=== PATIENT | female | born 1945 | race Caucasian/White ===

== ENCOUNTER 2023-08-31 09:45 | Outpatient (RCR) | payer MEDICARE, SELFPAY ==
--- NOTE | 2023-05-11 10:34 | PT.OIE ---
Current Diagnoses Pain in right hip (05/11/23) Pain in right knee (05/11/23) Muscle weakness (generalized) (05/11/23) Difficulty in walking, not elsewhere classified (05/11/23) Abnormal posture (05/11/23) Past Medical History (Last Updated 03/31/23 @ 06:33 by ABRAM Canela) History of anxiety History of panic attacks History of syncope Visit Care Team Role Provider Type ABRAM Canela Attending Provider Advanced Railcar Switchman Family Provider Primary Care Provider Referring Provider Specialty: [facility] Address: [address] [place] [address] Email: [email or web address] Physical Therapy Initial Evaluation PT-OP-A Visit Information Start: 04/27/23 10:59 Freq: Status: Active Protocol: Document 05/11/23 08:20 [facility] (Rec: 05/11/23 09:07 [facility] [id number]) Out-Patient Physical Therapy Visit Information Visit Information Visit Type Initial Evaluation Visit Note 05/12 Visit Start Time 08:22 Visit Stop Time 09:06 Total Visit Minutes 44 Visit Number 1 Number of HOME HEALTH LPN Visits 0 PT-OP-B Current Condition Start: 04/27/23 10:59 Freq: Status: Active Protocol: Document 05/11/23 08:20 [facility] (Rec: 05/11/23 09:07 [facility] [id number]) Current Condition History of Current Condition Onset Date 6 months ago Current Complaints R knee pain History of Current Condition Pt had R knee pain that her doctor gave her exercsies for about 10 to 12 years ago and it was better. She lost exercises. Its so painful that it wakes her at night. IT feels ok whens he goes to bed. It gets sore when she sits or stands a lot. She has been trying to go to [employer] but soem of the exercises bother her. She likes to garden on her knees. Pt tries to go for a walk everday [place] seh thinks that helps. Uphill is harder than downhill. She is in a hiking group and it feels ok while hiking but she pays for it the next day. Denies swelling. Pt notes she feels like she has to lose weight. She is limiting most things. She takes ibuprofen when she hikes or after or when she needs and it helps. Does have problems in past w/ plantar fascitis and has store bought insoles and is particular w/ shoes. Pt notes buttocks pain that happens when the knee gets pretty back. Once in a while she gets back painb ut notes she tends to lift things that she should not like a wheel [place]. Treatment Goals Patient/Caregiver Goals be able to garden when it is time, be able to do walks w/o pain, be able to do exercises at home and gym w/o pain PT-OP-C Subjective Start: 04/27/23 10:59 Freq: Status: Active Protocol: Document 05/11/23 08:20 [facility] (Rec: 05/11/23 09:07 [facility] [id number]) Patient Questionnaires Lower Extremity Functional Scale LEFS Score 48/80 OP-PT Pain Assessment Location R knee Pain Location Details lat ant and more inf knee Description Sharp Frequency Intermittent Variations/Patterns (upper buttocks pain) Pain Aggravating Factors Standing,Sitting,Walking,Stair Climbing,Bending Other Pain Aggravating Factors middle of night, uphill, leg press, hip abd machine Pain Alleviating Factors Heat,Medication PT-OP-D Balance Start: 04/27/23 10:59 Freq: Status: Active Protocol: Document 05/11/23 08:20 [facility] (Rec: 05/11/23 09:07 [facility] [id number]) Balance Tests Single Limb Standing Single Limb- Right 5 sec Single Limb- Left 8 sec PT-OP-F Manual Assessment Start: 04/27/23 10:59 Freq: Status: Active Protocol: Document 05/11/23 08:20 [facility] (Rec: 05/11/23 09:07 [facility] [id number]) Manual Assessments Joint Mobility Assessment Joint Mobility Assessment IR B femur and IR w/ squat; LLE turned out PT-OP-G Mobility & Gait Start: 04/27/23 10:59 Freq: Status: Active Protocol: Document 05/11/23 08:20 [facility] (Rec: 05/11/23 09:07 [facility] [id number]) OP Gait Assessment Comments Gait Comments comes down hard on RLE and has dec RLE stance time and dec push off PT-OP-K Range of Motion Start: 04/27/23 10:59 Freq: Status: Active Protocol: Document 05/11/23 08:20 [facility] (Rec: 05/11/23 09:07 [facility] [id number]) Knee Goniometric Range of Motion Knee Right Flexion Active (degrees) 114 Extension Active (degrees) 4 Comments ant strain w/ext & pull in HS w/flex Left Flexion Active (degrees) 124 Extension Active (degrees) 2 PT-OP-L Special Tests Start: 04/27/23 10:59 Freq: Status: Active Protocol: Document 05/11/23 08:20 [facility] (Rec: 05/11/23 09:07 [facility] [id number]) Special Tests Knee Special Tests Calvin Test Test Results neg but pt guards Thessaly Test 5 Degrees Test Results positive Apley's Compression Test Results neg PT-OP-M Strength Start: 04/27/23 10:59 Freq: Status: Active Protocol: Document 05/11/23 08:20 [facility] (Rec: 05/11/23 09:07 [facility] [id number]) Hip Strength Hip Manual Muscle Testing Right Flexion (L2) 4 Good Extension (S1) 3+ Fair+ Abduction 3 Fair Adduction 3+ Fair+ External Rotation 4- Good- Internal Rotation 3 Fair Left Flexion (L2) 5 Normal Extension (S1) 3+ Fair+ Abduction 3+ Fair+ Adduction 4 Good External Rotation 4 Good Internal Rotation 4+ Good+ Knee Strength Knee Manual Muscle Testing Right Flexion (S2) 5 Normal Extension (L3) 5 Normal Left Flexion (S2) 5 Normal Extension (L3) 5 Normal Ankle/Foot Strength Ankle and Foot Manual Muscle Testing Right Dorsiflexion (L4) 5 Normal Plantarflexion (S1) 5 Normal Left Dorsiflexion (L4) 5 Normal Plantarflexion (S1) 5 Normal Comments 20 heel raises B PT-OP-T Assessment and Plan Start: 04/27/23 10:59 Freq: Status: Active Protocol: Document 05/11/23 08:20 [facility] (Rec: 05/11/23 09:07 [facility] [id number]) Physical Therapy Assessment Rehab Potential Rehabilitation Potential Good Evaluation Complexity Number of Personal Factors/Comorbidities 1-2 Number of Body Systems Impaired 4 or More Clinical Presentation at Evaluation Evolving Impairments Impairments Activity Tolerance,Balance, Functional Activities, Functional Mobility,Gait,Pain, Posture,ROM,Soft Tissue Mobility,Strength Goals activity Short Term Goal (STG) Pt will be able to sleep w/o inc pain in R knee or hip STG Duration 07/02/23 Penitentiary Goal (LTG) Pt will be able go for walks and hikes w/o pain that day or the next day greater than 2/ 10. LTG Duration 08/03/23 LEFS Impairment 48/80 Short Term Goal (STG) Pt will show improved functional ability by improved score of LEFS to at least 53/ 80 STG Duration 07/02/23 Gamb Cutter Goal (LTG) Pt will show improved functional ability by improved score of LEFS to at least 60/ 80 LTG Duration 08/03/23 strength Short Term Goal (STG) Pt will be indep w/HEP STG Duration 07/02/23 Gamb Cutter Goal (LTG) Pt will score at least 4+/5 on BLE MMT w/o inc pain and at least 3/5 on LPM into all planes to shwo improved stability to allow pt to cont active lifestyle w/o inc pain. LTG Duration 08/03/23 balance Impairment SLS 5 sec R; 8 sec L Short Term Goal (STG) Pt will improve SLS to at least 10 sec B STG Duration 07/02/23 Gamb Cutter Goal (LTG) Pt will improve SLS to at least 15 sec B LTG Duration 08/03/23 Assessment Summary Assessment Pt presents w/R knee pain that started about 6 months ago taht has made her limit some of her activity. She still tries to walks, hike and go to exercise class, but does get pain after these. She has hx of R knee pain years ago that improved w/exercises from her doctor. She also has R hip pain in sup glute which is likely related as she has R>L IR of femur in standing which is likely contributing to dec knee tracking. She has dec ROM of R Knee, dec RLE strength and dec balacne R>LLE. She was encouraged to start w/SL heel raises and SLS at home. She would benefit from skilled PT To address her deficits and improve her ability to remain active w/o inc pain. Physical Therapy Plan Frequency and Duration Frequency of Treatment 1-2x/wk Duration of treatment (weeks) 12 Plan of Care Start Date 05/11/23 Plan of Care End Date 08/03/23 Therapeutic Interventions Therapeutic Interventions Balance Training,Gait Training ,Home Exercise Program,Joint Mobilizations,Manual Therapy, Neuromuscular Re-education, Orthotic/Prosthetic Management ,Patient/Caregiver Education, Self-Care/Home Management,Soft Tissue Mobilization,Taping, Therapeutic Activities, Therapeutic Exercises Modalities Cold Pack/Ice Massage,Electric Stimulation,Hot Packs, Infrared Therapy,Ultrasound Next Visit Focus/Plan Next Note Type Treatment Note Next Visit Plan HEP: sit to stands; SL heel raises, SLS, sidesteps, standing hip ext, clamshells manual to R glutes and joint mobs to hip to improve RLE tracking
--- NOTE | 2023-05-11 10:34 | PT.OPPOC ---
Physical, Occupational & Speech Therapy At [facility] Current Diagnoses Pain in right hip (05/11/23) Pain in right knee (05/11/23) Muscle weakness (generalized) (05/11/23) Difficulty in walking, not elsewhere classified (05/11/23) Abnormal posture (05/11/23) Visit Care Team Role Provider Type ABRAM Canela Attending Provider Advanced Patient Services Technician Family Provider Primary Care Provider Referring Provider Specialty: Family Practice Address: [address] [place] [address], [facility] Email: [email or web address] Plan Of Care PT-OP-T Assessment and Plan Start: 04/27/23 10:59 Freq: Status: Active Protocol: Document 05/11/23 08:20 [facility] (Rec: 05/11/23 09:07 [facility] [id number]) Physical Therapy Assessment Rehab Potential Rehabilitation Potential Good Evaluation Complexity Number of Personal Factors/Comorbidities 1-2 Number of Body Systems Impaired 4 or More Clinical Presentation at Evaluation Evolving Impairments Impairments Activity Tolerance,Balance, Functional Activities, Functional Mobility,Gait,Pain, Posture,ROM,Soft Tissue Mobility,Strength Goals activity Short Term Goal (STG) Pt will be able to sleep w/o inc pain in R knee or hip STG Duration 07/02/23 Prison Goal (LTG) Pt will be able go for walks and hikes w/o pain that day or the next day greater than 2/ 10. LTG Duration 08/03/23 LEFS Impairment 48/80 Short Term Goal (STG) Pt will show improved functional ability by improved score of LEFS to at least 53/ 80 STG Duration 07/02/23 Patient Care Manager Goal (LTG) Pt will show improved functional ability by improved score of LEFS to at least 60/ 80 LTG Duration 08/03/23 strength Short Term Goal (STG) Pt will be indep w/HEP STG Duration 07/02/23 Patient Care Manager Goal (LTG) Pt will score at least 4+/5 on BLE MMT w/o inc pain and at least 3/5 on LPM into all planes to shwo improved stability to allow pt to cont active lifestyle w/o inc pain. LTG Duration 08/03/23 balance Impairment SLS 5 sec R; 8 sec L Short Term Goal (STG) Pt will improve SLS to at least 10 sec B STG Duration 07/02/23 Prison Goal (LTG) Pt will improve SLS to at least 15 sec B LTG Duration 08/03/23 Assessment Summary Assessment Pt presents w/R knee pain that started about 6 months ago taht has made her limit some of her activity. She still tries to walks, hike and go to exercise class, but does get pain after these. She has hx of R knee pain years ago that improved w/exercises from her doctor. She also has R hip pain in sup glute which is likely related as she has R>L IR of femur in standing which is likely contributing to dec knee tracking. She has dec ROM of R Knee, dec RLE strength and dec balacne R>LLE. She was encouraged to start w/SL heel raises and SLS at home. She would benefit from skilled PT To address her deficits and improve her ability to remain active w/o inc pain. Physical Therapy Plan Frequency and Duration Frequency of Treatment 1-2x/wk Duration of treatment (weeks) 12 Plan of Care Start Date 05/11/23 Plan of Care End Date 08/03/23 Therapeutic Interventions Therapeutic Interventions Balance Training,Gait Training ,Home Exercise Program,Joint Mobilizations,Manual Therapy, Neuromuscular Re-education, Orthotic/Prosthetic Management ,Patient/Caregiver Education, Self-Care/Home Management,Soft Tissue Mobilization,Taping, Therapeutic Activities, Therapeutic Exercises Modalities Cold Pack/Ice Massage,Electric Stimulation,Hot Packs, Infrared Therapy,Ultrasound Next Visit Focus/Plan Next Note Type Treatment Note Next Visit Plan HEP: sit to stands; SL heel raises, SLS, sidesteps, standing hip ext, clamshells manual to R glutes and joint mobs to hip to improve RLE tracking Plan of Care Dates Plan of Care Start Date 05/11/23 Plan of Care End Date 08/03/23 Electronically Signed by: Haylee Elmore, PT 05/11/23 5840 If you are in agreement with this Plan of Care, please return a signed and dated copy. I have reviewed this Plan of Care and certify that the skilled therapy services above are required to meet the patient?s needs. Physician Signature Date Printed Name and Credentials Clinical Instructor Signature Printed Name and Credentials
--- NOTE | 2023-05-13 08:19 | PT.OTN ---
Current Diagnoses Pain in right hip (05/13/23) Pain in right knee (05/13/23) Muscle weakness (generalized) (05/13/23) Difficulty in walking, not elsewhere classified (05/13/23) Abnormal posture (05/13/23) Physical Therapy Treatment Note PT-OP-A Visit Information Start: 04/27/23 10:59 Freq: Status: Active Protocol: Document 05/13/23 07:32 [facility] (Rec: 05/13/23 08:19 [facility] [id number]) Out-Patient Physical Therapy Visit Information Visit Information Visit Type Treatment Note Visit Note 06/12 Visit Start Time 07:33 Visit Stop Time 08:15 Total Visit Minutes 42 Visit Number 2 Number of SKIP MINER Visits 0 PT-OP-B Current Condition Start: 04/27/23 10:59 Freq: Status: Active Protocol: Document 05/11/23 08:20 [facility] (Rec: 05/11/23 09:07 [facility] [id number]) Current Condition History of Current Condition Onset Date 6 months ago Current Complaints R knee pain History of Current Condition Pt had R knee pain that her doctor gave her exercsies for about 10 to 12 years ago and it was better. She lost exercises. Its so painful that it wakes her at night. IT feels ok whens he goes to bed. It gets sore when she sits or stands a lot. She has been trying to go to [employer] but soem of the exercises bother her. She likes to garden on her knees. Pt tries to go for a walk everday [place] thinks that helps. [place] is harder than downhill. She is in a hiking group and it feels ok while hiking but she pays for it the next day. Denies swelling. Pt notes she feels like she has to lose weight. She is limiting most things. She takes ibuprofen when she hikes or after or when she needs and it helps. Does have problems in past w/ plantar fascitis and has store bought insoles and is particular w/ shoes. Pt notes buttocks pain that happens when the knee gets pretty back. Once in a while she gets back painb ut notes she tends to lift things that she should not like a wheel [place]. Treatment Goals Patient/Caregiver Goals be able to garden when it is time, be able to do walks w/o pain, be able to do exercises at home and gym w/o pain PT-OP-C Subjective Start: 04/27/23 10:59 Freq: Status: Active Protocol: Document 05/13/23 07:32 [facility] (Rec: 05/13/23 08:19 [facility] [id number]) OP-PT Subjective Patient Comments Patient Comments Pt reports calf was sore w/ heel raises PT-OP-D Balance Start: 04/27/23 10:59 Freq: Status: Active Protocol: Document 05/11/23 08:20 [facility] (Rec: 05/11/23 09:07 [facility] [id number]) Balance Tests Single Limb Standing Single Limb- Right 5 sec Single Limb- Left 8 sec PT-OP-F Manual Assessment Start: 04/27/23 10:59 Freq: Status: Active Protocol: Document 05/11/23 08:20 [facility] (Rec: 05/11/23 09:07 [facility] [id number]) Manual Assessments Joint Mobility Assessment Joint Mobility Assessment IR B femur and IR w/ squat; LLE turned out PT-OP-G Mobility & Gait Start: 04/27/23 10:59 Freq: Status: Active Protocol: Document 05/11/23 08:20 [facility] (Rec: 05/11/23 09:07 [facility] [id number]) OP Gait Assessment Comments Gait Comments comes down hard on RLE and has dec RLE stance time and dec push off PT-OP-K Range of Motion Start: 04/27/23 10:59 Freq: Status: Active Protocol: Document 05/11/23 08:20 [facility] (Rec: 05/11/23 09:07 [facility] [id number]) Knee Goniometric Range of Motion Knee Right Flexion Active (degrees) 114 Extension Active (degrees) 4 Comments ant strain w/ext & pull in HS w/flex Left Flexion Active (degrees) 124 Extension Active (degrees) 2 PT-OP-L Special Tests Start: 04/27/23 10:59 Freq: Status: Active Protocol: Document 05/11/23 08:20 [facility] (Rec: 05/11/23 09:07 [facility] [id number]) Special Tests Knee Special Tests Calvin Test Test Results neg but pt guards Thessaly Test 5 Degrees Test Results positive Apley's Compression Test Results neg PT-OP-M Strength Start: 04/27/23 10:59 Freq: Status: Active Protocol: Document 05/11/23 08:20 [facility] (Rec: 05/11/23 09:07 [facility] [id number]) Hip Strength Hip Manual Muscle Testing Right Flexion (L2) 4 Good Extension (S1) 3+ Fair+ Abduction 3 Fair Adduction 3+ Fair+ External Rotation 4- Good- Internal Rotation 3 Fair Left Flexion (L2) 5 Normal Extension (S1) 3+ Fair+ Abduction 3+ Fair+ Adduction 4 Good External Rotation 4 Good Internal Rotation 4+ Good+ Knee Strength Knee Manual Muscle Testing Right Flexion (S2) 5 Normal Extension (L3) 5 Normal Left Flexion (S2) 5 Normal Extension (L3) 5 Normal Ankle/Foot Strength Ankle and Foot Manual Muscle Testing Right Dorsiflexion (L4) 5 Normal Plantarflexion (S1) 5 Normal Left Dorsiflexion (L4) 5 Normal Plantarflexion (S1) 5 Normal Comments 20 heel raises B PT-OP-Q Treatments Start: 04/27/23 10:59 Freq: Status: Active Protocol: Document 05/13/23 07:32 [facility] (Rec: 05/13/23 08:19 [facility] [id number]) Therapeutic Exercises Sidelying Exercises clamshells Side bilateral Reps/Minutes 10 w/o resistance and 10 w/ resistance Standing Exercises heel raises Standing Exercise Name SL Side bilateral Reps/Minutes 10 hip ext Standing Exercise Name bent over on bar Side bilateral Reps/Minutes 2x10 sit to stand Side bilateral Equipment Used L2 around knees Reps/Minutes 10 sidesteps Side bilateral Equipment Used L1, L2 Reps/Minutes 20ft Manual Therapy Treatment Soft Tissue Mobilization piriformis Body Location R Mobilization Type Sustained Pressure Intensity/Depth Moderate Body Position Sidelying Add Body Location R Mobilization Type Sustained Pressure Intensity/Depth Moderate Body Position Supine Comments w/hip ER quad Body Location R Mobilization Type Rolling Intensity/Depth Moderate Body Position Supine Joint Mobilizations hip Joint R ER M free the ball Body Position Hooklying PT-OP-T Assessment and Plan Start: 04/27/23 10:59 Freq: Status: Active Protocol: Document 05/13/23 07:32 [facility] (Rec: 05/13/23 08:19 [facility] [id number]) Physical Therapy Assessment Goals activity Short Term Goal (STG) Pt will be able to sleep w/o inc pain in R knee or hip STG Duration 3/1/24 Framing Mill Supervisor Goal (LTG) Pt will be able go for walks and hikes w/o pain that day or the next day greater than 2/ 10. LTG Duration 08/03/23 LEFS Impairment 48/80 Short Term Goal (STG) Pt will show improved functional ability by improved score of LEFS to at least 53/ 80 STG Duration 07/02/23 Custodial Goal (LTG) Pt will show improved functional ability by improved score of LEFS to at least 60/ 80 LTG Duration 08/03/23 strength Short Term Goal (STG) Pt will be indep w/HEP STG Duration 07/02/23 Custodial Goal (LTG) Pt will score at least 4+/5 on BLE MMT w/o inc pain and at least 3/5 on LPM into all planes to shwo improved stability to allow pt to cont active lifestyle w/o inc pain. LTG Duration 08/03/23 balance Impairment SLS 5 sec R; 8 sec L Short Term Goal (STG) Pt will improve SLS to at least 10 sec B STG Duration 07/02/23 Framing Mill Supervisor Goal (LTG) Pt will improve SLS to at least 15 sec B LTG Duration 08/03/23 Assessment Summary Assessment Pt did well with exercises w/o inc pain. She requires cues for form and positioning, but does well. She had improved hip ER after manual. Physical Therapy Plan Frequency and Duration Frequency of Treatment 1-2x/wk Duration of treatment (weeks) 12 Plan of Care Start Date 05/11/23 Plan of Care End Date 08/03/23 Next Visit Focus/Plan Next Note Type Treatment Note Next Visit Plan review HEP: sit to stands; SL heel raises, SLS, sidesteps, standing hip ext, clamshells manual to R glutes and joint mobs to hip to improve RLE tracking
--- NOTE | 2023-05-18 08:15 | PT.OTN ---
Current Diagnoses Pain in right hip (05/18/23) Pain in right knee (05/18/23) Muscle weakness (generalized) (05/18/23) Difficulty in walking, not elsewhere classified (05/18/23) Abnormal posture (05/18/23) Physical Therapy Treatment Note PT-OP-A Visit Information Start: 04/27/23 10:59 Freq: Status: Active Protocol: Document 05/18/23 07:30 SP (Rec: 05/18/23 08:19 SP [id number]) Out-Patient Physical Therapy Visit Information Visit Information Visit Type Treatment Note Visit Note 07/10 Visit Start Time 07:30 Visit Stop Time 08:15 Total Visit Minutes 45 Visit Number 3 Number of OPERATIONS MANAGER STATION Visits 1 PT-OP-B Current Condition Start: 04/27/23 10:59 Freq: Status: Active Protocol: Document 05/11/23 08:20 [facility] (Rec: 05/11/23 09:07 [facility] [id number]) Current Condition History of Current Condition Onset Date 6 months ago Current Complaints R knee pain History of Current Condition Pt had R knee pain that her doctor gave her exercsies for about 10 to 12 years ago and it was better. She lost exercises. Its so painful that it wakes her at night. IT feels ok whens he goes to bed. It gets sore when she sits or stands a lot. She has been trying to go to [employer] but soem of the exercises bother her. She likes to garden on her knees. Pt tries to go for a walk everday [place] thinks that helps. [place] is harder than downhill. She is in a hiking group and it feels ok while hiking but she pays for it the next day. Denies swelling. Pt notes she feels like she has to lose weight. She is limiting most things. She takes ibuprofen when she hikes or after or when she needs and it helps. Does have problems in past w/ plantar fascitis and has store bought insoles and is particular w/ shoes. Pt notes buttocks pain that happens when the knee gets pretty back. 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 Treatment Goals Patient/Caregiver Goals be able to garden when it is time, be able to do walks w/o pain, be able to do exercises at home and gym w/o pain PT-OP-C Subjective Start: 04/27/23 10:59 Freq: Status: Active Protocol: Document 05/18/23 07:30 SP (Rec: 05/18/23 08:19 SP [id number]) OP-PT Subjective Patient Comments Patient Comments Pt reports R knee sore after last tx, doing exercise every other day. PT-OP-D Balance Start: 04/27/23 10:59 Freq: Status: Active Protocol: Document 05/11/23 08:20 [facility] (Rec: 05/11/23 09:07 [facility] [id number]) Balance Tests Single Limb Standing Single Limb- Right 5 sec Single Limb- Left 8 sec PT-OP-F Manual Assessment Start: 04/27/23 10:59 Freq: Status: Active Protocol: Document 05/11/23 08:20 [facility] (Rec: 05/11/23 09:07 [facility] [id number]) Manual Assessments Joint Mobility Assessment Joint Mobility Assessment IR B femur and IR w/ squat; LLE turned out PT-OP-G Mobility & Gait Start: 04/27/23 10:59 Freq: Status: Active Protocol: Document 05/11/23 08:20 [facility] (Rec: 05/11/23 09:07 [facility] [id number]) OP Gait Assessment Comments Gait Comments comes down hard on RLE and has dec RLE stance time and dec push off PT-OP-K Range of Motion Start: 04/27/23 10:59 Freq: Status: Active Protocol: Document 05/11/23 08:20 [facility] (Rec: 05/11/23 09:07 [facility] [id number]) Knee Goniometric Range of Motion Knee Right Flexion Active (degrees) 114 Extension Active (degrees) 4 Comments ant strain w/ext & pull in HS w/flex Left Flexion Active (degrees) 124 Extension Active (degrees) 2 PT-OP-L Special Tests Start: 04/27/23 10:59 Freq: Status: Active Protocol: Document 05/11/23 08:20 [facility] (Rec: 05/11/23 09:07 [facility] [id number]) Special Tests Knee Special Tests Calvin Test Test Results neg but pt guards Thessaly Test 5 Degrees Test Results positive Apley's Compression Test Results neg PT-OP-M Strength Start: 04/27/23 10:59 Freq: Status: Active Protocol: Document 05/11/23 08:20 [facility] (Rec: 05/11/23 09:07 [facility] [id number]) Hip Strength Hip Manual Muscle Testing Right Flexion (L2) 4 Good Extension (S1) 3+ Fair+ Abduction 3 Fair Adduction 3+ Fair+ External Rotation 4- Good- Internal Rotation 3 Fair Left Flexion (L2) 5 Normal Extension (S1) 3+ Fair+ Abduction 3+ Fair+ Adduction 4 Good External Rotation 4 Good Internal Rotation 4+ Good+ Knee Strength Knee Manual Muscle Testing Right Flexion (S2) 5 Normal Extension (L3) 5 Normal Left Flexion (S2) 5 Normal Extension (L3) 5 Normal Ankle/Foot Strength Ankle and Foot Manual Muscle Testing Right Dorsiflexion (L4) 5 Normal Plantarflexion (S1) 5 Normal Left Dorsiflexion (L4) 5 Normal Plantarflexion (S1) 5 Normal Comments 20 heel raises B PT-OP-Q Treatments Start: 04/27/23 10:59 Freq: Status: Active Protocol: Document 05/18/23 07:30 SP (Rec: 05/18/23 08:19 SP [id number]) Cardio Equipment Recumbent Elliptical ([employer]!) Duration (Minutes) 6 Resistance 2 Seat Position 5 Other LEs Therapeutic Exercises Sidelying Exercises clamshells Side bilateral Resistance TB #2 below knee Reps/Minutes 2x10 Comments tactile cue below knee, less strain lateral R knee Standing Exercises SLS Side bilateral Equipment Used hands hover table Reps/Minutes 4-7 sec each LE Comments cued elongated posture, TA heel raises Standing Exercise Name SL Side bilateral Equipment Used light contact table Reps/Minutes 10 x2 Comments cued elongated posture, TA hip ext Standing Exercise Name bent over on bar Side bilateral Resistance AROM Reps/Minutes 2x10 Comments contact table sit to stand Standing Exercise Name 1. STS 2. eccentric taps Side bilateral Resistance L2 around knees Equipment Used arms across chest Reps/Minutes 10 reps each Comments cued knees apart sidesteps Standing Exercise Name F/B/Lateral Side bilateral Resistance L2 at mid prieto Reps/Minutes 10 ft 3 laps PT-OP-T Assessment and Plan Start: 04/27/23 10:59 Freq: Status: Active Protocol: Document 05/18/23 07:30 SP (Rec: 05/18/23 08:19 SP [id number]) Physical Therapy Assessment Goals activity Short Term Goal (STG) Pt will be able to sleep w/o inc pain in R knee or hip STG Duration 07/02/23 Fdc Goal (LTG) Pt will be able go for walks and hikes w/o pain that day or the next day greater than 2/ 10. LTG Duration 08/03/23 LEFS Impairment 48/80 Short Term Goal (STG) Pt will show improved functional ability by improved score of LEFS to at least 53/ 80 STG Duration 07/02/23 Wire Worker Goal (LTG) Pt will show improved functional ability by improved score of LEFS to at least 60/ 80 LTG Duration 08/03/23 strength Short Term Goal (STG) Pt will be indep w/HEP STG Duration 07/02/23 Fdc Goal (LTG) Pt will score at least 4+/5 on BLE MMT w/o inc pain and at least 3/5 on LPM into all planes to shwo improved stability to allow pt to cont active lifestyle w/o inc pain. LTG Duration 08/03/23 balance Impairment SLS 5 sec R; 8 sec L Short Term Goal (STG) Pt will improve SLS to at least 10 sec B STG Duration 07/02/23 Fdc Goal (LTG) Pt will improve SLS to at least 15 sec B LTG Duration 08/03/23 Assessment Summary Assessment Pt good tolerance to exercises without pain. Pt tolerated increase DL>SL heel raises with little support stability, increased SLS time and eccentric control during resisted side stepping without UE support. Pt reports no pain and felt good muscle tiring end tx. Good understanding of update progression for with same HOs HEP. Physical Therapy Plan Frequency and Duration Frequency of Treatment 1-2x/wk Duration of treatment (weeks) 12 Plan of Care Start Date 05/11/23 Plan of Care End Date 08/03/23 Therapeutic Interventions Therapeutic Interventions Balance Training,Gait Training ,Home Exercise Program,Joint Mobilizations,Manual Therapy, Neuromuscular Re-education, Orthotic/Prosthetic Management ,Patient/Caregiver Education, Self-Care/Home Management,Soft Tissue Mobilization,Taping, Therapeutic Activities, Therapeutic Exercises Modalities Cold Pack/Ice Massage,Electric Stimulation,Hot Packs, Infrared Therapy,Ultrasound Next Visit Focus/Plan Next Note Type Treatment Note Next Visit Plan review HEP: sit to stands; SL heel raises, SLS, sidesteps, standing hip ext, clamshells manual to R glutes and joint mobs to hip to improve RLE tracking
--- NOTE | 2023-05-19 08:15 | PT.OTN ---
Current Diagnoses Pain in right hip (05/18/23) Pain in right knee (05/18/23) Muscle weakness (generalized) (05/18/23) Difficulty in walking, not elsewhere classified (05/18/23) Abnormal posture (05/18/23) Physical Therapy Treatment Note PT-OP-A Visit Information Start: 04/27/23 10:59 Freq: Status: Active Protocol: Document 05/18/23 07:30 SP (Rec: 05/18/23 08:19 SP [id number]) Out-Patient Physical Therapy Visit Information Visit Information Visit Type Treatment Note Visit Note 07/10 Visit Start Time 07:30 Visit Stop Time 08:15 Total Visit Minutes 45 Visit Number 3 Number of DOPE AND FABRIC WORKER Visits 1 PT-OP-B Current Condition Start: 04/27/23 10:59 Freq: Status: Active Protocol: Document 05/11/23 08:20 [facility] (Rec: 05/11/23 09:07 [facility] [id number]) Current Condition History of Current Condition Onset Date 6 months ago Current Complaints R knee pain History of Current Condition Pt had R knee pain that her doctor gave her exercsies for about 10 to 12 years ago and it was better. She lost exercises. Its so painful that it wakes her at night. IT feels ok whens he goes to bed. It gets sore when she sits or stands a lot. She has been trying to go to [employer] but soem of the exercises bother her. She likes to garden on her knees. Pt tries to go for a walk everday [place] thinks that helps. [place] is harder than downhill. She is in a hiking group and it feels ok while hiking but she pays for it the next day. Denies swelling. Pt notes she feels like she has to lose weight. She is limiting most things. She takes ibuprofen when she hikes or after or when she needs and it helps. Does have problems in past w/ plantar fascitis and has store bought insoles and is particular w/ shoes. Pt notes buttocks pain that happens when the knee gets pretty back. Once in a while she gets back painb ut notes she tends to lift things that she should not like a wheel [place] [employer] [place]. Treatment Goals Patient/Caregiver Goals be able to garden when it is time, be able to do walks w/o pain, be able to do exercises at home and gym w/o pain PT-OP-C Subjective Start: 04/27/23 10:59 Freq: Status: Active Protocol: Document 05/18/23 07:30 SP (Rec: 05/18/23 08:19 SP [id number]) OP-PT Subjective Patient Comments Patient Comments Pt reports R knee sore after last tx, doing exercise every other day. PT-OP-D Balance Start: 04/27/23 10:59 Freq: Status: Active Protocol: Document 05/11/23 08:20 [facility] (Rec: 05/11/23 09:07 [facility] [id number]) Balance Tests Single Limb Standing Single Limb- Right 5 sec Single Limb- Left 8 sec PT-OP-F Manual Assessment Start: 04/27/23 10:59 Freq: Status: Active Protocol: Document 05/11/23 08:20 [facility] (Rec: 05/11/23 09:07 [facility] [id number]) Manual Assessments Joint Mobility Assessment Joint Mobility Assessment IR B femur and IR w/ squat; LLE turned out PT-OP-G Mobility & Gait Start: 04/27/23 10:59 Freq: Status: Active Protocol: Document 05/11/23 08:20 [facility] (Rec: 05/11/23 09:07 [facility] [id number]) OP Gait Assessment Comments Gait Comments comes down hard on RLE and has dec RLE stance time and dec push off PT-OP-K Range of Motion Start: 04/27/23 10:59 Freq: Status: Active Protocol: Document 05/11/23 08:20 [facility] (Rec: 05/11/23 09:07 [facility] [id number]) Knee Goniometric Range of Motion Knee Right Flexion Active (degrees) 114 Extension Active (degrees) 4 Comments ant strain w/ext & pull in HS w/flex Left Flexion Active (degrees) 124 Extension Active (degrees) 2 PT-OP-L Special Tests Start: 04/27/23 10:59 Freq: Status: Active Protocol: Document 05/11/23 08:20 [facility] (Rec: 05/11/23 09:07 [facility] [id number]) Special Tests Knee Special Tests Calvin Test Test Results neg but pt guards Thessaly Test 5 Degrees Test Results positive Apley's Compression Test Results neg PT-OP-M Strength Start: 04/27/23 10:59 Freq: Status: Active Protocol: Document 05/11/23 08:20 [facility] (Rec: 05/11/23 09:07 [facility] [id number]) Hip Strength Hip Manual Muscle Testing Right Flexion (L2) 4 Good Extension (S1) 3+ Fair+ Abduction 3 Fair Adduction 3+ Fair+ External Rotation 4- Good- Internal Rotation 3 Fair Left Flexion (L2) 5 Normal Extension (S1) 3+ Fair+ Abduction 3+ Fair+ Adduction 4 Good External Rotation 4 Good Internal Rotation 4+ Good+ Knee Strength Knee Manual Muscle Testing Right Flexion (S2) 5 Normal Extension (L3) 5 Normal Left Flexion (S2) 5 Normal Extension (L3) 5 Normal Ankle/Foot Strength Ankle and Foot Manual Muscle Testing Right Dorsiflexion (L4) 5 Normal Plantarflexion (S1) 5 Normal Left Dorsiflexion (L4) 5 Normal Plantarflexion (S1) 5 Normal Comments 20 heel raises B PT-OP-Q Treatments Start: 04/27/23 10:59 Freq: Status: Active Protocol: Document 05/18/23 07:30 SP (Rec: 05/18/23 08:19 SP [id number]) Cardio Equipment Recumbent Elliptical ([employer]) Duration (Minutes) 6 Resistance 2 Seat Position 5 Other LEs Therapeutic Exercises Sidelying Exercises clamshells Side bilateral Resistance TB #2 below knee Reps/Minutes 2x10 Comments tactile cue below knee, less strain lateral R knee Standing Exercises SLS Side bilateral Equipment Used hands hover table Reps/Minutes 4-7 sec each LE Comments cued elongated posture, TA heel raises Standing Exercise Name SL Side bilateral Equipment Used light contact table Reps/Minutes 10 x2 Comments cued elongated posture, TA hip ext Standing Exercise Name bent over on bar Side bilateral Resistance AROM Reps/Minutes 2x10 Comments contact table sit to stand Standing Exercise Name 1. STS 2. eccentric taps Side bilateral Resistance L2 around knees Equipment Used arms across chest Reps/Minutes 10 reps each Comments cued knees apart sidesteps Standing Exercise Name F/B/Lateral Side bilateral Resistance L2 at mid prieto Reps/Minutes 10 ft 3 laps PT-OP-T Assessment and Plan Start: 04/27/23 10:59 Freq: Status: Active Protocol: Document 05/18/23 07:30 SP (Rec: 05/18/23 08:19 SP [id number]) Physical Therapy Assessment Goals activity Short Term Goal (STG) Pt will be able to sleep w/o inc pain in R knee or hip STG Duration 07/02/23 Fpc Goal (LTG) Pt will be able go for walks and hikes w/o pain that day or the next day greater than 2/ 10. LTG Duration 08/03/23 LEFS Impairment 48/80 Short Term Goal (STG) Pt will show improved functional ability by improved score of LEFS to at least 53/ 80 STG Duration 07/02/23 Exchange Consultant Goal (LTG) Pt will show improved functional ability by improved score of LEFS to at least 60/ 80 LTG Duration 08/03/23 strength Short Term Goal (STG) Pt will be indep w/HEP STG Duration 07/02/23 Fpc Goal (LTG) Pt will score at least 4+/5 on BLE MMT w/o inc pain and at least 3/5 on LPM into all planes to shwo improved stability to allow pt to cont active lifestyle w/o inc pain. LTG Duration 08/03/23 balance Impairment SLS 5 sec R; 8 sec L Short Term Goal (STG) Pt will improve SLS to at least 10 sec B STG Duration 07/02/23 Fpc Goal (LTG) Pt will improve SLS to at least 15 sec B LTG Duration 08/03/23 Assessment Summary Assessment Pt good tolerance to exercises without pain. Pt tolerated increase DL>SL heel raises with little support stability, increased SLS time and eccentric control during resisted side stepping without UE support. Pt reports no pain and felt good muscle tiring end tx. Good understanding of update progression for with same HOs HEP. Physical Therapy Plan Frequency and Duration Frequency of Treatment 1-2x/wk Duration of treatment (weeks) 12 Plan of Care Start Date 05/11/23 Plan of Care End Date 08/03/23 Therapeutic Interventions Therapeutic Interventions Balance Training,Gait Training ,Home Exercise Program,Joint Mobilizations,Manual Therapy, Neuromuscular Re-education, Orthotic/Prosthetic Management ,Patient/Caregiver Education, Self-Care/Home Management,Soft Tissue Mobilization,Taping, Therapeutic Activities, Therapeutic Exercises Modalities Cold Pack/Ice Massage,Electric Stimulation,Hot Packs, Infrared Therapy,Ultrasound Next Visit Focus/Plan Next Note Type Treatment Note Next Visit Plan review HEP: sit to stands; SL heel raises, SLS, sidesteps, standing hip ext, clamshells manual to R glutes and joint mobs to hip to improve RLE tracking
--- NOTE | 2023-05-20 08:15 | PT.OTN ---
Current Diagnoses Pain in right hip (05/20/23) Pain in right knee (05/20/23) Muscle weakness (generalized) (05/20/23) Difficulty in walking, not elsewhere classified (05/20/23) Abnormal posture (05/20/23) Physical Therapy Treatment Note PT-OP-A Visit Information Start: 04/27/23 10:59 Freq: Status: Active Protocol: Document 05/20/23 07:29 SP (Rec: 05/20/23 08:23 SP [id number]) Out-Patient Physical Therapy Visit Information Visit Information Visit Type Treatment Note Visit Note 08/10 Visit Start Time 07:30 Visit Stop Time 08:15 Total Visit Minutes 45 Visit Number 4 Number of ROUGE MILLER Visits 2 PT-OP-B Current Condition Start: 04/27/23 10:59 Freq: Status: Active Protocol: Document 05/11/23 08:20 [facility] (Rec: 05/11/23 09:07 [facility] [id number]) Current Condition History of Current Condition Onset Date 6 months ago Current Complaints R knee pain History of Current Condition Pt had R knee pain that her doctor gave her exercsies for about 10 to 12 years ago and it was better. She lost exercises. Its so painful that it wakes her at night. IT feels ok whens he goes to bed. It gets sore when she sits or stands a lot. She has been trying to go to [employer] but soem of the exercises bother her. She likes to garden on her knees. Pt tries to go for a walk everday [place] seh thinks that helps. [place]ph[place] is harder than downhill. She is in a hiking group and it feels ok while hiking but she pays for it the next day. Denies swelling. Pt notes she feels like she has to lose weight. She is limiting most things. She takes ibuprofen when she hikes or after or when she needs and it helps. Does have problems in past w/ plantar fascitis and has store bought insoles and is particular w/ shoes. Pt notes buttocks pain that happens when the knee gets pretty back. Once in a while she gets back painb ut notes she tends to lift things that she should not like a wheel [place]. Treatment Goals Patient/Caregiver Goals be able to garden when it is time, be able to do walks w/o pain, be able to do exercises at home and gym w/o pain PT-OP-C Subjective Start: 04/27/23 10:59 Freq: Status: Active Protocol: Document 05/20/23 07:29 SP (Rec: 05/20/23 08:23 SP [id number]) OP-PT Subjective Patient Comments Patient Comments Pt reports little effort soreness. She stated was standing in kitchen and knee was achiness. PT-OP-D Balance Start: 04/27/23 10:59 Freq: Status: Active Protocol: Document 05/11/23 08:20 [facility] (Rec: 05/11/23 09:07 [facility] [id number]) Balance Tests Single Limb Standing Single Limb- Right 5 sec Single Limb- Left 8 sec PT-OP-F Manual Assessment Start: 04/27/23 10:59 Freq: Status: Active Protocol: Document 05/11/23 08:20 [facility] (Rec: 05/11/23 09:07 [facility] [id number]) Manual Assessments Joint Mobility Assessment Joint Mobility Assessment IR B femur and IR w/ squat; LLE turned out PT-OP-G Mobility & Gait Start: 04/27/23 10:59 Freq: Status: Active Protocol: Document 05/11/23 08:20 [facility] (Rec: 05/11/23 09:07 [facility] [id number]) OP Gait Assessment Comments Gait Comments comes down hard on RLE and has dec RLE stance time and dec push off PT-OP-K Range of Motion Start: 04/27/23 10:59 Freq: Status: Active Protocol: Document 05/11/23 08:20 [facility] (Rec: 05/11/23 09:07 [facility] [id number]) Knee Goniometric Range of Motion Knee Right Flexion Active (degrees) 114 Extension Active (degrees) 4 Comments ant strain w/ext & pull in HS w/flex Left Flexion Active (degrees) 124 Extension Active (degrees) 2 PT-OP-L Special Tests Start: 04/27/23 10:59 Freq: Status: Active Protocol: Document 05/11/23 08:20 [facility] (Rec: 05/11/23 09:07 [facility] [id number]) Special Tests Knee Special Tests Calvin Test Test Results neg but pt guards Thessaly Test 5 Degrees Test Results positive Apley's Compression Test Results neg PT-OP-M Strength Start: 04/27/23 10:59 Freq: Status: Active Protocol: Document 05/11/23 08:20 [facility] (Rec: 05/11/23 09:07 [facility] [id number]) Hip Strength Hip Manual Muscle Testing Right Flexion (L2) 4 Good Extension (S1) 3+ Fair+ Abduction 3 Fair Adduction 3+ Fair+ External Rotation 4- Good- Internal Rotation 3 Fair Left Flexion (L2) 5 Normal Extension (S1) 3+ Fair+ Abduction 3+ Fair+ Adduction 4 Good External Rotation 4 Good Internal Rotation 4+ Good+ Knee Strength Knee Manual Muscle Testing Right Flexion (S2) 5 Normal Extension (L3) 5 Normal Left Flexion (S2) 5 Normal Extension (L3) 5 Normal Ankle/Foot Strength Ankle and Foot Manual Muscle Testing Right Dorsiflexion (L4) 5 Normal Plantarflexion (S1) 5 Normal Left Dorsiflexion (L4) 5 Normal Plantarflexion (S1) 5 Normal Comments 20 heel raises B PT-OP-Q Treatments Start: 04/27/23 10:59 Freq: Status: Active Protocol: Document 05/20/23 07:29 SP (Rec: 05/20/23 08:23 SP [id number]) Cardio Equipment Recumbent Elliptical (Biodex) Duration (Minutes) 6 Resistance 3 Seat Position 5 Other LEs- recumbent bike next tx Gym Equipment Shuttle Recovery unilateral squat Details knee alignment Resistance 25# dark navy Reps/Time 2x10 bilateral squat Details knee alignment- lateral midline see inside ankles Resistance 50# 2 dark navy Reps/Time 2x10 Therapeutic Exercises Sitting Exercises stretching Sitting Exercise Name 1.HS 2. piriformis- added to HEP provided HOs Side bilateral Resistance R>L Reps/Minutes 30 Comments good feedback response Standing Exercises calf stretch Standing Exercise Name added to HEP Side bilateral Reps/Minutes 30 x2 Comments good feedback response stretch set ups Standing Exercise Name step ups: trialed in PT Side bilateral Equipment Used Rail PRN during RLE Reps/Minutes 8 reps each, 2nd set 3 rep- little glut discomfort- not add HEP yet Comments cued slower pacing, less momentum, L knee track, core fac- little bal chall sit to stand Standing Exercise Name 1. STS 2. eccentric taps Side bilateral Resistance L2 around knees Equipment Used arms across chest Reps/Minutes 10 reps each Comments cued knees apart- little sore R lateral knee post stepups Other Exercises self STMs Other Exercise Name ball wall glut Side right Reps/Minutes 30 sec Comments good feedback response, cues split stance for jazmine pressure beneficial Manual Therapy Treatment Soft Tissue Mobilization piriformis Body Location R Mobilization Type Sustained Pressure Intensity/Depth Moderate Body Position Sidelying Comments post step ups, improved decrease muscle tightness quad Body Location R quad and ITB Mobilization Type Rolling Intensity/Depth Moderate Body Position Sidelying Comments post step ups, improved decrease muscle tightness- discussed use of rolling pin at home, next tx assess response and if tried for self benefits. Joint Mobilizations R knee jt Joint R Direction A<>P Grade II Body Position Hooklying Comments reports painfree through various range into flexion PT-OP-T Assessment and Plan Start: 04/27/23 10:59 Freq: Status: Active Protocol: Document 05/20/23 07:29 SP (Rec: 05/20/23 08:23 SP [id number]) Physical Therapy Assessment Goals activity Short Term Goal (STG) Pt will be able to sleep w/o inc pain in R knee or hip STG Duration 07/02/23 Fdc Goal (LTG) Pt will be able go for walks and hikes w/o pain that day or the next day greater than 2/ 10. LTG Duration 08/03/23 LEFS Impairment 48/80 Short Term Goal (STG) Pt will show improved functional ability by improved score of LEFS to at least 53/ 80 STG Duration 07/02/23 Fdc Goal (LTG) Pt will show improved functional ability by improved score of LEFS to at least 60/ 80 LTG Duration 08/03/23 strength Short Term Goal (STG) Pt will be indep w/HEP STG Duration 07/02/23 Television Station Manager Goal (LTG) Pt will score at least 4+/5 on BLE MMT w/o inc pain and at least 3/5 on LPM into all planes to shwo improved stability to allow pt to cont active lifestyle w/o inc pain. LTG Duration 08/03/23 balance Impairment SLS 5 sec R; 8 sec L Short Term Goal (STG) Pt will improve SLS to at least 10 sec B STG Duration 07/02/23 Fdc Goal (LTG) Pt will improve SLS to at least 15 sec B LTG Duration 08/03/23 Assessment Summary Assessment Pt responded well to manual, decreased tightness (after step up performance) R hip and lateral R knee. Cues for R knee tracking with mid foot and heel press glut drive asc/ descend repeated step ups for stability strengthening, trial only at this time. Pt reports doing well with all other HEP . Good response to added stretching end tx for increased flexibility/ROM to R hip. Painfree end tx. Physical Therapy Plan Frequency and Duration Frequency of Treatment 1-2x/wk Duration of treatment (weeks) 12 Plan of Care Start Date 05/11/23 Plan of Care End Date 08/03/23 Therapeutic Interventions Therapeutic Interventions Balance Training,Gait Training ,Home Exercise Program,Joint Mobilizations,Manual Therapy, Neuromuscular Re-education, Orthotic/Prosthetic Management ,Patient/Caregiver Education, Self-Care/Home Management,Soft Tissue Mobilization,Taping, Therapeutic Activities, Therapeutic Exercises Modalities Cold Pack/Ice Massage,Electric Stimulation,Hot Packs, Infrared Therapy,Ultrasound Next Visit Focus/Plan Next Note Type Treatment Note Next Visit Plan review HEP: sit to stands; SL heel raises, SLS, sidesteps, standing hip ext, clamshells manual to R glutes and joint mobs to hip to improve RLE tracking
--- NOTE | 2023-05-24 13:43 | PT.OTN ---
Current Diagnoses Pain in right hip (05/24/23) Pain in right knee (05/24/23) Muscle weakness (generalized) (05/24/23) Difficulty in walking, not elsewhere classified (05/24/23) Abnormal posture (05/24/23) Physical Therapy Treatment Note PT-OP-A Visit Information Start: 04/27/23 10:59 Freq: Status: Active Protocol: Document 05/24/23 09:54 NB (Rec: 05/24/23 10:35 [facility] [id number]) Out-Patient Physical Therapy Visit Information Visit Information Visit Type Treatment Note Visit Note 09/09 Visit Start Time 09:50 Visit Stop Time 10:30 Total Visit Minutes 40 Visit Number 5 Number of LOCAL SALES ASSOCIATE Visits 3 PT-OP-B Current Condition Start: 04/27/23 10:59 Freq: Status: Active Protocol: Document 05/11/23 08:20 [facility] (Rec: 05/11/23 09:07 [facility] [id number]) Current Condition History of Current Condition Onset Date 6 months ago Current Complaints R knee pain History of Current Condition Pt had R knee pain that her doctor gave her exercsies for about 10 to 12 years ago and it was better. She lost exercises. Its so painful that it wakes her at night. IT feels ok whens he goes to bed. It gets sore when she sits or stands a lot. She has been trying to go to [employer] but soem of the exercises bother her. She likes to garden on her knees. Pt tries to go for a walk everday [place] thinks that helps. [place] is harder than downhill. She is in a hiking group and it feels ok while hiking but she pays for it the next day. Denies swelling. Pt notes she feels like she has to lose weight. She is limiting most things. She takes ibuprofen when she hikes or after or when she needs and it helps. Does have problems in past w/ plantar fascitis and has store bought insoles and is particular w/ shoes. Pt notes buttocks pain that happens when the knee gets pretty back. Once in a while she gets back painb ut notes she tends to lift things that she should not like a wheel [place]. Treatment Goals Patient/Caregiver Goals be able to garden when it is time, be able to do walks w/o pain, be able to do exercises at home and gym w/o pain PT-OP-C Subjective Start: 04/27/23 10:59 Freq: Status: Active Protocol: Document 05/24/23 09:54 [facility] (Rec: 05/24/23 10:35 [facility] [id number]) OP-PT Subjective Patient Comments Patient Comments Pt went for a walk this morning with a little uphill and had some R knee soreness. She presents with rolling pin and theraband and is not sure how to do self-massage. Balance ex's are challenging. PT-OP-D Balance Start: 04/27/23 10:59 Freq: Status: Active Protocol: Document 05/11/23 08:20 [facility] (Rec: 05/11/23 09:07 [facility] [id number]) Balance Tests Single Limb Standing Single Limb- Right 5 sec Single Limb- Left 8 sec PT-OP-F Manual Assessment Start: 04/27/23 10:59 Freq: Status: Active Protocol: Document 05/11/23 08:20 [facility] (Rec: 05/11/23 09:07 [facility] [id number]) Manual Assessments Joint Mobility Assessment Joint Mobility Assessment IR B femur and IR w/ squat; LLE turned out PT-OP-G Mobility & Gait Start: 04/27/23 10:59 Freq: Status: Active Protocol: Document 05/11/23 08:20 [facility] (Rec: 05/11/23 09:07 [facility] [id number]) OP Gait Assessment Comments Gait Comments comes down hard on RLE and has dec RLE stance time and dec push off PT-OP-K Range of Motion Start: 04/27/23 10:59 Freq: Status: Active Protocol: Document 05/11/23 08:20 [facility] (Rec: 05/11/23 09:07 [facility] [id number]) Knee Goniometric Range of Motion Knee Right Flexion Active (degrees) 114 Extension Active (degrees) 4 Comments ant strain w/ext & pull in HS w/flex Left Flexion Active (degrees) 124 Extension Active (degrees) 2 PT-OP-L Special Tests Start: 04/27/23 10:59 Freq: Status: Active Protocol: Document 05/11/23 08:20 [facility] (Rec: 05/11/23 09:07 [facility] [id number]) Special Tests Knee Special Tests Calvin Test Test Results neg but pt guards Thessaly Test 5 Degrees Test Results positive Apley's Compression Test Results neg PT-OP-M Strength Start: 04/27/23 10:59 Freq: Status: Active Protocol: Document 05/11/23 08:20 [facility] (Rec: 05/11/23 09:07 [facility] [id number]) Hip Strength Hip Manual Muscle Testing Right Flexion (L2) 4 Good Extension (S1) 3+ Fair+ Abduction 3 Fair Adduction 3+ Fair+ External Rotation 4- Good- Internal Rotation 3 Fair Left Flexion (L2) 5 Normal Extension (S1) 3+ Fair+ Abduction 3+ Fair+ Adduction 4 Good External Rotation 4 Good Internal Rotation 4+ Good+ Knee Strength Knee Manual Muscle Testing Right Flexion (S2) 5 Normal Extension (L3) 5 Normal Left Flexion (S2) 5 Normal Extension (L3) 5 Normal Ankle/Foot Strength Ankle and Foot Manual Muscle Testing Right Dorsiflexion (L4) 5 Normal Plantarflexion (S1) 5 Normal Left Dorsiflexion (L4) 5 Normal Plantarflexion (S1) 5 Normal Comments 20 heel raises B PT-OP-Q Treatments Start: 04/27/23 10:59 Freq: Status: Active Protocol: Document 05/24/23 09:54 [facility] (Rec: 05/24/23 10:35 [facility] [id number]) Gym Equipment Shuttle Balance Red clips Details WBOS, NBOS, Stride stance Comments a/p weight shifting in each. Pt is able to hold board steady in NBOS without DIGITAL SALES ASSISTANT after 2'. Cues for glute engagement, upright posture. Therapeutic Exercises Standing Exercises heel raises Standing Exercise Name SL Side bilateral Equipment Used handrail Reps/Minutes 10 x2 Comments eccentric control, less a/p shifting, glute activation sit to stand Standing Exercise Name 1. STS 2. eccentric taps Side bilateral Resistance L2 around knees Equipment Used arms across chest Reps/Minutes 10 reps each Comments cued knees apart- little sore R lateral knee post stepups Other Exercises self STMs Other Exercise Name ball wall glut Side right Reps/Minutes 30 sec Comments good feedback response, cues split stance for jazmine pressure beneficial PT-OP-T Assessment and Plan Start: 04/27/23 10:59 Freq: Status: Active Protocol: Document 05/24/23 09:54 [facility] (Rec: 05/24/23 10:35 [facility] [id number]) Physical Therapy Assessment Goals activity Short Term Goal (STG) Pt will be able to sleep w/o inc pain in R knee or hip STG Duration 07/02/23 Supervisor [employer] Goal (LTG) Pt will be able go for walks and hikes w/o pain that day or the next day greater than 2/ 10. LTG Duration 08/03/23 LEFS Impairment 48/80 Short Term Goal (STG) Pt will show improved functional ability by improved score of LEFS to at least 53/ 80 STG Duration 07/02/23 Super[employer] Goal (LTG) Pt will show improved functional ability by improved score of LEFS to at least 60/ 80 LTG Duration 08/03/23 strength Short Term Goal (STG) Pt will be indep w/HEP STG Duration 07/02/23 Fpc Goal (LTG) Pt will score at least 4+/5 on BLE MMT w/o inc pain and at least 3/5 on LPM into all planes to shwo improved stability to allow pt to cont active lifestyle w/o inc pain. LTG Duration 08/03/23 balance Impairment SLS 5 sec R; 8 sec L Short Term Goal (STG) Pt will improve SLS to at least 10 sec B STG Duration 07/02/23 Fpc Goal (LTG) Pt will improve SLS to at least 15 sec B LTG Duration 08/03/23 Assessment Summary Assessment Treatment focus on self-STM, STS review and balance, and review of pain management interventions (ice, stretching , self-STM). Pt requires cues for eccentric control with SL raises. Pt is able to maintain level pelvis with visual feedback for SL stance. Education to pt for factors for balance (proprioception, vision, vestibular). On Shuttle Balance pt is able to hold board steady in WBOS and NBOS without DIGITAL SALES ASSISTANT after 2'. Cues for glute engagement, upright posture. Physical Therapy Plan Frequency and Duration Frequency of Treatment 1-2x/wk Duration of treatment (weeks) 12 Plan of Care Start Date 05/11/23 Plan of Care End Date 08/03/23 Therapeutic Interventions Therapeutic Interventions Balance Training,Gait Training ,Home Exercise Program,Joint Mobilizations,Manual Therapy, Neuromuscular Re-education, Orthotic/Prosthetic Management ,Patient/Caregiver Education, Self-Care/Home Management,Soft Tissue Mobilization,Taping, Therapeutic Activities, Therapeutic Exercises Modalities Cold Pack/Ice Massage,Electric Stimulation,Hot Packs, Infrared Therapy,Ultrasound Next Visit Focus/Plan Next Note Type Treatment Note Next Visit Plan review HEP: sit to stands; SL Assess response to last treatment (shuttle balance). heel raises, SLS, sidesteps, standing hip ext, clamshells manual to R glutes and joint mobs to hip to improve RLE tracking
--- NOTE | 2023-05-28 09:45 | PT.OTN ---
Current Diagnoses Pain in right hip (05/28/23) Pain in right knee (05/28/23) Muscle weakness (generalized) (05/28/23) Difficulty in walking, not elsewhere classified (05/28/23) Abnormal posture (05/28/23) Physical Therapy Treatment Note PT-OP-A Visit Information Start: 04/27/23 10:59 Freq: Status: Active Protocol: Document 05/28/23 09:01 SP (Rec: 05/28/23 09:53 SP [id number]) Out-Patient Physical Therapy Visit Information Visit Information Visit Type Treatment Note Visit Note 10/10 Visit Start Time 09:01 Visit Stop Time 09:45 Visit Number 6 Number of SERVICES ADVISOR Visits 4 PT-OP-B Current Condition Start: 04/27/23 10:59 Freq: Status: Active Protocol: Document 05/11/23 08:20 [facility] (Rec: 05/11/23 09:07 [facility] [id number]) Current Condition History of Current Condition Onset Date 6 months ago Current Complaints R knee pain History of Current Condition Pt had R knee pain that her doctor gave her exercsies for about 10 to 12 years ago and it was better. She lost exercises. Its so painful that it wakes her at night. IT feels ok whens he goes to bed. It gets sore when she sits or stands a lot. She has been trying to go to [email or web address] but soem of the exercises bother her. She likes to garden on her knees. Pt tries to go for a walk everday [place] thinks that helps. Uphill is harder than downhill. She is in a hiking group and it feels ok while hiking but she pays for it the next day. Denies swelling. Pt notes she feels like she has to lose weight. She is limiting most things. She takes ibuprofen when she hikes or after or when she needs and it helps. Does have problems in past w/ plantar fascitis and has store bought insoles and is particular w/ shoes. Pt notes buttocks pain that happens when the knee gets pretty back. Once in a while she gets back painb ut notes she tends to lift things that she should not like a wheel [email or web address]. Treatment Goals Patient/Caregiver Goals be able to garden when it is time, be able to do walks w/o pain, be able to do exercises at home and gym w/o pain PT-OP-C Subjective Start: 04/27/23 10:59 Freq: Status: Active Protocol: Document 05/28/23 09:01 SP (Rec: 05/28/23 09:53 SP [id number]) OP-PT Subjective Patient Comments Patient Comments Pt reports little discomfort lateral inferior corner R patella. PT-OP-D Balance Start: 04/27/23 10:59 Freq: Status: Active Protocol: Document 05/11/23 08:20 [facility] (Rec: 05/11/23 09:07 [facility] [id number]) Balance Tests Single Limb Standing Single Limb- Right 5 sec Single Limb- Left 8 sec PT-OP-F Manual Assessment Start: 04/27/23 10:59 Freq: Status: Active Protocol: Document 05/11/23 08:20 [facility] (Rec: 05/11/23 09:07 [facility] [id number]) Manual Assessments Joint Mobility Assessment Joint Mobility Assessment IR B femur and IR w/ squat; LLE turned out PT-OP-G Mobility & Gait Start: 04/27/23 10:59 Freq: Status: Active Protocol: Document 05/11/23 08:20 [facility] (Rec: 05/11/23 09:07 [facility] [id number]) OP Gait Assessment Comments Gait Comments comes down hard on RLE and has dec RLE stance time and dec push off PT-OP-K Range of Motion Start: 04/27/23 10:59 Freq: Status: Active Protocol: Document 05/11/23 08:20 [facility] (Rec: 05/11/23 09:07 [facility] [id number]) Knee Goniometric Range of Motion Knee Right Flexion Active (degrees) 114 Extension Active (degrees) 4 Comments ant strain w/ext & pull in HS w/flex Left Flexion Active (degrees) 124 Extension Active (degrees) 2 PT-OP-L Special Tests Start: 04/27/23 10:59 Freq: Status: Active Protocol: Document 05/11/23 08:20 [facility] (Rec: 05/11/23 09:07 [facility] [id number]) Special Tests Knee Special Tests Calvin Test Test Results neg but pt guards Thessaly Test 5 Degrees Test Results positive Apley's Compression Test Results neg PT-OP-M Strength Start: 04/27/23 10:59 Freq: Status: Active Protocol: Document 05/11/23 08:20 [facility] (Rec: 05/11/23 09:07 [facility] [id number]) Hip Strength Hip Manual Muscle Testing Right Flexion (L2) 4 Good Extension (S1) 3+ Fair+ Abduction 3 Fair Adduction 3+ Fair+ External Rotation 4- Good- Internal Rotation 3 Fair Left Flexion (L2) 5 Normal Extension (S1) 3+ Fair+ Abduction 3+ Fair+ Adduction 4 Good External Rotation 4 Good Internal Rotation 4+ Good+ Knee Strength Knee Manual Muscle Testing Right Flexion (S2) 5 Normal Extension (L3) 5 Normal Left Flexion (S2) 5 Normal Extension (L3) 5 Normal Ankle/Foot Strength Ankle and Foot Manual Muscle Testing Right Dorsiflexion (L4) 5 Normal Plantarflexion (S1) 5 Normal Left Dorsiflexion (L4) 5 Normal Plantarflexion (S1) 5 Normal Comments 20 heel raises B PT-OP-Q Treatments Start: 04/27/23 10:59 Freq: Status: Active Protocol: Document 05/28/23 09:01 SP (Rec: 05/28/23 09:53 SP [id number]) Gym Equipment Shuttle Recovery unilateral squat Details knee alignment see inside ankle Resistance 25# dark navy Reps/Time 2x15 bilateral squat Details knee alignment- lateral midline see inside ankles Resistance 50#> 62#- 2 dark navy Reps/Time x20 Therapeutic Exercises Supine Exercises stretching Supine Exercise Name 1. HS 2. quad (prone) 3. ADD Side right Equipment Used strap support Reps/Minutes 30 Comments cued 2 reps and painfree range gentle tension stretch Other Exercises self STMs Other Exercise Name rolling pin quad, HS, ITB, calf; ball wall glut Side right Equipment Used rolling pin, racquetball Reps/Minutes 30 sec Comments good feedback response, cues split stance for jazmine pressure beneficial Gait Training Gait Activity trek poles Description trialed for use trail walking with women's walking group support uneven grd Device Used B trek poles Level of Assistance I Surface level Distance/Duration around clinic gym, 2 laps in hallway Treatment Focus proper height, patterning 2 pt gait Comments at times gets out of sync, ed for reasoning opp UE support with LE, awareness of NOÉ and advancing trek poles in time, improved by end of tx. WIll revisit future appt over uneven incline/decline and stepping over items as roots on trails. Manual Therapy Treatment Taping K taping Body Location R lat patella Treatment Focus medial glide patella, stabilization support Type of Tape Kinesio Tape Skin Inspection normal/intact Comments C tib plateau> mid/distal quad. No adverse affects, seemed to support painfree knee. Understood adverse affects: itching/redness/ tingling to remove, otherwise start couple hrs/days then remove/can be worn in shower, careful remove. PT-OP-T Assessment and Plan Start: 04/27/23 10:59 Freq: Status: Active Protocol: Document 05/28/23 09:01 SP (Rec: 05/28/23 09:53 SP [id number]) Physical Therapy Assessment Goals activity Short Term Goal (STG) Pt will be able to sleep w/o inc pain in R knee or hip STG Duration 07/02/23 Care Home Goal (LTG) Pt will be able go for walks and hikes w/o pain that day or the next day greater than 2/ 10. LTG Duration 08/03/23 LEFS Impairment 48/80 Short Term Goal (STG) Pt will show improved functional ability by improved score of LEFS to at least 53/ 80 STG Duration 07/02/23 Senior Nuclear Medicine Technologist Goal (LTG) Pt will show improved functional ability by improved score of LEFS to at least 60/ 80 LTG Duration 08/03/23 strength Short Term Goal (STG) Pt will be indep w/HEP STG Duration 07/02/23 Senior Nuclear Medicine Technologist Goal (LTG) Pt will score at least 4+/5 on BLE MMT w/o inc pain and at least 3/5 on LPM into all planes to shwo improved stability to allow pt to cont active lifestyle w/o inc pain. LTG Duration 08/03/23 balance Impairment SLS 5 sec R; 8 sec L Short Term Goal (STG) Pt will improve SLS to at least 10 sec B STG Duration 07/02/23 Care Home Goal (LTG) Pt will improve SLS to at least 15 sec B LTG Duration 08/03/23 Assessment Summary Assessment Pt good tolerance LE strengthening shuttle recovery , cues for knee alignment and heel drive for quad/glut/hip abd strengthening balanced support. Good feedback review for self flexibililty support : STMs ball wall glut and rolling pin for self care besides stretching, painfree and felt lessen tight areas. Will continue to progress strength and balance to support knee stability and reduction pain for return to trail hiking with friends. Physical Therapy Plan Frequency and Duration Frequency of Treatment 1-2x/wk Duration of treatment (weeks) 12 Plan of Care Start Date 05/11/23 Plan of Care End Date 08/03/23 Therapeutic Interventions Therapeutic Interventions Balance Training,Gait Training ,Home Exercise Program,Joint Mobilizations,Manual Therapy, Neuromuscular Re-education, Orthotic/Prosthetic Management ,Patient/Caregiver Education, Self-Care/Home Management,Soft Tissue Mobilization,Taping, Therapeutic Activities, Therapeutic Exercises Modalities Cold Pack/Ice Massage,Electric Stimulation,Hot Packs, Infrared Therapy,Ultrasound Next Visit Focus/Plan Next Note Type Treatment Note Next Visit Plan review HEP: sit to stands; SL Assess response to last treatment (shuttle balance). heel raises, SLS, sidesteps, standing hip ext, clamshells manual to R glutes and joint mobs to hip to improve RLE tracking
--- NOTE | 2023-06-08 09:49 | PT.OTN ---
Current Diagnoses Pain in right hip (06/08/23) Pain in right knee (06/08/23) Muscle weakness (generalized) (06/08/23) Difficulty in walking, not elsewhere classified (06/08/23) Abnormal posture (06/08/23) Physical Therapy Treatment Note PT-OP-A Visit Information Start: 04/27/23 10:59 Freq: Status: Active Protocol: Document 06/08/23 07:31 [facility] (Rec: 06/08/23 09:49 [facility] [id number]) Out-Patient Physical Therapy Visit Information Visit Information Visit Type Treatment Note Visit Note 11/09 Visit Start Time 09:02 Visit Stop Time 09:45 Visit Number 7 Number of EFFICIENCY ANALYST Visits 0 PT-OP-B Current Condition Start: 04/27/23 10:59 Freq: Status: Active Protocol: Document 05/11/23 08:20 [facility] (Rec: 05/11/23 09:07 [facility] [id number]) Current Condition History of Current Condition Onset Date 6 months ago Current Complaints R knee pain History of Current Condition Pt had R knee pain that her doctor gave her exercsies for about 10 to 12 years ago and it was better. She lost exercises. Its so painful that it wakes her at night. IT feels ok whens he goes to bed. It gets sore when she sits or stands a lot. She has been trying to go to [email or web address] but soem of the exercises bother her. She likes to garden on her knees. Pt tries to go for a walk everday [place] thinks that helps. [place] is harder than downhill. She is in a hiking group and it feels ok while hiking but she pays for it the next day. Denies swelling. Pt notes she feels like she has to lose weight. She is limiting most things. She takes ibuprofen when she hikes or after or when she needs and it helps. Does have problems in past w/ plantar fascitis and has store bought insoles and is particular w/ shoes. Pt notes buttocks pain that happens when the knee gets pretty back. Once in a while she gets back painb ut notes she tends to lift things that she should not like a wheel [place]. Treatment Goals Patient/Caregiver Goals be able to garden when it is time, be able to do walks w/o pain, be able to do exercises at home and gym w/o pain PT-OP-C Subjective Start: 04/27/23 10:59 Freq: Status: Active Protocol: Document 06/08/23 07:31 [facility] (Rec: 06/08/23 09:49 [facility] [id number]) OP-PT Subjective Patient Comments Patient Comments Pt reports she was gardening this weekend. She was kneeling on pad whcih felt okay but up and down inc pain. Notes use of shovel inc pain. Does not feel like tape helped and it came off pretty early. Notes is sleeping a little better. pt notes she fell sat when reaching up and hit her head slihtly but has felt fine since Patient Reported Progress Improving PT-OP-D Balance Start: 04/27/23 10:59 Freq: Status: Active Protocol: Document 05/11/23 08:20 [facility] (Rec: 05/11/23 09:07 [facility] [id number]) Balance Tests Single Limb Standing Single Limb- Right 5 sec Single Limb- Left 8 sec PT-OP-F Manual Assessment Start: 04/27/23 10:59 Freq: Status: Active Protocol: Document 05/11/23 08:20 [facility] (Rec: 05/11/23 09:07 [facility] [id number]) Manual Assessments Joint Mobility Assessment Joint Mobility Assessment IR B femur and IR w/ squat; LLE turned out PT-OP-G Mobility & Gait Start: 04/27/23 10:59 Freq: Status: Active Protocol: Document 05/11/23 08:20 [facility] (Rec: 05/11/23 09:07 [facility] [id number]) OP Gait Assessment Comments Gait Comments comes down hard on RLE and has dec RLE stance time and dec push off PT-OP-K Range of Motion Start: 04/27/23 10:59 Freq: Status: Active Protocol: Document 05/11/23 08:20 [facility] (Rec: 05/11/23 09:07 [facility] [id number]) Knee Goniometric Range of Motion Knee Right Flexion Active (degrees) 114 Extension Active (degrees) 4 Comments ant strain w/ext & pull in HS w/flex Left Flexion Active (degrees) 124 Extension Active (degrees) 2 PT-OP-L Special Tests Start: 04/27/23 10:59 Freq: Status: Active Protocol: Document 05/11/23 08:20 [facility] (Rec: 05/11/23 09:07 [facility] [id number]) Special Tests Knee Special Tests Calvin Test Test Results neg but pt guards Thessaly Test 5 Degrees Test Results positive Apley's Compression Test Results neg PT-OP-M Strength Start: 04/27/23 10:59 Freq: Status: Active Protocol: Document 05/11/23 08:20 [facility] (Rec: 05/11/23 09:07 [facility] [id number]) Hip Strength Hip Manual Muscle Testing Right Flexion (L2) 4 Good Extension (S1) 3+ Fair+ Abduction 3 Fair Adduction 3+ Fair+ External Rotation 4- Good- Internal Rotation 3 Fair Left Flexion (L2) 5 Normal Extension (S1) 3+ Fair+ Abduction 3+ Fair+ Adduction 4 Good External Rotation 4 Good Internal Rotation 4+ Good+ Knee Strength Knee Manual Muscle Testing Right Flexion (S2) 5 Normal Extension (L3) 5 Normal Left Flexion (S2) 5 Normal Extension (L3) 5 Normal Ankle/Foot Strength Ankle and Foot Manual Muscle Testing Right Dorsiflexion (L4) 5 Normal Plantarflexion (S1) 5 Normal Left Dorsiflexion (L4) 5 Normal Plantarflexion (S1) 5 Normal Comments 20 heel raises B PT-OP-Q Treatments Start: 04/27/23 10:59 Freq: Status: Active Protocol: Document 06/08/23 07:31 [facility] (Rec: 06/08/23 09:49 [facility] [id number]) Gym Equipment Shuttle Recovery unilateral squat Details knee alignment see inside ankle Resistance 37# dark navy Reps/Time x15 B bilateral squat Details knee alignment- lateral midline Resistance 87# Reps/Time 10 Shuttle Balance Red clips Details balancing and wt shifts ea Comments fwd: WBOS, NBOS, Stride stance side: WBOS Gait Training Gait Activity trek poles Device Used single trekking pole Comments 250ft working on trek pole in L hand and coordinating w/RLE Neuro Re-Education Treatment Balance Activities foam Surface blue foam Comments WBOS and NBOS w/vertical and horizontal head turns PT-OP-T Assessment and Plan Start: 04/27/23 10:59 Freq: Status: Active Protocol: Document 06/08/23 07:31 [facility] (Rec: 06/08/23 09:49 [facility] [id number]) Physical Therapy Assessment Goals activity Short Term Goal (STG) Pt will be able to sleep w/o inc pain in R knee or hip STG Duration 07/02/23 [employer] Goal (LTG) Pt will be able go for walks and hikes w/o pain that day or the next day greater than 2/ 10. LTG Duration 08/03/23 LEFS Impairment 48/80 Short Term Goal (STG) Pt will show improved functional ability by improved score of LEFS to at least 53/ 80 STG Duration 07/02/23 Skilled Nursing Goal (LTG) Pt will show improved functional ability by improved score of LEFS to at least 60/ 80 LTG Duration 08/03/23 strength Short Term Goal (STG) Pt will be indep w/HEP STG Duration 07/02/23 Skilled Nursing Goal (LTG) Pt will score at least 4+/5 on BLE MMT w/o inc pain and at least 3/5 on LPM into all planes to shwo improved stability to allow pt to cont active lifestyle w/o inc pain. LTG Duration 08/03/23 balance Impairment SLS 5 sec R; 8 sec L Short Term Goal (STG) Pt will improve SLS to at least 10 sec B STG Duration 07/02/23 Skilled Nursing Goal (LTG) Pt will improve SLS to at least 15 sec B LTG Duration 08/03/23 Assessment Summary Assessment Pt had imrpoved ER w/manual treatment today. She struggled w/coordinating the trekking pole and was encouraged to try thi in her [place] before outside Physical Therapy Plan Frequency and Duration Frequency of Treatment 1-2x/wk Duration of treatment (weeks) 12 Plan of Care Start Date 05/11/23 Plan of Care End Date 08/03/23 Next Visit Focus/Plan Next Note Type Treatment Note Next Visit Plan try hip add/abd machine (go over form for gym); work on hip mobility and thigh soft tissue for mobility, work on balance activtieis and hip strength
--- NOTE | 2023-06-10 11:21 | PT.OTN ---
Current Diagnoses Pain in right hip (06/10/23) Pain in right knee (06/10/23) Muscle weakness (generalized) (06/10/23) Difficulty in walking, not elsewhere classified (06/10/23) Abnormal posture (06/10/23) Physical Therapy Treatment Note PT-OP-A Visit Information Start: 04/27/23 10:59 Freq: Status: Active Protocol: Document 06/10/23 10:31 [facility] (Rec: 06/10/23 10:51 [facility] [id number]) Out-Patient Physical Therapy Visit Information Visit Information Visit Type Progress Note Visit Note 05/12 Visit Start Time 10:32 Visit Stop Time 11:15 Visit Number 8 Number of PHARMACY INTAKE COORDINATOR Visits 0 PT-OP-B Current Condition Start: 04/27/23 10:59 Freq: Status: Active Protocol: Document 05/11/23 08:20 [facility] (Rec: 05/11/23 09:07 [facility] [id number]) Current Condition History of Current Condition Onset Date 6 months ago Current Complaints R knee pain History of Current Condition Pt had R knee pain that her doctor gave her exercsies for about 10 to 12 years ago and it was better. She lost exercises. Its so painful that it wakes her at night. IT feels ok whens he goes to bed. It gets sore when she sits or stands a lot. She has been trying to go to [employer] but soem of the exercises bother her. She likes to garden on her knees. Pt tries to go for a walk everday [place] thinks that helps. [place] is harder than downhill. She is in a hiking group and it feels ok while hiking but she pays for it the next day. Denies swelling. Pt notes she feels like she has to lose weight. She is limiting most things. She takes ibuprofen when she hikes or after or when she needs and it helps. Does have problems in past w/ plantar fascitis and has store bought insoles and is particular w/ shoes. Pt notes buttocks pain that happens when the knee gets pretty back. Once in a while she gets back painb ut notes she tends to lift things that she should not like a wheel knik. Treatment Goals Patient/Caregiver Goals be able to garden when it is time, be able to do walks w/o pain, be able to do exercises at home and gym w/o pain PT-OP-C Subjective Start: 04/27/23 10:59 Freq: Status: Active Protocol: Document 06/10/23 10:31 [facility] (Rec: 06/10/23 10:51 [facility] [id number]) OP-PT Subjective Patient Comments Patient Comments Pt reports she felt really good the day of and the day after last session. She woke up sore today. walked but that didn't inc pain. PT-OP-D Balance Start: 04/27/23 10:59 Freq: Status: Active Protocol: Document 05/11/23 08:20 [facility] (Rec: 05/11/23 09:07 [facility] [id number]) Balance Tests Single Limb Standing Single Limb- Right 5 sec Single Limb- Left 8 sec PT-OP-F Manual Assessment Start: 04/27/23 10:59 Freq: Status: Active Protocol: Document 05/11/23 08:20 [facility] (Rec: 05/11/23 09:07 [facility] [id number]) Manual Assessments Joint Mobility Assessment Joint Mobility Assessment IR B femur and IR w/ squat; LLE turned out PT-OP-G Mobility & Gait Start: 04/27/23 10:59 Freq: Status: Active Protocol: Document 05/11/23 08:20 [facility] (Rec: 05/11/23 09:07 [facility] [id number]) OP Gait Assessment Comments Gait Comments comes down hard on RLE and has dec RLE stance time and dec push off PT-OP-J Posture/Palpation/Skin Start: 04/27/23 10:59 Freq: Status: Active Protocol: Document 06/10/23 10:31 [facility] (Rec: 06/10/23 10:57 [facility] [id number]) Posture Evaluation Janna Postural Classification System Lumbar Protective Mechanism Left AP 1 Lumbar Protective Mechanism Right AP 0 Lumbar Protective Mechanism Left PA 2 Lumbar Protective Mechanism Right PA 2 PT-OP-K Range of Motion Start: 04/27/23 10:59 Freq: Status: Active Protocol: Document 05/11/23 08:20 [facility] (Rec: 05/11/23 09:07 [facility] [id number]) Knee Goniometric Range of Motion Knee Right Flexion Active (degrees) 114 Extension Active (degrees) 4 Comments ant strain w/ext & pull in HS w/flex Left Flexion Active (degrees) 124 Extension Active (degrees) 2 PT-OP-L Special Tests Start: 04/27/23 10:59 Freq: Status: Active Protocol: Document 05/11/23 08:20 [facility] (Rec: 05/11/23 09:07 [facility] [id number]) Special Tests Knee Special Tests Calvin Test Test Results neg but pt guards Thessaly Test 5 Degrees Test Results positive Apley's Compression Test Results neg PT-OP-M Strength Start: 04/27/23 10:59 Freq: Status: Active Protocol: Document 06/10/23 10:31 [facility] (Rec: 06/10/23 10:57 [facility] [id number]) Hip Strength Hip Manual Muscle Testing Right Flexion (L2) 4 Good Extension (S1) 3+ Fair+ Abduction 3+ Fair+ Adduction 3+ Fair+ External Rotation 4+ Good+ Internal Rotation 4 Good Comments pain in knee w/hip flex & abd & ext Left Flexion (L2) 5 Normal Extension (S1) 3+ Fair+ Abduction 4- Good- Adduction 4+ Good+ External Rotation 5 Normal Internal Rotation 5 Normal Knee Strength Knee Manual Muscle Testing Right Flexion (S2) 5 Normal Extension (L3) 5 Normal Left Flexion (S2) 5 Normal Extension (L3) 5 Normal Ankle/Foot Strength Ankle and Foot Manual Muscle Testing Right Dorsiflexion (L4) 5 Normal Plantarflexion (S1) 5 Normal Inversion 5 Normal Eversion (S1) 5 Normal Left Dorsiflexion (L4) 5 Normal Plantarflexion (S1) 5 Normal Inversion 5 Normal Eversion (S1) 5 Normal Comments 20 heel raises B PT-OP-Q Treatments Start: 04/27/23 10:59 Freq: Status: Active Protocol: Document 06/10/23 10:31 [facility] (Rec: 06/10/23 10:51 [facility] [id number]) Gym Equipment Cable Column (Body Solid) Hip Abduction Details stopped d/t lat lowre leg pain Resistance 3 Reps/Time 8 Hip Adduction Resistance 3 Reps/Time 15 Shuttle Recovery unilateral squat Details knee alignment see inside ankle Resistance 37# dark navy Reps/Time 20 B bilateral squat Details knee alignment- lateral midline Resistance 87# Reps/Time 20 Manual Therapy Treatment Soft Tissue Mobilization lat hip Body Location R ITB, TLF, lat glutes Mobilization Type Rolling Body Position Hooklying Comments w/ER piriformis Body Location R Mobilization Type Sustained Pressure Intensity/Depth Moderate Body Position Sidelying Comments w/hip IR Add Body Location R Mobilization Type Sustained Pressure Intensity/Depth Moderate Body Position Supine Comments w/hip ER Joint Mobilizations hip Comments R hip free the ball IR and ER, inf glide FM and med glide FM PT-OP-T Assessment and Plan Start: 04/27/23 10:59 Freq: Status: Active Protocol: Document 06/10/23 10:31 [facility] (Rec: 06/10/23 10:51 [facility] [id number]) Physical Therapy Assessment Goals activity Short Term Goal (STG) Pt will be able to sleep w/o inc pain in R knee or hip 06/10-reports sleeping better through the night but wakes up to go to the bathroom (normal amt of times)-pain when she wakes but less STG Duration 07/02/23 Agency Appointments Supervisor Goal (LTG) Pt will be able go for walks and hikes w/o pain that day or the next day greater than 2/ 10. 28-has been getting in 2-3 walks a day still having pain some after. LTG Duration 08/03/23 LEFS Impairment 48/80 Short Term Goal (STG) Pt will show improved functional ability by improved score of LEFS to at least 53/ 80 06/10-n/t STG Duration 07/02/23 Senior Care Goal (LTG) Pt will show improved functional ability by improved score of LEFS to at least 60/ 80 LTG Duration 08/03/23 strength Short Term Goal (STG) Pt will be indep w/HEP STG Duration achieved advancing as able Senior Care Goal (LTG) Pt will score at least 4+/5 on BLE MMT w/o inc pain and at least 3/5 on LPM into all planes to shwo improved stability to allow pt to cont active lifestyle w/o inc pain. 2.8-improving LTG Duration 08/03/23 balance Impairment SLS 5 sec R; 8 sec L Short Term Goal (STG) Pt will improve SLS to at least 10 sec B 06/10-8 sec R ; 12 sec L - achieved L improving R STG Duration 07/02/23 Senior Care Goal (LTG) Pt will improve SLS to at least 15 sec B LTG Duration 08/03/23 Assessment Summary Assessment Pt had [facility] improved hip mobility after manual care. She tolerated leg press better w/improved ability to do resistance with inc reps. She is improving w/strength and balance and showing dec pain w /inc return to walking. She would benefit fro cont PT to work on deficits including hip mobility and strength as it appears like pain may be radicular in nature as all activities that inc knee pain are w/resistance or motions w/ hip. Physical Therapy Plan Frequency and Duration Frequency of Treatment 1-2x/wk Duration of treatment (weeks) 12 Plan of Care Start Date 05/11/23 Plan of Care End Date 08/03/23 Therapeutic Interventions Therapeutic Interventions Balance Training,Gait Training ,Home Exercise Program,Joint Mobilizations,Manual Therapy, Neuromuscular Re-education, Orthotic/Prosthetic Management ,Patient/Caregiver Education, Self-Care/Home Management,Soft Tissue Mobilization,Taping, Therapeutic Activities, Therapeutic Exercises Modalities Cold Pack/Ice Massage,Electric Stimulation,Hot Packs, Infrared Therapy,Ultrasound Next Visit Focus/Plan Next Note Type Treatment Note Next Visit Plan work on hip mobility and thigh soft tissue for mobility, work on balance activtieis and hip strength & hip flexibility
--- NOTE | 2023-06-29 10:38 | PT.OTN ---
Current Diagnoses Pain in right hip (06/29/23) Pain in right knee (06/29/23) Muscle weakness (generalized) (06/29/23) Difficulty in walking, not elsewhere classified (06/29/23) Abnormal posture (06/29/23) Physical Therapy Treatment Note PT-OP-A Visit Information Start: 04/27/23 10:59 Freq: Status: Active Protocol: Document 06/29/23 09:53 [facility] (Rec: 06/29/23 10:38 [facility] [id number]) Out-Patient Physical Therapy Visit Information Visit Information Visit Type Treatment Note Visit Note 08/10 Visit Start Time 09:53 Visit Stop Time 10:31 Visit Number 11 Number of MAILMASTER Visits 0 PT-OP-B Current Condition Start: 04/27/23 10:59 Freq: Status: Active Protocol: Document 05/11/23 08:20 [facility] (Rec: 05/11/23 09:07 [facility] [id number]) Current Condition History of Current Condition Onset Date 6 months ago Current Complaints R knee pain History of Current Condition Pt had R knee pain that her doctor gave her exercsies for about 10 to 12 years ago and it was better. She lost exercises. Its so painful that it wakes her at night. IT feels ok whens he goes to bed. It gets sore when she sits or stands a lot. She has been trying to go to [place] but soem of the exercises bother her. She likes to garden on her knees. Pt tries to go for a walk everday [place] thinks that helps. [place] is harder than downhill. She is in a hiking group and it feels ok while hiking but she pays for it the next day. Denies swelling. Pt notes she feels like she has to lose weight. She is limiting most things. She takes ibuprofen when she hikes or after or when she needs and it helps. Does have problems in past w/ plantar fascitis and has store bought insoles and is particular w/ shoes. Pt notes buttocks pain that happens when the knee gets pretty back. Once in a while she gets back painb ut notes she tends to lift things that she should not like a wheel [place]. Treatment Goals Patient/Caregiver Goals be able to garden when it is time, be able to do walks w/o pain, be able to do exercises at home and gym w/o pain PT-OP-C Subjective Start: 04/27/23 10:59 Freq: Status: Active Protocol: Document 06/29/23 09:53 [facility] (Rec: 06/29/23 10:38 [facility] [id number]) OP-PT Subjective Patient Comments Patient Comments Pt reports she is noticing it is more her hip that is causing problems and her knee is better oerall. She notices every now and then. Her R SI area feels okay. Patient Reported Progress Improving PT-OP-D Balance Start: 04/27/23 10:59 Freq: Status: Active Protocol: Document 05/11/23 08:20 [facility] (Rec: 05/11/23 09:07 [facility] [id number]) Balance Tests Single Limb Standing Single Limb- Right 5 sec Single Limb- Left 8 sec PT-OP-F Manual Assessment Start: 04/27/23 10:59 Freq: Status: Active Protocol: Document 05/11/23 08:20 [facility] (Rec: 05/11/23 09:07 [facility] [id number]) Manual Assessments Joint Mobility Assessment Joint Mobility Assessment IR B femur and IR w/ squat; LLE turned out PT-OP-G Mobility & Gait Start: 04/27/23 10:59 Freq: Status: Active Protocol: Document 05/11/23 08:20 [facility] (Rec: 05/11/23 09:07 [facility] [id number]) OP Gait Assessment Comments Gait Comments comes down hard on RLE and has dec RLE stance time and dec push off PT-OP-J Posture/Palpation/Skin Start: 04/27/23 10:59 Freq: Status: Active Protocol: Document 06/10/23 10:31 [facility] (Rec: 06/10/23 10:57 [facility] [id number]) Posture Evaluation Janna Postural Classification System Lumbar Protective Mechanism Left AP 1 Lumbar Protective Mechanism Right AP 0 Lumbar Protective Mechanism Left PA 2 Lumbar Protective Mechanism Right PA 2 PT-OP-K Range of Motion Start: 04/27/23 10:59 Freq: Status: Active Protocol: Document 05/11/23 08:20 [facility] (Rec: 05/11/23 09:07 [facility] [id number]) Knee Goniometric Range of Motion Knee Right Flexion Active (degrees) 114 Extension Active (degrees) 4 Comments ant strain w/ext & pull in HS w/flex Left Flexion Active (degrees) 124 Extension Active (degrees) 2 PT-OP-L Special Tests Start: 04/27/23 10:59 Freq: Status: Active Protocol: Document 05/11/23 08:20 [facility] (Rec: 05/11/23 09:07 [facility] [id number]) Special Tests Knee Special Tests Calvin Test Test Results neg but pt guards Thessaly Test 5 Degrees Test Results positive Apley's Compression Test Results neg PT-OP-M Strength Start: 04/27/23 10:59 Freq: Status: Active Protocol: Document 06/10/23 10:31 [facility] (Rec: 06/10/23 10:57 [facility] [id number]) Hip Strength Hip Manual Muscle Testing Right Flexion (L2) 4 Good Extension (S1) 3+ Fair+ Abduction 3+ Fair+ Adduction 3+ Fair+ External Rotation 4+ Good+ Internal Rotation 4 Good Comments pain in knee w/hip flex & abd & ext Left Flexion (L2) 5 Normal Extension (S1) 3+ Fair+ Abduction 4- Good- Adduction 4+ Good+ External Rotation 5 Normal Internal Rotation 5 Normal Knee Strength Knee Manual Muscle Testing Right Flexion (S2) 5 Normal Extension (L3) 5 Normal Left Flexion (S2) 5 Normal Extension (L3) 5 Normal Ankle/Foot Strength Ankle and Foot Manual Muscle Testing Right Dorsiflexion (L4) 5 Normal Plantarflexion (S1) 5 Normal Inversion 5 Normal Eversion (S1) 5 Normal Left Dorsiflexion (L4) 5 Normal Plantarflexion (S1) 5 Normal Inversion 5 Normal Eversion (S1) 5 Normal Comments 20 heel raises B PT-OP-Q Treatments Start: 04/27/23 10:59 Freq: Status: Active Protocol: Document 06/29/23 09:53 [facility] (Rec: 06/29/23 10:38 [facility] [id number]) Gym Equipment Shuttle Recovery unilateral squat Details knee alignment see inside ankle Resistance 50# dark navy Reps/Time 2x10 reps B bilateral squat Details knee alignment- lateral midline Resistance 100# (dark navy) Reps/Time 20 Therapeutic Exercises Standing Exercises hip hikes Standing Exercise Name 1. on step w/rail 2. on ground w/rail Side bilateral Reps/Minutes 10 ea SLS Standing Exercise Name in mirror w/focus on hip under her Side bilateral heel raises Standing Exercise Name SL Side bilateral Equipment Used handrail Reps/Minutes 10 Comments cues for hip position Other Exercises self STMs Other Exercise Name tennis ball roll out glute Side right Reps/Minutes 2 min Manual Therapy Treatment Soft Tissue Mobilization piriformis Body Location R & glute Mobilization Type Sustained Pressure Intensity/Depth Moderate Body Position Prone Comments w/hip IR Joint Mobilizations innominate Joint R caudal, ER FM sacrum Joint caudal R FM hip Joint R hip on axis ER and iR and inf FM Comments manual faciliationa tend range ROtations PT-OP-T Assessment and Plan Start: 04/27/23 10:59 Freq: Status: Active Protocol: Document 06/29/23 09:53 [facility] (Rec: 06/29/23 10:38 [facility] [id number]) Physical Therapy Assessment Goals activity Short Term Goal (STG) Pt will be able to sleep w/o inc pain in R knee or hip 06/10-reports sleeping better through the night but wakes up to go to the bathroom (normal amt of times)-pain when she wakes but less 06/22/23 - depends on how much activity at home STG Duration 07/02/23 Dental Instrument Maker Goal (LTG) Pt will be able go for walks and hikes w/o pain that day or the next day greater than 2/ 10. 06/10-has been getting in 2-3 walks a day still having pain some after. 06/22/23 - went for 5mi hike with 0/10 pain that day or the next. LTG Duration 08/03/23 - Goal met 06/22/23 LEFS Impairment 48/80 Short Term Goal (STG) Pt will show improved functional ability by improved score of LEFS to at least 53/ 80 06/10-n/t STG Duration 07/02/23 Jail Goal (LTG) Pt will show improved functional ability by improved score of LEFS to at least 60/ 80 LTG Duration 08/03/23 strength Short Term Goal (STG) Pt will be indep w/HEP STG Duration achieved advancing as able Dental Instrument Maker Goal (LTG) Pt will score at least 4+/5 on BLE MMT w/o inc pain and at least 3/5 on LPM into all planes to shwo improved stability to allow pt to cont active lifestyle w/o inc pain. 2.8-improving LTG Duration 08/03/23 balance Impairment SLS 5 sec R; 8 sec L Short Term Goal (STG) Pt will improve SLS to at least 10 sec B 06/10-8 sec R ; 12 sec L - achieved L improving R 06/15/23: 18s R, 10s L STG Duration 07/02/23 Jail Goal (LTG) Pt will improve SLS to at least 15 sec B LTG Duration 08/03/23 Assessment Summary Assessment dec hip pain when doing SL heel raises and SL balance when working on these activities. Needs cues and use of mirror for this. Improved hip ER, IR and flex after manual treament Physical Therapy Plan Frequency and Duration Frequency of Treatment 1-2x/wk Duration of treatment (weeks) 12 Plan of Care Start Date 05/11/23 Plan of Care End Date 08/03/23 Next Visit Focus/Plan Next Note Type Treatment Note Next Visit Plan focus on hip abd engagement R & core work. focus on getting post dep R & work on pelvis and hip mobility to achieve this
--- NOTE | 2023-07-06 11:20 | PT.OTN ---
Current Diagnoses Pain in right hip (07/06/23) Pain in right knee (07/06/23) Muscle weakness (generalized) (07/06/23) Difficulty in walking, not elsewhere classified (07/06/23) Abnormal posture (07/06/23) Physical Therapy Treatment Note PT-OP-A Visit Information Start: 04/27/23 10:59 Freq: Status: Active Protocol: Document 07/06/23 10:22 [facility] (Rec: 07/06/23 11:20 [facility] [id number]) Out-Patient Physical Therapy Visit Information Visit Information Visit Type Treatment Note Visit Note 09/09 Visit Start Time 10:30 Visit Stop Time 11:12 Visit Number 12 Number of BLUEPRINT MAKER Visits 0 PT-OP-B Current Condition Start: 04/27/23 10:59 Freq: Status: Active Protocol: Document 05/11/23 08:20 [facility] (Rec: 05/11/23 09:07 [facility] [id number]) Current Condition History of Current Condition Onset Date 6 months ago Current Complaints R knee pain History of Current Condition Pt had R knee pain that her doctor gave her exercsies for about 10 to 12 years ago and it was better. She lost exercises. Its so painful that it wakes her at night. IT feels ok whens he goes to bed. It gets sore when she sits or stands a lot. She has been trying to go to [employer] but soem of the exercises bother her. She likes to garden on her knees. Pt tries to go for a walk everday [place] thinks that helps. [place] is harder than downhill. She is in a hiking group and it feels ok while hiking but she pays for it the next day. Denies swelling. Pt notes she feels like she has to lose weight. She is limiting most things. She takes ibuprofen when she hikes or after or when she needs and it helps. Does have problems in past w/ plantar fascitis and has store bought insoles and is particular w/ shoes. Pt notes buttocks pain that happens when the knee gets pretty back. Once in a while she gets back painb ut notes she tends to lift things that she should not like a wheel [place]. Treatment Goals Patient/Caregiver Goals be able to garden when it is time, be able to do walks w/o pain, be able to do exercises at home and gym w/o pain PT-OP-C Subjective Start: 04/27/23 10:59 Freq: Status: Active Protocol: Document 07/06/23 10:22 [facility] (Rec: 07/06/23 11:20 [facility] [id number]) OP-PT Subjective Patient Comments Patient Comments pt reports she notices in sitting inc hip pain PT-OP-D Balance Start: 04/27/23 10:59 Freq: Status: Active Protocol: Document 05/11/23 08:20 [facility] (Rec: 05/11/23 09:07 [facility] [id number]) Balance Tests Single Limb Standing Single Limb- Right 5 sec Single Limb- Left 8 sec PT-OP-F Manual Assessment Start: 04/27/23 10:59 Freq: Status: Active Protocol: Document 05/11/23 08:20 [facility] (Rec: 05/11/23 09:07 [facility] [id number]) Manual Assessments Joint Mobility Assessment Joint Mobility Assessment IR B femur and IR w/ squat; LLE turned out PT-OP-G Mobility & Gait Start: 04/27/23 10:59 Freq: Status: Active Protocol: Document 05/11/23 08:20 [facility] (Rec: 05/11/23 09:07 [facility] [id number]) OP Gait Assessment Comments Gait Comments comes down hard on RLE and has dec RLE stance time and dec push off PT-OP-J Posture/Palpation/Skin Start: 04/27/23 10:59 Freq: Status: Active Protocol: Document 06/10/23 10:31 [facility] (Rec: 06/10/23 10:57 [facility] [id number]) Posture Evaluation [facility] Postural Classification System Lumbar Protective Mechanism Left AP 1 Lumbar Protective Mechanism Right AP 0 Lumbar Protective Mechanism Left PA 2 Lumbar Protective Mechanism Right PA 2 PT-OP-K Range of Motion Start: 04/27/23 10:59 Freq: Status: Active Protocol: Document 05/11/23 08:20 [facility] (Rec: 05/11/23 09:07 [facility] [id number]) Knee Goniometric Range of Motion Knee Right Flexion Active (degrees) 114 Extension Active (degrees) 4 Comments ant strain w/ext & pull in HS w/flex Left Flexion Active (degrees) 124 Extension Active (degrees) 2 PT-OP-L Special Tests Start: 04/27/23 10:59 Freq: Status: Active Protocol: Document 05/11/23 08:20 [facility] (Rec: 05/11/23 09:07 [facility] [id number]) Special Tests Knee Special Tests Calvin Test Test Results neg but pt guards Thessaly Test 5 Degrees Test Results positive Apley's Compression Test Results neg PT-OP-M Strength Start: 04/27/23 10:59 Freq: Status: Active Protocol: Document 06/10/23 10:31 [facility] (Rec: 06/10/23 10:57 [facility] [id number]) Hip Strength Hip Manual Muscle Testing Right Flexion (L2) 4 Good Extension (S1) 3+ Fair+ Abduction 3+ Fair+ Adduction 3+ Fair+ External Rotation 4+ Good+ Internal Rotation 4 Good Comments pain in knee w/hip flex & abd & ext Left Flexion (L2) 5 Normal Extension (S1) 3+ Fair+ Abduction 4- Good- Adduction 4+ Good+ External Rotation 5 Normal Internal Rotation 5 Normal Knee Strength Knee Manual Muscle Testing Right Flexion (S2) 5 Normal Extension (L3) 5 Normal Left Flexion (S2) 5 Normal Extension (L3) 5 Normal Ankle/Foot Strength Ankle and Foot Manual Muscle Testing Right Dorsiflexion (L4) 5 Normal Plantarflexion (S1) 5 Normal Inversion 5 Normal Eversion (S1) 5 Normal Left Dorsiflexion (L4) 5 Normal Plantarflexion (S1) 5 Normal Inversion 5 Normal Eversion (S1) 5 Normal Comments 20 heel raises B PT-OP-Q Treatments Start: 04/27/23 10:59 Freq: Status: Active Protocol: Document 07/06/23 10:22 [facility] (Rec: 07/06/23 11:20 [facility] [id number]) Therapeutic Exercises Sidelying Exercises basking seal Sidelying Exercise Name drop of LEs off edge Side right Reps/Minutes 10 Standing Exercises hip hikes Standing Exercise Name 1. on step w/rail 2. on ground w/rail Side bilateral Reps/Minutes 10 ea SLS Standing Exercise Name in mirror w/focus on hip under her Side bilateral heel raises Standing Exercise Name SL Side bilateral Equipment Used handrail Reps/Minutes 10 Comments cues for hip position sit to stand Side bilateral Equipment Used L2 band at knees Reps/Minutes 2x10 Comments cues for hip hinge Therapeutic Activity Therapeutic Activity sitting Comments 10 min: working on unsupported sitting and supported sitting height and edu and pt feeling different heights w/ progression to correct height and working on use of external supports as needed Neuro Re-Education Treatment Other Activities faciliation Details R Reps/Duration 2 min Comments traction in seated to RLE for improved wt acceptance RLE PNF Reps/Duration 6 min Comments post dep w/rhythmic initiation progressed to sustained hold to COI of pelvis PT-OP-T Assessment and Plan Start: 04/27/23 10:59 Freq: Status: Active Protocol: Document 07/06/23 10:22 [facility] (Rec: 07/06/23 11:20 [facility] [id number]) Physical Therapy Assessment Goals activity Short Term Goal (STG) Pt will be able to sleep w/o inc pain in R knee or hip 06/10-reports sleeping better through the night but wakes up to go to the bathroom (normal amt of times)-pain when she wakes but less 06/22/23 - depends on how much activity at home STG Duration 07/02/23 [facility] Goal (LTG) Pt will be able go for walks and hikes w/o pain that day or the next day greater than 2/ 10. 06/10-has been getting in 2-3 walks a day still having pain some after. 06/22/23 - went for 5mi hike with 0/10 pain that day or the next. LTG Duration 08/03/23 - Goal met 06/22/23 LEFS Impairment 48/80 Short Term Goal (STG) Pt will show improved functional ability by improved score of LEFS to at least 53/ 80 06/10-n/t STG Duration 07/02/23 [facility] Goal (LTG) Pt will show improved functional ability by improved score of LEFS to at least 60/ 80 LTG Duration 08/03/23 strength Short Term Goal (STG) Pt will be indep w/HEP STG Duration achieved advancing as able Infectious Disease Technician Goal (LTG) Pt will score at least 4+/5 on BLE MMT w/o inc pain and at least 3/5 on LPM into all planes to shwo improved stability to allow pt to cont active lifestyle w/o inc pain. 2.8-improving LTG Duration 08/03/23 balance Impairment SLS 5 sec R; 8 sec L Short Term Goal (STG) Pt will improve SLS to at least 10 sec B /8-8 sec R ; 12 sec L - achieved L improving R 06/15/23: 18s R, 10s L STG Duration 07/02/23 Infectious Disease Technician Goal (LTG) Pt will improve SLS to at least 15 sec B LTG Duration 08/03/23 Assessment Summary Assessment Improved perofrmance of exercises but pt still does require cues w/hip hike exericse but improves w/cues and does fatigue on R. Improved sitting position when educated on height. improved facilitaiton into post dep Physical Therapy Plan Frequency and Duration Frequency of Treatment 1-2x/wk Duration of treatment (weeks) 12 Plan of Care Start Date 05/11/23 Plan of Care End Date 08/03/23 Next Visit Focus/Plan Next Note Type Treatment Note Next Visit Plan focus on hip abd engagement R & core work. focus on getting post dep R & work on pelvis and hip mobility to achieve this
--- NOTE | 2023-07-13 15:18 | PT.OTN ---
Current Diagnoses Pain in right hip (07/13/23) Pain in right knee (07/13/23) Muscle weakness (generalized) (07/13/23) Difficulty in walking, not elsewhere classified (07/13/23) Abnormal posture (07/13/23) Physical Therapy Treatment Note PT-OP-A Visit Information Start: 04/27/23 10:59 Freq: Status: Active Protocol: Document 07/13/23 13:55 [facility] (Rec: 07/13/23 15:18 [facility] [id number]) Out-Patient Physical Therapy Visit Information Visit Information Visit Type Treatment Note Visit Note 10/10 Visit Start Time 13:52 Visit Stop Time 14:35 Visit Number 13 Number of SIGNALS COLLECTION TECHNICIAN Visits 1 PT-OP-B Current Condition Start: 04/27/23 10:59 Freq: Status: Active Protocol: Document 05/11/23 08:20 [facility] (Rec: 05/11/23 09:07 [facility] [id number]) Current Condition History of Current Condition Onset Date 6 months ago Current Complaints R knee pain History of Current Condition Pt had R knee pain that her doctor gave her exercsies for about 10 to 12 years ago and it was better. She lost exercises. Its so painful that it wakes her at night. IT feels ok whens he goes to bed. It gets sore when she sits or stands a lot. She has been trying to go to [employer] but soem of the exercises bother her. She likes to garden on her knees. Pt tries to go for a walk [place]day [place] thinks that helps. [place] is harder than downhill. She is in a hiking group and it feels ok while hiking but she pays for it the next day. Denies swelling. Pt notes she feels like she has to lose weight. She is limiting most things. She takes ibuprofen when she hikes or after or when she needs and it helps. Does have problems in past w/ plantar fascitis and has store bought insoles and is particular w/ shoes. Pt notes buttocks pain that happens when the knee gets pretty back. Once in a while she gets back painb ut notes she tends to lift things that she should not like a wheel [id number]. Treatment Goals Patient/Caregiver Goals be able to garden when it is time, be able to do walks w/o pain, be able to do exercises at home and gym w/o pain PT-OP-C Subjective Start: 04/27/23 10:59 Freq: Status: Active Protocol: Document 07/13/23 13:55 [facility] (Rec: 07/13/23 15:18 [facility] [id number]) OP-PT Subjective Patient Comments Patient Comments Ruthann reports the balance is the hardest part now. The parts are working now. She's not sure if she's doing the basking seal ex correctly. PT-OP-D Balance Start: 04/27/23 10:59 Freq: Status: Active Protocol: Document 05/11/23 08:20 [facility] (Rec: 05/11/23 09:07 [facility] [id number]) Balance Tests Single Limb Standing Single Limb- Right 5 sec Single Limb- Left 8 sec PT-OP-F Manual Assessment Start: 04/27/23 10:59 Freq: Status: Active Protocol: Document 05/11/23 08:20 [facility] (Rec: 05/11/23 09:07 [facility] [id number]) Manual Assessments Joint Mobility Assessment Joint Mobility Assessment IR B femur and IR w/ squat; LLE turned out PT-OP-G Mobility & Gait Start: 04/27/23 10:59 Freq: Status: Active Protocol: Document 05/11/23 08:20 [facility] (Rec: 05/11/23 09:07 [facility] [id number]) OP Gait Assessment Comments Gait Comments comes down hard on RLE and has dec RLE stance time and dec push off PT-OP-J Posture/Palpation/Skin Start: 04/27/23 10:59 Freq: Status: Active Protocol: Document 06/10/23 10:31 [facility] (Rec: 06/10/23 10:57 [facility] [id number]) Posture Evaluation [facility] Postural Classification System Lumbar Protective Mechanism Left AP 1 Lumbar Protective Mechanism Right AP 0 Lumbar Protective Mechanism Left PA 2 Lumbar Protective Mechanism Right PA 2 PT-OP-K Range of Motion Start: 04/27/23 10:59 Freq: Status: Active Protocol: Document 05/11/23 08:20 [facility] (Rec: 05/11/23 09:07 [facility] [id number]) Knee Goniometric Range of Motion Knee Right Flexion Active (degrees) 114 Extension Active (degrees) 4 Comments ant strain w/ext & pull in HS w/flex Left Flexion Active (degrees) 124 Extension Active (degrees) 2 PT-OP-L Special Tests Start: 04/27/23 10:59 Freq: Status: Active Protocol: Document 05/11/23 08:20 [facility] (Rec: 05/11/23 09:07 [facility] [id number]) Special Tests Knee Special Tests Calvin Test Test Results neg but pt guards Thessaly Test 5 Degrees Test Results positive Apley's Compression Test Results neg PT-OP-M Strength Start: 04/27/23 10:59 Freq: Status: Active Protocol: Document 06/10/23 10:31 [facility] (Rec: 06/10/23 10:57 [facility] [id number]) Hip Strength Hip Manual Muscle Testing Right Flexion (L2) 4 Good Extension (S1) 3+ Fair+ Abduction 3+ Fair+ Adduction 3+ Fair+ External Rotation 4+ Good+ Internal Rotation 4 Good Comments pain in knee w/hip flex & abd & ext Left Flexion (L2) 5 Normal Extension (S1) 3+ Fair+ Abduction 4- Good- Adduction 4+ Good+ External Rotation 5 Normal Internal Rotation 5 Normal Knee Strength Knee Manual Muscle Testing Right Flexion (S2) 5 Normal Extension (L3) 5 Normal Left Flexion (S2) 5 Normal Extension (L3) 5 Normal Ankle/Foot Strength Ankle and Foot Manual Muscle Testing Right Dorsiflexion (L4) 5 Normal Plantarflexion (S1) 5 Normal Inversion 5 Normal Eversion (S1) 5 Normal Left Dorsiflexion (L4) 5 Normal Plantarflexion (S1) 5 Normal Inversion 5 Normal Eversion (S1) 5 Normal Comments 20 heel raises B PT-OP-Q Treatments Start: 04/27/23 10:59 Freq: Status: Active Protocol: Document 07/13/23 13:55 [facility] (Rec: 07/13/23 15:18 [facility] [id number]) Gym Equipment Shuttle Balance Red clips Details balancing and wt shifts ea Comments fwd: WBOS, NBOS, Stride stance B side: WBOS (vc to increase weightbearing in LLE) 1.hold board still 2. weight shifting >w/ eccentric control 3. balloon volleyball w/ aide - Funmilayo>modA for balance recovery w/ repeated LOB to R in m/l Therapeutic Exercises Supine Exercises Core Supine Exercise Name 1.TrA >w/PPT >w/breathing focus >BKFO Side bilateral Equipment Used i/s in self-monitoring TrA medial to ASIS Reps/Minutes 10' Comments improved self-awareness and TrA activation w/ decreased breathholding Sidelying Exercises basking seal Sidelying Exercise Name drop of LEs off edge Side bilateral Reps/Minutes 10 Comments cues for both legs bent, move together Sitting Exercises TrA Sitting Exercise Name Tall sitting focus w/ TrA activation Equipment Used Pt i/s in self-monitoring TrA medial to ASIS Reps/Minutes 3' Comments Improved control of TrA activation Standing Exercises hip hikes Standing Exercise Name 1. on step w/rail Side bilateral Reps/Minutes 2x10 ea Comments cues for form. SLS Standing Exercise Name in mirror w/focus on hip under her Side bilateral PT-OP-T Assessment and Plan Start: 04/27/23 10:59 Freq: Status: Active Protocol: Document 07/13/23 13:55 [facility] (Rec: 07/13/23 15:18 [facility] [id number]) Physical Therapy Assessment Goals activity Short Term Goal (STG) Pt will be able to sleep w/o inc pain in R knee or hip 06/10-reports sleeping better through the night but wakes up to go to the bathroom (normal amt of times)-pain when she wakes but less 06/22/23 - depends on how much activity at home STG Duration 07/02/23 [facility] Goal (LTG) Pt will be able go for walks and hikes w/o pain that day or the next day greater than 2/ 10. 06/10-has been getting in 2-3 walks a day still having pain some after. 06/22/23 - went for 5mi hike with 0/10 pain that day or the next. LTG Duration 08/03/23 - Goal met 06/22/23 LEFS Impairment 48/80 Short Term Goal (STG) Pt will show improved functional ability by improved score of LEFS to at least 53/ 80 06/10-n/t STG Duration 07/02/23 [employer] Goal (LTG) Pt will show improved functional ability by improved score of LEFS to at least 60/ 80 LTG Duration 08/03/23 strength Short Term Goal (STG) Pt will be indep w/HEP STG Duration achieved advancing as able [facility] Goal (LTG) Pt will score at least 4+/5 on BLE MMT w/o inc pain and at least 3/5 on LPM into all planes to shwo improved stability to allow pt to cont active lifestyle w/o inc pain. 2.8-improving LTG Duration 08/03/23 balance Impairment SLS 5 sec R; 8 sec L Short Term Goal (STG) Pt will improve SLS to at least 10 sec B 2/8-8 sec R ; 12 sec L - achieved L improving R 06/15/23: 18s R, 10s L STG Duration 07/02/23 [facility] Goal (LTG) Pt will improve SLS to at least 15 sec B LTG Duration 08/03/23 Assessment Summary Assessment Treatment focus today on core and balance. Form w/ Basking seal and hip hike ex's improves w/ cues and repetition. Pt demonstrates improved control and self- awareness of TrA activation w/ education for self-monitoring , repetition, and cues for no breathholding; BKFO is appropriately challenging. Balance is most challenged medio-laterally w/ eyes closed and w/ balloon volleyball requireing Funmilayo>modA for balance recovery w/ repeated LOB to R. Physical Therapy Plan Frequency and Duration Frequency of Treatment 1-2x/wk Duration of treatment (weeks) 12 Plan of Care Start Date 05/11/23 Plan of Care End Date 08/03/23 Therapeutic Interventions Therapeutic Interventions Balance Training,Gait Training ,Home Exercise Program,Joint Mobilizations,Manual Therapy, Neuromuscular Re-education, Orthotic/Prosthetic Management ,Patient/Caregiver Education, Self-Care/Home Management,Soft Tissue Mobilization,Taping, Therapeutic Activities, Therapeutic Exercises Modalities Cold Pack/Ice Massage,Electric Stimulation,Hot Packs, Infrared Therapy,Ultrasound Next Visit Focus/Plan Next Note Type Treatment Note Next Visit Plan focus on hip abd engagement R & core work. focus on getting post dep R & work on pelvis and hip mobility to achieve this
--- NOTE | 2023-07-20 11:22 | PT.OTN ---
Current Diagnoses Pain in right hip (07/20/23) Pain in right knee (07/20/23) Muscle weakness (generalized) (07/20/23) Difficulty in walking, not elsewhere classified (07/20/23) Abnormal posture (07/20/23) Physical Therapy Treatment Note PT-OP-A Visit Information Start: 04/27/23 10:59 Freq: Status: Active Protocol: Document 07/20/23 10:37 [facility] (Rec: 07/20/23 11:22 [facility] [id number]) Out-Patient Physical Therapy Visit Information Visit Information Visit Type Progress Note Visit Note 05/12 Visit Start Time 10:37 Visit Stop Time 11:17 Visit Number 14 Number of EXCEPTIONAL CHILDREN'S TEACHER Visits 0 PT-OP-B Current Condition Start: 04/27/23 10:59 Freq: Status: Active Protocol: Document 05/11/23 08:20 [facility] (Rec: 05/11/23 09:07 [facility] [id number]) Current Condition History of Current Condition Onset Date 6 months ago Current Complaints R knee pain History of Current Condition Pt had R knee pain that her doctor gave her exercsies for about 10 to 12 years ago and it was better. She lost exercises. Its so painful that it wakes her at night. IT feels ok whens he goes to bed. It gets sore when she sits or stands a lot. She has been trying to go to [employer] but soem of the exercises bother her. She likes to garden on her knees. Pt tries to go for a walk everday [place] thinks that helps. [place] is harder than downhill. She is in a hiking group and it feels ok while hiking but she pays for it the next day. Denies swelling. Pt notes she feels like she has to lose weight. She is limiting most things. She takes ibuprofen when she hikes or after or when she needs and it helps. Does have problems in past w/ plantar fascitis and has store bought insoles and is particular w/ shoes. Pt notes buttocks pain that happens when the knee gets pretty back. Once in a while she gets back painb ut notes she tends to lift things that she should not like a wheel [place]. Treatment Goals Patient/Caregiver Goals be able to garden when it is time, be able to do walks w/o pain, be able to do exercises at home and gym w/o pain PT-OP-C Subjective Start: 04/27/23 10:59 Freq: Status: Active Protocol: Document 07/20/23 10:37 [facility] (Rec: 07/20/23 11:22 [facility] [id number]) OP-PT Subjective Patient Comments Patient Comments Pt reprots a lot of gardening over a few days and R hip was sore. kNee slightly PT-OP-D Balance Start: 04/27/23 10:59 Freq: Status: Active Protocol: Document 05/11/23 08:20 [facility] (Rec: 05/11/23 09:07 [facility] [id number]) Balance Tests Single Limb Standing Single Limb- Right 5 sec Single Limb- Left 8 sec PT-OP-F Manual Assessment Start: 04/27/23 10:59 Freq: Status: Active Protocol: Document 05/11/23 08:20 [facility] (Rec: 05/11/23 09:07 [facility] [id number]) Manual Assessments Joint Mobility Assessment Joint Mobility Assessment IR B femur and IR w/ squat; LLE turned out PT-OP-G Mobility & Gait Start: 04/27/23 10:59 Freq: Status: Active Protocol: Document 05/11/23 08:20 [facility] (Rec: 05/11/23 09:07 [facility] [id number]) OP Gait Assessment Comments Gait Comments comes down hard on RLE and has dec RLE stance time and dec push off PT-OP-J Posture/Palpation/Skin Start: 04/27/23 10:59 Freq: Status: Active Protocol: Document 07/20/23 10:37 [facility] (Rec: 07/20/23 11:22 [facility] [id number]) Posture Evaluation [facility] Postural Classification System Lumbar Protective Mechanism Left AP 2 Lumbar Protective Mechanism Right AP 2 Lumbar Protective Mechanism Left PA 2 Lumbar Protective Mechanism Right PA 2 PT-OP-K Range of Motion Start: 04/27/23 10:59 Freq: Status: Active Protocol: Document 05/11/23 08:20 [facility] (Rec: 05/11/23 09:07 [facility] [id number]) Knee Goniometric Range of Motion Knee Right Flexion Active (degrees) 114 Extension Active (degrees) 4 Comments ant strain w/ext & pull in HS w/flex Left Flexion Active (degrees) 124 Extension Active (degrees) 2 PT-OP-L Special Tests Start: 04/27/23 10:59 Freq: Status: Active Protocol: Document 05/11/23 08:20 [facility] (Rec: 05/11/23 09:07 [facility] [id number]) Special Tests Knee Special Tests Calvin Test Test Results neg but pt guards Thessaly Test 5 Degrees Test Results positive Apley's Compression Test Results neg PT-OP-M Strength Start: 04/27/23 10:59 Freq: Status: Active Protocol: Document 07/20/23 10:37 [facility] (Rec: 07/20/23 11:22 [facility] [id number]) Hip Strength Hip Manual Muscle Testing Right Flexion (L2) 4+ Good+ Extension (S1) 4 Good Abduction 4- Good- Adduction 4+ Good+ External Rotation 5 Normal Internal Rotation 4 Good Comments pain in hip w/abd Left Flexion (L2) 5 Normal Extension (S1) 4+ Good+ Abduction 4 Good Adduction 4+ Good+ External Rotation 4+ Good+ Internal Rotation 5 Normal Knee Strength Knee Manual Muscle Testing Right Flexion (S2) 5 Normal Extension (L3) 5 Normal Left Flexion (S2) 5 Normal Extension (L3) 5 Normal Ankle/Foot Strength Ankle and Foot Manual Muscle Testing Right Dorsiflexion (L4) 5 Normal Plantarflexion (S1) 5 Normal Inversion 5 Normal Eversion (S1) 5 Normal Left Dorsiflexion (L4) 5 Normal Plantarflexion (S1) 5 Normal Inversion 5 Normal Eversion (S1) 5 Normal Comments 20 heel raises B PT-OP-Q Treatments Start: 04/27/23 10:59 Freq: Status: Active Protocol: Document 07/20/23 10:37 [facility] (Rec: 07/20/23 11:22 [facility] [id number]) Gym Equipment Shuttle Balance Red clips Details balancing, PT pertbations and wt shifts ea Comments fwd: WBOS, NBOS, Stride stance B side: WBOS Therapeutic Exercises Sitting Exercises IR Sitting Exercise Name ball btwn knees Side right Equipment Used L2 band at feet Reps/Minutes 10 Standing Exercises sidesteps Side bilateral Resistance L2 at mid prieto then at ankles Reps/Minutes 20ft ea Comments cues slow &psture Other Exercises isometrics Other Exercise Name MMT and LPM testing Side bilateral Manual Therapy Treatment Joint Mobilizations hip Comments R post glide FM; R IR supine hip on axis FM; R inf glide FM Neuro Re-Education Treatment Balance Activities SLS Details B mult trials tandem Comments 1. B trials standing 2. walking 2x15ft PT-OP-T Assessment and Plan Start: 04/27/23 10:59 Freq: Status: Active Protocol: Document 07/20/23 10:37 [facility] (Rec: 07/20/23 11:22 [facility] [id number]) Physical Therapy Assessment Goals activity Short Term Goal (STG) Pt will be able to sleep w/o inc pain in R knee or hip 06/10-reports sleeping better through the night but wakes up to go to the bathroom (normal amt of times)-pain when she wakes but less 06/22/23 - depends on how much activity at home 07/19-sometimes when wake up R hip is sore; knee less often Senior Project Accountant Goal (LTG) Pt will be able go for walks and hikes w/o pain that day or the next day greater than 2/ 10. 06/10-has been getting in 2-3 walks a day still having pain some after. 06/22/23 - went for 5mi hike with 0/10 pain that day or the next. LTG Duration 08/03/23 - Goal met 06/22/23 LEFS Impairment 48/80 Short Term Goal (STG) Pt will show improved functional ability by improved score of LEFS to at least 53/ 80 06/10-n/t STG Duration achieved ot 58 07/19 Halfway Goal (LTG) Pt will show improved functional ability by improved score of LEFS to at least 60/ 80 07/19-58 LTG Duration 08/30 strength Short Term Goal (STG) Pt will be indep w/HEP STG Duration achieved advancing as able Senior Project Accountant Goal (LTG) Pt will score at least 4+/5 on BLE MMT w/o inc pain and at least 3/5 on LPM into all planes to shwo improved stability to allow pt to cont active lifestyle w/o inc pain. 2.8-improving 07/19-improved LTG Duration 08/30 balance Impairment SLS 5 sec R; 8 sec L Short Term Goal (STG) Pt will improve SLS to at least 10 sec B 06/10-8 sec R ; 12 sec L - achieved L improving R 06/15/23: 18s R, 10s L STG Duration achieved 06/15 Senior Project Accountant Goal (LTG) Pt will improve SLS to at least 15 sec B 07/19-6 sec B LTG Duration 08/31/23 Assessment Summary Assessment Pt has made good improvement w /PT and is doing more functionally at this time. She is stronger but does still have weakness of R ext, abd adn IR and dec balance that likely affects her function and pain. Pt reports improved pain level to about 1-3/10 now . Cont PT to work towards indep HEP and return to inc function w//o inc pain. Physical Therapy Plan Frequency and Duration Frequency of Treatment 1x/Week Duration of treatment (weeks) 6 Plan of Care Start Date 07/20/23 Plan of Care End Date 08/31/23 Therapeutic Interventions Therapeutic Interventions Balance Training,Gait Training ,Home Exercise Program,Joint Mobilizations,Manual Therapy, Neuromuscular Re-education, Orthotic/Prosthetic Management ,Patient/Caregiver Education, Self-Care/Home Management,Soft Tissue Mobilization,Taping, Therapeutic Activities, Therapeutic Exercises Modalities Cold Pack/Ice Massage,Electric Stimulation,Hot Packs, Infrared Therapy,Ultrasound Next Visit Focus/Plan Next Note Type Treatment Note Next Visit Plan focus on hip abd engagement R & core work. focus on balance
--- NOTE | 2023-07-20 11:24 | PT.OPPN ---
Current Diagnoses Pain in right hip (07/20/23) Pain in right knee (07/20/23) Muscle weakness (generalized) (07/20/23) Difficulty in walking, not elsewhere classified (07/20/23) Abnormal posture (07/20/23) Physical Therapy Progress Note PT-OP-A Visit Information Start: 04/27/23 10:59 Freq: Status: Active Protocol: Document 07/20/23 10:37 [facility] (Rec: 07/20/23 11:22 [facility] [id number]) Out-Patient Physical Therapy Visit Information Visit Information Visit Type Progress Note Visit Note 05/12 Visit Start Time 10:37 Visit Stop Time 11:17 Visit Number 14 Number of INSTRUCTOR DECORATING Visits 0 PT-OP-B Current Condition Start: 04/27/23 10:59 Freq: Status: Active Protocol: Document 05/11/23 08:20 [facility] (Rec: 05/11/23 09:07 [facility] [id number]) Current Condition History of Current Condition Onset Date 6 months ago Current Complaints R knee pain History of Current Condition Pt had R knee pain that her doctor gave her exercsies for about 10 to 12 years ago and it was better. She lost exercises. Its so painful that it wakes her at night. IT feels ok whens he goes to bed. It gets sore when she sits or stands a lot. She has been trying to go to [employer] but soem of the exercises bother her. She likes to garden on her knees. Pt tries to go for a walk everday [place] thinks that helps. [place] is harder than downhill. She is in a hiking group and it feels ok while hiking but she pays for it the next day. Denies swelling. Pt notes she feels like she has to lose weight. She is limiting most things. She takes ibuprofen when she hikes or after or when she needs and it helps. Does have problems in past w/ plantar fascitis and has store bought insoles and is particular w/ shoes. Pt notes buttocks pain that happens when the knee gets pretty back. Once in a while she gets back painb ut notes she tends to lift things that she should not like a wheel [place]. Treatment Goals Patient/Caregiver Goals be able to garden when it is time, be able to do walks w/o pain, be able to do exercises at home and gym w/o pain PT-OP-C Subjective Start: 04/27/23 10:59 Freq: Status: Active Protocol: Document 07/20/23 10:37 [facility] (Rec: 07/20/23 11:22 [facility] [id number]) OP-PT Subjective Patient Comments Patient Comments Pt reprots a lot of gardening over a few days and R hip was sore. kNee slightly PT-OP-D Balance Start: 04/27/23 10:59 Freq: Status: Active Protocol: Document 05/11/23 08:20 [facility] (Rec: 05/11/23 09:07 [facility] [id number]) Balance Tests Single Limb Standing Single Limb- Right 5 sec Single Limb- Left 8 sec PT-OP-F Manual Assessment Start: 04/27/23 10:59 Freq: Status: Active Protocol: Document 05/11/23 08:20 [facility] (Rec: 05/11/23 09:07 [facility] [id number]) Manual Assessments Joint Mobility Assessment Joint Mobility Assessment IR B femur and IR w/ squat; LLE turned out PT-OP-G Mobility & Gait Start: 04/27/23 10:59 Freq: Status: Active Protocol: Document 05/11/23 08:20 [facility] (Rec: 05/11/23 09:07 [facility] [id number]) OP Gait Assessment Comments Gait Comments comes down hard on RLE and has dec RLE stance time and dec push off PT-OP-J Posture/Palpation/Skin Start: 04/27/23 10:59 Freq: Status: Active Protocol: Document 07/20/23 10:37 [facility] (Rec: 07/20/23 11:22 [facility] [id number]) Posture Evaluation [facility] Postural Classification System Lumbar Protective Mechanism Left AP 2 Lumbar Protective Mechanism Right AP 2 Lumbar Protective Mechanism Left PA 2 Lumbar Protective Mechanism Right PA 2 PT-OP-K Range of Motion Start: 04/27/23 10:59 Freq: Status: Active Protocol: Document 05/11/23 08:20 [facility] (Rec: 05/11/23 09:07 [facility] [id number]) Knee Goniometric Range of Motion Knee Measured in Degrees Right Flexion Active (degrees) 114 Extension Active (degrees) 4 Comments ant strain w/ext & pull in HS w/flex Left Flexion Active (degrees) 124 Extension Active (degrees) 2 PT-OP-L Special Tests Start: 04/27/23 10:59 Freq: Status: Active Protocol: Document 05/11/23 08:20 [facility] (Rec: 05/11/23 09:07 [facility] [id number]) Special Tests Knee Special Tests Calvin Test Test Results neg but pt guards Thessaly Test 5 Degrees Test Results positive Apley's Compression Test Results neg PT-OP-M Strength Start: 04/27/23 10:59 Freq: Status: Active Protocol: Document 07/20/23 10:37 [facility] (Rec: 07/20/23 11:22 [facility] [id number]) Hip Strength Hip Manual Muscle Testing Right Flexion (L2) 4+ Good+ Extension (S1) 4 Good Abduction 4- Good- Adduction 4+ Good+ External Rotation 5 Normal Internal Rotation 4 Good Comments pain in hip w/abd Left Flexion (L2) 5 Normal Extension (S1) 4+ Good+ Abduction 4 Good Adduction 4+ Good+ External Rotation 4+ Good+ Internal Rotation 5 Normal Knee Strength Knee Manual Muscle Testing Right Flexion (S2) 5 Normal Extension (L3) 5 Normal Left Flexion (S2) 5 Normal Extension (L3) 5 Normal Ankle/Foot Strength Ankle and Foot Manual Muscle Testing Right Dorsiflexion (L4) 5 Normal Plantarflexion (S1) 5 Normal Inversion 5 Normal Eversion (S1) 5 Normal Left Dorsiflexion (L4) 5 Normal Plantarflexion (S1) 5 Normal Inversion 5 Normal Eversion (S1) 5 Normal Comments 20 heel raises B PT-OP-T Assessment and Plan Start: 04/27/23 10:59 Freq: Status: Active Protocol: Document 07/20/23 10:37 [facility] (Rec: 07/20/23 11:22 [facility] [id number]) Physical Therapy Assessment Goals activity Short Term Goal (STG) Pt will be able to sleep w/o inc pain in R knee or hip 06/10-reports sleeping better through the night but wakes up to go to the bathroom (normal amt of times)-pain when she wakes but less 06/22/23 - depends on how much activity at home 07/19-sometimes when wake up R hip is sore; knee less often Injection Moulding Machine Operator Goal (LTG) Pt will be able go for walks and hikes w/o pain that day or the next day greater than 2/ 10. 06/10-has been getting in 2-3 walks a day still having pain some after. 06/22/23 - went for 5mi hike with 0/10 pain that day or the next. LTG Duration 08/03/23 - Goal met 06/22/23 LEFS Impairment 48/80 Short Term Goal (STG) Pt will show improved functional ability by improved score of LEFS to at least 53/ 80 06/10-n/t STG Duration achieved ot 58 07/19 Injection Moulding Machine Operator Goal (LTG) Pt will show improved functional ability by improved score of LEFS to at least 60/ 80 07/19-58 LTG Duration 08/30 strength Short Term Goal (STG) Pt will be indep w/HEP STG Duration achieved advancing as able Injection Moulding Machine Operator Goal (LTG) Pt will score at least 4+/5 on BLE MMT w/o inc pain and at least 3/5 on LPM into all planes to shwo improved stability to allow pt to cont active lifestyle w/o inc pain. 2.8-improving 07/19-improved LTG Duration 08/30 balance Impairment SLS 5 sec R; 8 sec L Short Term Goal (STG) Pt will improve SLS to at least 10 sec B 06/10-8 sec R ; 12 sec L - achieved L improving R 06/15/23: 18s R, 10s L STG Duration achieved 06/15 Injection Moulding Machine Operator Goal (LTG) Pt will improve SLS to at least 15 sec B 07/19-6 sec B LTG Duration 08/31/23 Assessment Summary Assessment Pt has made good improvement w /PT and is doing more functionally at this time. She is stronger but does still have weakness of R ext, abd adn IR and dec balance that likely affects her function and pain. Pt reports improved pain level to about 1-3/10 now . Cont PT to work towards indep HEP and return to inc function w//o inc pain. Physical Therapy Plan Frequency and Duration Frequency of Treatment 1x/Week Duration of treatment (weeks) 6 Plan of Care Start Date 07/20/23 Plan of Care End Date 08/31/23 Therapeutic Interventions Therapeutic Interventions Balance Training,Gait Training ,Home Exercise Program,Joint Mobilizations,Manual Therapy, Neuromuscular Re-education, Orthotic/Prosthetic Management ,Patient/Caregiver Education, Self-Care/Home Management,Soft Tissue Mobilization,Taping, Therapeutic Activities, Therapeutic Exercises Modalities Cold Pack/Ice Massage,Electric Stimulation,Hot Packs, Infrared Therapy,Ultrasound Next Visit Focus/Plan Next Note Type Treatment Note Next Visit Plan focus on hip abd engagement R & core work. focus on balance
--- NOTE | 2023-07-20 11:24 | PT.OPPOC ---
Physical, Occupational & Speech Therapy At [facility] Current Diagnoses Pain in right hip (07/20/23) Pain in right knee (07/20/23) Muscle weakness (generalized) (07/20/23) Difficulty in walking, not elsewhere classified (07/20/23) Abnormal posture (07/20/23) Visit Care Team Role Provider Type ABRAM Canela Attending Provider Advanced Tearoom Host/Hostess Family Provider Primary Care Provider Referring Provider Specialty: Family Practice Address: [address] [place] [address], [facility] Email: [email or web address] Plan Of Care PT-OP-T Assessment and Plan Start: 04/27/23 10:59 Freq: Status: Active Protocol: Document 07/20/23 10:37 [facility] (Rec: 07/20/23 11:22 [facility] [id number]) Physical Therapy Assessment Goals activity Short Term Goal (STG) Pt will be able to sleep w/o inc pain in R knee or hip 06/10-reports sleeping better through the night but wakes up to go to the bathroom (normal amt of times)-pain when she wakes but less 06/22/23 - depends on how much activity at home 07/19-sometimes when wake up R hip is sore; knee less often Fpc Goal (LTG) Pt will be able go for walks and hikes w/o pain that day or the next day greater than 2/ 10. 06/10-has been getting in 2-3 walks a day still having pain some after. 06/22/23 - went for 5mi hike with 0/10 pain that day or the next. LTG Duration 08/03/23 - Goal met 06/22/23 LEFS Impairment 48/80 Short Term Goal (STG) Pt will show improved functional ability by improved score of LEFS to at least 53/ 80 06/10-n/t STG Duration achieved ot 58 07/19 Fixed Wing Aircraft Crew Chief Goal (LTG) Pt will show improved functional ability by improved score of LEFS to at least 60/ 80 07/19-58 LTG Duration 08/30 strength Short Term Goal (STG) Pt will be indep w/HEP STG Duration achieved advancing as able Fixed Wing Aircraft Crew Chief Goal (LTG) Pt will score at least 4+/5 on BLE MMT w/o inc pain and at least 3/5 on LPM into all planes to shwo improved stability to allow pt to cont active lifestyle w/o inc pain. 2.8-improving 07/19-improved LTG Duration 08/30 balance Impairment SLS 5 sec R; 8 sec L Short Term Goal (STG) Pt will improve SLS to at least 10 sec B 06/10-8 sec R ; 12 sec L - achieved L improving R 06/15/23: 18s R, 10s L STG Duration achieved 06/15 Fpc Goal (LTG) Pt will improve SLS to at least 15 sec B 07/19-6 sec B LTG Duration 08/31/23 Assessment Summary Assessment Pt has made good improvement w /PT and is doing more functionally at this time. She is stronger but does still have weakness of R ext, abd adn IR and dec balance that likely affects her function and pain. Pt reports improved pain level to about 1-3/10 now . Cont PT to work towards indep HEP and return to inc function w//o inc pain. Physical Therapy Plan Frequency and Duration Frequency of Treatment 1x/Week Duration of treatment (weeks) 6 Plan of Care Start Date 07/20/23 Plan of Care End Date 08/31/23 Therapeutic Interventions Therapeutic Interventions Balance Training,Gait Training ,Home Exercise Program,Joint Mobilizations,Manual Therapy, Neuromuscular Re-education, Orthotic/Prosthetic Management ,Patient/Caregiver Education, Self-Care/Home Management,Soft Tissue Mobilization,Taping, Therapeutic Activities, Therapeutic Exercises Modalities Cold Pack/Ice Massage,Electric Stimulation,Hot Packs, Infrared Therapy,Ultrasound Next Visit Focus/Plan Next Note Type Treatment Note Next Visit Plan focus on hip abd engagement R & core work. focus on balance Plan of Care Dates Plan of Care Start Date 07/20/23 Plan of Care End Date 08/31/23 Electronically Signed by: Haylee Elmore, PT 07/20/23 4799 If you are in agreement with this Plan of Care, please return a signed and dated copy. I have reviewed this Plan of Care and certify that the skilled therapy services above are required to meet the patient?s needs. Physician Signature Date Printed Name and Credentials Clinical Instructor Signature Printed Name and Credentials
--- NOTE | 2023-07-27 16:38 | PT.OTN ---
Current Diagnoses Pain in right hip (08/03/23) Pain in right knee (08/03/23) Muscle weakness (generalized) (08/03/23) Difficulty in walking, not elsewhere classified (08/03/23) Abnormal posture (08/03/23) Physical Therapy Treatment Note PT-OP-A Visit Information Start: 04/27/23 10:59 Freq: Status: Active Protocol: Document 07/27/23 11:30 [facility] (Rec: 07/27/23 13:04 [facility] [id number]) Out-Patient Physical Therapy Visit Information Visit Information Visit Type Treatment Note Visit Start Time 11:30 Visit Stop Time 12:10 Visit Number 15 Number of BRAIDING OPERATOR Visits 0 PT-OP-B Current Condition Start: 04/27/23 10:59 Freq: Status: Active Protocol: Document 05/11/23 08:20 [facility] (Rec: 05/11/23 09:07 [facility] [id number]) Current Condition History of Current Condition Onset Date 6 months ago Current Complaints R knee pain History of Current Condition Pt had R knee pain that her doctor gave her exercsies for about 10 to 12 years ago and it was better. She lost exercises. Its so painful that it wakes her at night. IT feels ok whens he goes to bed. It gets sore when she sits or stands a lot. She has been trying to go to [employer] but soem of the exercises bother her. She likes to garden on her knees. Pt tries to go for a walk everday [place] thinks that helps. [place] is harder than downhill. She is in a hiking group and it feels ok while hiking but she pays for it the next day. Denies swelling. Pt notes she feels like she has to lose weight. She is limiting most things. She takes ibuprofen when she hikes or after or when she needs and it helps. Does have problems in past w/ plantar fascitis and has store bought insoles and is particular w/ shoes. Pt notes buttocks pain that happens when the knee gets pretty back. Once in a while she gets back painb ut notes she tends to lift things that she should not like a wheel [place]. Treatment Goals Patient/Caregiver Goals be able to garden when it is time, be able to do walks w/o pain, be able to do exercises at home and gym w/o pain PT-OP-C Subjective Start: 04/27/23 10:59 Freq: Status: Active Protocol: Document 07/27/23 11:30 [facility] (Rec: 07/27/23 13:04 [facility] [id number]) OP-PT Subjective Patient Comments Patient Comments Pt reprots some inc soreness w /exercises PT-OP-D Balance Start: 04/27/23 10:59 Freq: Status: Active Protocol: Document 05/11/23 08:20 [facility] (Rec: 05/11/23 09:07 [facility] [id number]) Balance Tests Single Limb Standing Single Limb- Right 5 sec Single Limb- Left 8 sec PT-OP-F Manual Assessment Start: 04/27/23 10:59 Freq: Status: Active Protocol: Document 05/11/23 08:20 [facility] (Rec: 05/11/23 09:07 [facility] [id number]) Manual Assessments Joint Mobility Assessment Joint Mobility Assessment IR B femur and IR w/ squat; LLE turned out PT-OP-G Mobility & Gait Start: 04/27/23 10:59 Freq: Status: Active Protocol: Document 05/11/23 08:20 [facility] (Rec: 05/11/23 09:07 [facility] [id number]) OP Gait Assessment Comments Gait Comments comes down hard on RLE and has dec RLE stance time and dec push off PT-OP-J Posture/Palpation/Skin Start: 04/27/23 10:59 Freq: Status: Active Protocol: Document 07/20/23 10:37 [facility] (Rec: 07/20/23 11:22 [facility] [id number]) Posture Evaluation [facility] Postural Classification System Lumbar Protective Mechanism Left AP 2 Lumbar Protective Mechanism Right AP 2 Lumbar Protective Mechanism Left PA 2 Lumbar Protective Mechanism Right PA 2 PT-OP-K Range of Motion Start: 04/27/23 10:59 Freq: Status: Active Protocol: Document 05/11/23 08:20 [facility] (Rec: 05/11/23 09:07 [facility] [id number]) Knee Goniometric Range of Motion Knee Right Flexion Active (degrees) 114 Extension Active (degrees) 4 Comments ant strain w/ext & pull in HS w/flex Left Flexion Active (degrees) 124 Extension Active (degrees) 2 PT-OP-L Special Tests Start: 04/27/23 10:59 Freq: Status: Active Protocol: Document 05/11/23 08:20 [facility] (Rec: 05/11/23 09:07 [facility] [id number]) Special Tests Knee Special Tests Calvin Test Test Results neg but pt guards Thessaly Test 5 Degrees Test Results positive Apley's Compression Test Results neg PT-OP-M Strength Start: 04/27/23 10:59 Freq: Status: Active Protocol: Document 07/20/23 10:37 [facility] (Rec: 07/20/23 11:22 [facility] [id number]) Hip Strength Hip Manual Muscle Testing Right Flexion (L2) 4+ Good+ Extension (S1) 4 Good Abduction 4- Good- Adduction 4+ Good+ External Rotation 5 Normal Internal Rotation 4 Good Comments pain in hip w/abd Left Flexion (L2) 5 Normal Extension (S1) 4+ Good+ Abduction 4 Good Adduction 4+ Good+ External Rotation 4+ Good+ Internal Rotation 5 Normal Knee Strength Knee Manual Muscle Testing Right Flexion (S2) 5 Normal Extension (L3) 5 Normal Left Flexion (S2) 5 Normal Extension (L3) 5 Normal Ankle/Foot Strength Ankle and Foot Manual Muscle Testing Right Dorsiflexion (L4) 5 Normal Plantarflexion (S1) 5 Normal Inversion 5 Normal Eversion (S1) 5 Normal Left Dorsiflexion (L4) 5 Normal Plantarflexion (S1) 5 Normal Inversion 5 Normal Eversion (S1) 5 Normal Comments 20 heel raises B PT-OP-Q Treatments Start: 04/27/23 10:59 Freq: Status: Active Protocol: Document 07/27/23 11:30 [facility] (Rec: 07/27/23 13:04 [facility] [id number]) Gym Equipment Shuttle Balance Red clips Details balancing, PT pertbations and wt shifts ea Comments fwd: WBOS, NBOS, Stride stance B side: WBOS Therapeutic Exercises Standing Exercises hip hikes Standing Exercise Name 1. on step w/rail Side bilateral Reps/Minutes 2x10 ea Comments cues for form. hip ext Standing Exercise Name hip hinge to wt bear onto forearms Side bilateral Reps/Minutes 12 sidesteps Side bilateral Resistance L2 at mid prieto then at ankles Reps/Minutes 20ft ea Comments cues slow &psture Manual Therapy Treatment Soft Tissue Mobilization lat hip Body Location R ITB, TLF, lat glutes Mobilization Type Rolling Body Position Hooklying Comments w/ER /ir Joint Mobilizations hip Comments R abd FM s/l Neuro Re-Education Treatment Balance Activities SLS Comments 1. walking july 02. SLS B PT-OP-T Assessment and Plan Start: 04/27/23 10:59 Freq: Status: Active Protocol: Document 07/27/23 11:30 [facility] (Rec: 07/27/23 13:04 [facility] [id number]) Physical Therapy Assessment Goals activity Short Term Goal (STG) Pt will be able to sleep w/o inc pain in R knee or hip 06/10-reports sleeping better through the night but wakes up to go to the bathroom (normal amt of times)-pain when she wakes but less 06/22/23 - depends on how much activity at home 07/19-sometimes when wake up R hip is sore; knee less often Care Home Goal (LTG) Pt will be able go for walks and hikes w/o pain that day or the next day greater than 2/ 10. 06/10-has been getting in 2-3 walks a day still having pain some after. 06/22/23 - went for 5mi hike with 0/10 pain that day or the next. LTG Duration 08/03/23 - Goal met 06/22/23 LEFS Impairment 48/80 Short Term Goal (STG) Pt will show improved functional ability by improved score of LEFS to at least 53/ 80 06/10-n/t STG Duration achieved ot 58 07/19 Care Home Goal (LTG) Pt will show improved functional ability by improved score of LEFS to at least 60/ 80 07/19-58 LTG Duration 08/30 strength Short Term Goal (STG) Pt will be indep w/HEP STG Duration achieved advancing as able Care Home Goal (LTG) Pt will score at least 4+/5 on BLE MMT w/o inc pain and at least 3/5 on LPM into all planes to shwo improved stability to allow pt to cont active lifestyle w/o inc pain. 2.8-improving 07/19-improved LTG Duration 08/30 balance Impairment SLS 5 sec R; 8 sec L Short Term Goal (STG) Pt will improve SLS to at least 10 sec B 06/10-8 sec R ; 12 sec L - achieved L improving R 06/15/23: 18s R, 10s L STG Duration achieved 06/15 Care Home Goal (LTG) Pt will improve SLS to at least 15 sec B 07/19-6 sec B LTG Duration 08/31/23 Assessment Summary Assessment Pt requires cues with exercises and inc time for improved performance. Worked w /pt to dec pain w/exercises as focus of session Physical Therapy Plan Frequency and Duration Frequency of Treatment 1x/Week Duration of treatment (weeks) 6 Plan of Care Start Date 07/20/23 Plan of Care End Date 08/31/23 Next Visit Focus/Plan Next Note Type Treatment Note Next Visit Plan focus manual on improving innominate and hip mobility to dec hip pain; review exercises for form as needed
--- NOTE | 2023-08-03 13:43 | PT.OTN ---
Current Diagnoses Pain in right hip (08/03/23) Pain in right knee (08/03/23) Muscle weakness (generalized) (08/03/23) Difficulty in walking, not elsewhere classified (08/03/23) Abnormal posture (08/03/23) Physical Therapy Treatment Note PT-OP-A Visit Information Start: 04/27/23 10:59 Freq: Status: Active Protocol: Document 08/03/23 10:38 [facility] (Rec: 08/03/23 13:43 [facility] [id number]) Out-Patient Physical Therapy Visit Information Visit Information Visit Type Treatment Note Visit Start Time 10:38 Visit Stop Time 11:18 Visit Number 16 Number of FOAMING MACHINE OPERATOR Visits 0 PT-OP-B Current Condition Start: 04/27/23 10:59 Freq: Status: Active Protocol: Document 05/11/23 08:20 [facility] (Rec: 05/11/23 09:07 [facility] [id number]) Current Condition History of Current Condition Onset Date 6 months ago Current Complaints R knee pain History of Current Condition Pt had R knee pain that her doctor gave her exercsies for about 10 to 12 years ago and it was better. She lost exercises. Its so painful that it wakes her at night. IT feels ok whens he goes to bed. It gets sore when she sits or stands a lot. She has been trying to go to [employer] but soem of the exercises bother her. She likes to garden on her knees. Pt tries to go for a walk everday [place] thinks that helps. [place] is harder than downhill. She is in a hiking group and it feels ok while hiking but she pays for it the next day. Denies swelling. Pt notes she feels like she has to lose weight. She is limiting most things. She takes ibuprofen when she hikes or after or when she needs and it helps. Does have problems in past w/ plantar fascitis and has store bought insoles and is particular w/ shoes. Pt notes buttocks pain that happens when the knee gets pretty back. Once in a while she gets back painb ut notes she tends to lift things that she should not like a wheel [place]. Treatment Goals Patient/Caregiver Goals be able to garden when it is time, be able to do walks w/o pain, be able to do exercises at home and gym w/o pain PT-OP-C Subjective Start: 04/27/23 10:59 Freq: Status: Active Protocol: Document 08/03/23 10:38 [facility] (Rec: 08/03/23 13:43 [facility] [id number]) OP-PT Subjective Patient Comments Patient Comments Sl heel raises and seated piriformis stretch is what inc pain. Has only used ice once in the past week. Has done some gardening PT-OP-D Balance Start: 04/27/23 10:59 Freq: Status: Active Protocol: Document 05/11/23 08:20 [facility] (Rec: 05/11/23 09:07 [facility] [id number]) Balance Tests Single Limb Standing Single Limb- Right 5 sec Single Limb- Left 8 sec PT-OP-F Manual Assessment Start: 04/27/23 10:59 Freq: Status: Active Protocol: Document 05/11/23 08:20 [facility] (Rec: 05/11/23 09:07 [facility] [id number]) Manual Assessments Joint Mobility Assessment Joint Mobility Assessment IR B femur and IR w/ squat; LLE turned out PT-OP-G Mobility & Gait Start: 04/27/23 10:59 Freq: Status: Active Protocol: Document 05/11/23 08:20 [facility] (Rec: 05/11/23 09:07 [facility] [id number]) OP Gait Assessment Comments Gait Comments comes down hard on RLE and has dec RLE stance time and dec push off PT-OP-J Posture/Palpation/Skin Start: 04/27/23 10:59 Freq: Status: Active Protocol: Document 07/20/23 10:37 [facility] (Rec: 07/20/23 11:22 [facility] [id number]) Posture Evaluation [facility] Postural Classification System Lumbar Protective Mechanism Left AP 2 Lumbar Protective Mechanism Right AP 2 Lumbar Protective Mechanism Left PA 2 Lumbar Protective Mechanism Right PA 2 PT-OP-K Range of Motion Start: 04/27/23 10:59 Freq: Status: Active Protocol: Document 05/11/23 08:20 [facility] (Rec: 05/11/23 09:07 [facility] [id number]) Knee Goniometric Range of Motion Knee Right Flexion Active (degrees) 114 Extension Active (degrees) 4 Comments ant strain w/ext & pull in HS w/flex Left Flexion Active (degrees) 124 Extension Active (degrees) 2 PT-OP-L Special Tests Start: 04/27/23 10:59 Freq: Status: Active Protocol: Document 05/11/23 08:20 [facility] (Rec: 05/11/23 09:07 [facility] [id number]) Special Tests Knee Special Tests Calvin Test Test Results neg but pt guards Thessaly Test 5 Degrees Test Results positive Apley's Compression Test Results neg PT-OP-M Strength Start: 04/27/23 10:59 Freq: Status: Active Protocol: Document 07/20/23 10:37 [facility] (Rec: 07/20/23 11:22 [facility] [id number]) Hip Strength Hip Manual Muscle Testing Right Flexion (L2) 4+ Good+ Extension (S1) 4 Good Abduction 4- Good- Adduction 4+ Good+ External Rotation 5 Normal Internal Rotation 4 Good Comments pain in hip w/abd Left Flexion (L2) 5 Normal Extension (S1) 4+ Good+ Abduction 4 Good Adduction 4+ Good+ External Rotation 4+ Good+ Internal Rotation 5 Normal Knee Strength Knee Manual Muscle Testing Right Flexion (S2) 5 Normal Extension (L3) 5 Normal Left Flexion (S2) 5 Normal Extension (L3) 5 Normal Ankle/Foot Strength Ankle and Foot Manual Muscle Testing Right Dorsiflexion (L4) 5 Normal Plantarflexion (S1) 5 Normal Inversion 5 Normal Eversion (S1) 5 Normal Left Dorsiflexion (L4) 5 Normal Plantarflexion (S1) 5 Normal Inversion 5 Normal Eversion (S1) 5 Normal Comments 20 heel raises B PT-OP-Q Treatments Start: 04/27/23 10:59 Freq: Status: Active Protocol: Document 08/03/23 10:38 [facility] (Rec: 08/03/23 13:43 [facility] [id number]) Therapeutic Exercises Supine Exercises Core Supine Exercise Name DL isometric Side bilateral Reps/Minutes 30 sec Sitting Exercises IR Sitting Exercise Name ball btwn knees Side right Equipment Used L2 band at feet Reps/Minutes 10x2 stretching Sitting Exercise Name piriformis to opp chest Side right Reps/Minutes 30 Comments stopped d/t pain even w/cues for posture Standing Exercises hip hikes Standing Exercise Name 1. on step w/rail Side bilateral Reps/Minutes 2x10 ea Comments cues for form. heel raises Standing Exercise Name SL Side bilateral Equipment Used handrail Reps/Minutes 20 Comments cues for hip position & core hip ext Standing Exercise Name hip hinge to wt bear onto forearms Side bilateral Equipment Used L2 Reps/Minutes 12 ea sidesteps Side bilateral Resistance L2 ankles Reps/Minutes 20ft ea Comments cues slow &psture Manual Therapy Treatment Soft Tissue Mobilization lat hip Body Location R lat and post glutes, ITB Mobilization Type Rolling Comments w/hip flex IR Joint Mobilizations innominate Comments R flex and ER hooklying FM hip Comments R inf FM & inf lat FM PT-OP-T Assessment and Plan Start: 04/27/23 10:59 Freq: Status: Active Protocol: Document 08/03/23 10:38 [facility] (Rec: 08/03/23 13:43 [facility] [id number]) Physical Therapy Assessment Goals activity Short Term Goal (STG) Pt will be able to sleep w/o inc pain in R knee or hip 06/10-reports sleeping better through the night but wakes up to go to the bathroom (normal amt of times)-pain when she wakes but less 06/22/23 - depends on how much activity at home 07/19-sometimes when wake up R hip is sore; knee less often Mica Washer Gluer Goal (LTG) Pt will be able go for walks and hikes w/o pain that day or the next day greater than 2/ 10. 06/10-has been getting in 2-3 walks a day still having pain some after. 06/22/23 - went for 5mi hike with 0/10 pain that day or the next. LTG Duration 08/03/23 - Goal met 06/22/23 LEFS Impairment 48/80 Short Term Goal (STG) Pt will show improved functional ability by improved score of LEFS to at least 53/ 80 06/10-n/t STG Duration achieved ot 58 07/19 Mica Washer Gluer Goal (LTG) Pt will show improved functional ability by improved score of LEFS to at least 60/ 80 07/19-58 LTG Duration 08/30 strength Short Term Goal (STG) Pt will be indep w/HEP STG Duration achieved advancing as able [facility] Goal (LTG) Pt will score at least 4+/5 on BLE MMT w/o inc pain and at least 3/5 on LPM into all planes to shwo improved stability to allow pt to cont active lifestyle w/o inc pain. 2.8-improving 07/19-improved LTG Duration 08/30 balance Impairment SLS 5 sec R; 8 sec L Short Term Goal (STG) Pt will improve SLS to at least 10 sec B 06/10-8 sec R ; 12 sec L - achieved L improving R 06/15/23: 18s R, 10s L STG Duration achieved 06/15 Mica Washer Gluer Goal (LTG) Pt will improve SLS to at least 15 sec B 07/19-6 sec B LTG Duration 08/31/23 Assessment Summary Assessment pt showed much improved performance of exercises w/min cues w/sidestep and hip hikes most prominient need. Stopped piriformis stretch as this inc pt pain. Pt understands Physical Therapy Plan Frequency and Duration Frequency of Treatment 1x/Week Duration of treatment (weeks) 6 Plan of Care Start Date 07/20/23 Plan of Care End Date 08/31/23 Next Visit Focus/Plan Next Note Type Treatment Note Next Visit Plan focus manual on improving innominate and hip mobility to dec hip pain; review exercises for form as needed
--- NOTE | 2023-08-10 11:19 | PT.OTN ---
Current Diagnoses Pain in right hip (08/10/23) Pain in right knee (08/10/23) Muscle weakness (generalized) (08/10/23) Difficulty in walking, not elsewhere classified (08/10/23) Abnormal posture (08/10/23) Physical Therapy Treatment Note PT-OP-A Visit Information Start: 04/27/23 10:59 Freq: Status: Active Protocol: Document 08/10/23 10:26 [facility] (Rec: 08/10/23 11:19 NB [id number]) Out-Patient Physical Therapy Visit Information Visit Information Visit Type Treatment Note Visit Start Time 10:30 Visit Stop Time 11:15 Visit Number 17 Number of ASSISTANT SALES MANAGER Visits 1 PT-OP-B Current Condition Start: 04/27/23 10:59 Freq: Status: Active Protocol: Document 05/11/23 08:20 [facility] (Rec: 05/11/23 09:07 [facility] [id number]) Current Condition History of Current Condition Onset Date 6 months ago Current Complaints R knee pain History of Current Condition Pt had R knee pain that her doctor gave her exercsies for about 10 to 12 years ago and it was better. She lost exercises. Its so painful that it wakes her at night. IT feels ok whens he goes to bed. It gets sore when she sits or stands a lot. She has been trying to go to [place] but soem of the exercises bother her. She likes to garden on her knees. Pt tries to go for a walk everday [place] thinks that helps. [place] is harder than downhill. She is in a hiking group and it feels ok while hiking but she pays for it the next day. Denies swelling. Pt notes she feels like she has to lose weight. She is limiting most things. She takes ibuprofen when she hikes or after or when she needs and it helps. Does have problems in past w/ plantar fascitis and has store bought insoles and is particular w/ shoes. Pt notes buttocks pain that happens when the knee gets pretty back. Once in a while she gets back painb ut notes she tends to lift things that she should not like a wheel [place]. Treatment Goals Patient/Caregiver Goals be able to garden when it is time, be able to do walks w/o pain, be able to do exercises at home and gym w/o pain PT-OP-C Subjective Start: 04/27/23 10:59 Freq: Status: Active Protocol: Document 08/10/23 10:26 [facility] (Rec: 08/10/23 11:19 [facility] [id number]) OP-PT Subjective Patient Comments Patient Comments Ruthann reports she felt like she got a workout after the last visit. Hip has been really good the last three or four day, but she slept funny on it last night and it's a bit sore. She was gardening too, so that was good. PT-OP-D Balance Start: 04/27/23 10:59 Freq: Status: Active Protocol: Document 05/11/23 08:20 [facility] (Rec: 05/11/23 09:07 [facility] [id number]) Balance Tests Single Limb Standing Single Limb- Right 5 sec Single Limb- Left 8 sec PT-OP-F Manual Assessment Start: 04/27/23 10:59 Freq: Status: Active Protocol: Document 05/11/23 08:20 [facility] (Rec: 05/11/23 09:07 [facility] [id number]) Manual Assessments Joint Mobility Assessment Joint Mobility Assessment IR B femur and IR w/ squat; LLE turned out PT-OP-G Mobility & Gait Start: 04/27/23 10:59 Freq: Status: Active Protocol: Document 05/11/23 08:20 [facility] (Rec: 05/11/23 09:07 [facility] [id number]) OP Gait Assessment Comments Gait Comments comes down hard on RLE and has dec RLE stance time and dec push off PT-OP-J Posture/Palpation/Skin Start: 04/27/23 10:59 Freq: Status: Active Protocol: Document 07/20/23 10:37 [facility] (Rec: 07/20/23 11:22 [facility] [id number]) Posture Evaluation Janna Postural Classification System Lumbar Protective Mechanism Left AP 2 Lumbar Protective Mechanism Right AP 2 Lumbar Protective Mechanism Left PA 2 Lumbar Protective Mechanism Right PA 2 PT-OP-K Range of Motion Start: 04/27/23 10:59 Freq: Status: Active Protocol: Document 05/11/23 08:20 [facility] (Rec: 05/11/23 09:07 [facility] [id number]) Knee Goniometric Range of Motion Knee Right Flexion Active (degrees) 114 Extension Active (degrees) 4 Comments ant strain w/ext & pull in HS w/flex Left Flexion Active (degrees) 124 Extension Active (degrees) 2 PT-OP-L Special Tests Start: 04/27/23 10:59 Freq: Status: Active Protocol: Document 05/11/23 08:20 [facility] (Rec: 05/11/23 09:07 [facility] [id number]) Special Tests Knee Special Tests Calvin Test Test Results neg but pt guards Thessaly Test 5 Degrees Test Results positive Apley's Compression Test Results neg PT-OP-M Strength Start: 04/27/23 10:59 Freq: Status: Active Protocol: Document 07/20/23 10:37 [facility] (Rec: 07/20/23 11:22 [facility] [id number]) Hip Strength Hip Manual Muscle Testing Right Flexion (L2) 4+ Good+ Extension (S1) 4 Good Abduction 4- Good- Adduction 4+ Good+ External Rotation 5 Normal Internal Rotation 4 Good Comments pain in hip w/abd Left Flexion (L2) 5 Normal Extension (S1) 4+ Good+ Abduction 4 Good Adduction 4+ Good+ External Rotation 4+ Good+ Internal Rotation 5 Normal Knee Strength Knee Manual Muscle Testing Right Flexion (S2) 5 Normal Extension (L3) 5 Normal Left Flexion (S2) 5 Normal Extension (L3) 5 Normal Ankle/Foot Strength Ankle and Foot Manual Muscle Testing Right Dorsiflexion (L4) 5 Normal Plantarflexion (S1) 5 Normal Inversion 5 Normal Eversion (S1) 5 Normal Left Dorsiflexion (L4) 5 Normal Plantarflexion (S1) 5 Normal Inversion 5 Normal Eversion (S1) 5 Normal Comments 20 heel raises B PT-OP-Q Treatments Start: 04/27/23 10:59 Freq: Status: Active Protocol: Document 08/10/23 10:26 [facility] (Rec: 08/10/23 11:19 [facility] [id number]) Therapeutic Exercises Sidelying Exercises basking seal Sidelying Exercise Name drop of LEs off edge Side bilateral Reps/Minutes 10 Comments cues for both legs bent, move together Sitting Exercises IR Sitting Exercise Name pillow btwn knees Side right Equipment Used L2 band at feet Reps/Minutes x10 ea Standing Exercises hip hikes Standing Exercise Name 1. on step w/rail Side bilateral Reps/Minutes 2x10 ea Comments min cues for form. calf stretch Standing Exercise Name HEP reviewq Side bilateral Reps/Minutes 30 ea Comments cues for foot placement hip width heel raises Standing Exercise Name SL Side bilateral Equipment Used handrail Reps/Minutes 20 Comments cues for hip position & core, cue eccentri control w/ fatigue hip ext Standing Exercise Name hip hinge to wt bear onto forearms Side bilateral Equipment Used w and wo L2 Tb Reps/Minutes x20 wo, x10 w Comments Pt encouraged to do w/ Tb x10, then wo x10 sidesteps Side bilateral Resistance L2 ankles Reps/Minutes 20ft ea Comments cues slow &psture, eccentric control Manual Therapy Treatment Soft Tissue Mobilization lat hip Body Location R lat and post glutes, ITB Mobilization Type Rolling Comments w/hip flex IR piriformis Body Location R & glute Mobilization Type Sustained Pressure Intensity/Depth Moderate Body Position Prone Comments w/hip IR, manual stretch. PT-OP-T Assessment and Plan Start: 04/27/23 10:59 Freq: Status: Active Protocol: Document 08/10/23 10:26 [facility] (Rec: 08/10/23 11:19 [facility] [id number]) Physical Therapy Assessment Goals activity Short Term Goal (STG) Pt will be able to sleep w/o inc pain in R knee or hip 06/10-reports sleeping better through the night but wakes up to go to the bathroom (normal amt of times)-pain when she wakes but less 06/22/23 - depends on how much activity at home 07/19-sometimes when wake up R hip is sore; knee less often Global Chief Experience Officer Goal (LTG) Pt will be able go for walks and hikes w/o pain that day or the next day greater than 2/ 10. 06/10-has been getting in 2-3 walks a day still having pain some after. 06/22/23 - went for 5mi hike with 0/10 pain that day or the next. LTG Duration 08/03/23 - Goal met 06/22/23 LEFS Impairment 48/80 Short Term Goal (STG) Pt will show improved functional ability by improved score of LEFS to at least 53/ 80 06/10-n/t STG Duration achieved ot 58 07/19 Global Chief Experience Officer Goal (LTG) Pt will show improved functional ability by improved score of LEFS to at least 60/ 80 07/19- LTG Duration 08/30 strength Short Term Goal (STG) Pt will be indep w/HEP STG Duration achieved advancing as able Global Chief Experience Officer Goal (LTG) Pt will score at least 4+/5 on BLE MMT w/o inc pain and at least 3/5 on LPM into all planes to shwo improved stability to allow pt to cont active lifestyle w/o inc pain. 2.8-improving 07/19-improved LTG Duration 08/30 balance Impairment SLS 5 sec R; 8 sec L Short Term Goal (STG) Pt will improve SLS to at least 10 sec B 06/10-8 sec R ; 12 sec L - achieved L improving R 06/15/23: 18s R, 10s L STG Duration achieved 06/15 Global Chief Experience Officer Goal (LTG) Pt will improve SLS to at least 15 sec B 07/19-6 sec B LTG Duration 08/31/23 Assessment Summary Assessment Treatment focus on HEP review, hip strengthening and STM to R hip. HEP progressed to add Lvl 2 Tb to hip extension on forearms x10 then no theraband x10. Ruthann requires consistent cues for slower pacing and eccentric control w / resisted sidesteps and hip extension. Palpable tension to R piriformis improves w/ manual therapy. Pt plans to ice R hip at home. Physical Therapy Plan Frequency and Duration Frequency of Treatment 1x/Week Duration of treatment (weeks) 6 Plan of Care Start Date 07/20/23 Plan of Care End Date 08/31/23 Therapeutic Interventions Therapeutic Interventions Balance Training,Gait Training ,Home Exercise Program,Joint Mobilizations,Manual Therapy, Neuromuscular Re-education, Orthotic/Prosthetic Management ,Patient/Caregiver Education, Self-Care/Home Management,Soft Tissue Mobilization,Taping, Therapeutic Activities, Therapeutic Exercises Modalities Cold Pack/Ice Massage,Electric Stimulation,Hot Packs, Infrared Therapy,Ultrasound Next Visit Focus/Plan Next Note Type Treatment Note Next Visit Plan focus manual on improving innominate and hip mobility to dec hip pain; review exercises for form as needed
--- NOTE | 2023-08-17 08:11 | PT.OTN ---
Current Diagnoses Pain in right hip (08/17/23) Pain in right knee (08/17/23) Muscle weakness (generalized) (08/17/23) Difficulty in walking, not elsewhere classified (08/17/23) Abnormal posture (08/17/23) Physical Therapy Treatment Note PT-OP-A Visit Information Start: 04/27/23 10:59 Freq: Status: Active Protocol: Document 08/17/23 07:32 [facility] (Rec: 08/17/23 08:15 [facility] [id number]) Out-Patient Physical Therapy Visit Information Visit Information Visit Type Treatment Note Visit Start Time 07:32 Visit Stop Time 08:11 Visit Number 40 Number of DENTAL LABORATORY MANAGER Visits 2 PT-OP-B Current Condition Start: 04/27/23 10:59 Freq: Status: Active Protocol: Document 05/11/23 08:20 [facility] (Rec: 05/11/23 09:07 [facility] [id number]) Current Condition History of Current Condition Onset Date 6 months ago Current Complaints R knee pain History of Current Condition Pt had R knee pain that her doctor gave her exercsies for about 10 to 12 years ago and it was better. She lost exercises. Its so painful that it wakes her at night. IT feels ok whens he goes to bed. It gets sore when she sits or stands a lot. She has been trying to go to [employer] but soem of the exercises bother her. She likes to garden on her knees. Pt tries to go for a walk everday [place] thinks that helps. [place] is harder than downhill. She is in a hiking group and it feels ok while hiking but she pays for it the next day. Denies swelling. Pt notes she feels like she has to lose weight. She is limiting most things. She takes ibuprofen when she hikes or after or when she needs and it helps. Does have problems in past w/ plantar fascitis and has store bought insoles and is particular w/ shoes. Pt notes buttocks pain that happens when the knee gets pretty back. Once in a while she gets back painb ut notes she tends to lift things that she should not like a wheel [id number]. Treatment Goals Patient/Caregiver Goals be able to garden when it is time, be able to do walks w/o pain, be able to do exercises at home and gym w/o pain PT-OP-C Subjective Start: 04/27/23 10:59 Freq: Status: Active Protocol: Document 08/17/23 07:32 [facility] (Rec: 08/17/23 08:15 [facility] [id number]) OP-PT Subjective Patient Comments Patient Comments Pt stated good work out, sometimes takes couple hrs to recovery and utilize ice if needed but usually feel pretty good. She reports hasnt' done basking seal lateral leg stretch as much as planned. PT-OP-D Balance Start: 04/27/23 10:59 Freq: Status: Active Protocol: Document 05/11/23 08:20 [facility] (Rec: 05/11/23 09:07 [facility] [id number]) Balance Tests Single Limb Standing Single Limb- Right 5 sec Single Limb- Left 8 sec PT-OP-F Manual Assessment Start: 04/27/23 10:59 Freq: Status: Active Protocol: Document 05/11/23 08:20 [facility] (Rec: 05/11/23 09:07 [facility] [id number]) Manual Assessments Joint Mobility Assessment Joint Mobility Assessment IR B femur and IR w/ squat; LLE turned out PT-OP-G Mobility & Gait Start: 04/27/23 10:59 Freq: Status: Active Protocol: Document 05/11/23 08:20 [facility] (Rec: 05/11/23 09:07 [facility] [id number]) OP Gait Assessment Comments Gait Comments comes down hard on RLE and has dec RLE stance time and dec push off PT-OP-J Posture/Palpation/Skin Start: 04/27/23 10:59 Freq: Status: Active Protocol: Document 07/20/23 10:37 [facility] (Rec: 07/20/23 11:22 [facility] [id number]) Posture Evaluation Janna Postural Classification System Lumbar Protective Mechanism Left AP 2 Lumbar Protective Mechanism Right AP 2 Lumbar Protective Mechanism Left PA 2 Lumbar Protective Mechanism Right PA 2 PT-OP-K Range of Motion Start: 04/27/23 10:59 Freq: Status: Active Protocol: Document 05/11/23 08:20 [facility] (Rec: 05/11/23 09:07 [facility] [id number]) Knee Goniometric Range of Motion Knee Right Flexion Active (degrees) 114 Extension Active (degrees) 4 Comments ant strain w/ext & pull in HS w/flex Left Flexion Active (degrees) 124 Extension Active (degrees) 2 PT-OP-L Special Tests Start: 04/27/23 10:59 Freq: Status: Active Protocol: Document 05/11/23 08:20 [facility] (Rec: 05/11/23 09:07 [facility] [id number]) Special Tests Knee Special Tests Calvin Test Test Results neg but pt guards Thessaly Test 5 Degrees Test Results positive Apley's Compression Test Results neg PT-OP-M Strength Start: 04/27/23 10:59 Freq: Status: Active Protocol: Document 07/20/23 10:37 [facility] (Rec: 07/20/23 11:22 [facility] [id number]) Hip Strength Hip Manual Muscle Testing Right Flexion (L2) 4+ Good+ Extension (S1) 4 Good Abduction 4- Good- Adduction 4+ Good+ External Rotation 5 Normal Internal Rotation 4 Good Comments pain in hip w/abd Left Flexion (L2) 5 Normal Extension (S1) 4+ Good+ Abduction 4 Good Adduction 4+ Good+ External Rotation 4+ Good+ Internal Rotation 5 Normal Knee Strength Knee Manual Muscle Testing Right Flexion (S2) 5 Normal Extension (L3) 5 Normal Left Flexion (S2) 5 Normal Extension (L3) 5 Normal Ankle/Foot Strength Ankle and Foot Manual Muscle Testing Right Dorsiflexion (L4) 5 Normal Plantarflexion (S1) 5 Normal Inversion 5 Normal Eversion (S1) 5 Normal Left Dorsiflexion (L4) 5 Normal Plantarflexion (S1) 5 Normal Inversion 5 Normal Eversion (S1) 5 Normal Comments 20 heel raises B PT-OP-Q Treatments Start: 04/27/23 10:59 Freq: Status: Active Protocol: Document 08/17/23 07:32 [facility] (Rec: 08/17/23 08:15 [facility] [id number]) Cardio Equipment Recumbent Bicycle Duration (Minutes) 6 Resistance 11 Seat Position 3 Other 45 RPMs Therapeutic Exercises Standing Exercises SL slider Standing Exercise Name initiated in PT- will continue next tx. Side bilateral Equipment Used slider vs SLS cone taps Reps/Minutes 5 reps 3-4 clock position Comments cued tall over stance soft knee positioning. hip hikes Standing Exercise Name on step w/rail Side bilateral Equipment Used 4 step, rail support Reps/Minutes 2x10 ea Comments min cues for glut med stance support lift/lower opp LE- deeper tires it calf stretch Standing Exercise Name HEP review Side bilateral Equipment Used bottom step, rail support Reps/Minutes 30 ea Comments cues for forefoot edge step, hip width heel raises Standing Exercise Name SL Side bilateral Equipment Used handrail 15% of 1 finger Reps/Minutes 20 Comments cues for hip position & core, cue eccentri control w/ fatigue hip ext Standing Exercise Name hip hinge to wt bear onto forearms Side bilateral Resistance side //bar for support assimulation use chair home Equipment Used L2>L3 habematolel green Tb Reps/Minutes 2x10 w Comments Pt encouraged to do w/ Tb x10, then wo x10 sidesteps Side bilateral Resistance L2> L3 habematolel green at ankles Reps/Minutes 20ft ea Comments cues slow eccentric control for safety trail LE clearance PT-OP-T Assessment and Plan Start: 04/27/23 10:59 Freq: Status: Active Protocol: Document 08/17/23 07:32 [facility] (Rec: 08/17/23 08:15 [facility] [id number]) Physical Therapy Assessment Goals activity Short Term Goal (STG) Pt will be able to sleep w/o inc pain in R knee or hip 06/10-reports sleeping better through the night but wakes up to go to the bathroom (normal amt of times)-pain when she wakes but less 06/22/23 - depends on how much activity at home 07/19-sometimes when wake up R hip is sore; knee less often 08/17/23: mostly sleep L and back, when wakes up on R about 1hr and lets her know still bothersome need adjust positioning. STG Duration slow progression 08/17/23 Solder Technician Goal (LTG) Pt will be able go for walks and hikes w/o pain that day or the next day greater than 2/ 10. 06/10-has been getting in 2-3 walks a day still having pain some after. 06/22/23 - went for 5mi hike with 0/10 pain that day or the next. LTG Duration 08/03/23 - Goal met 06/22/23 LEFS Impairment 48/80 Short Term Goal (STG) Pt will show improved functional ability by improved score of LEFS to at least 53/ 80 06/10-n/t STG Duration achieved ot 58 07/19 [facility] Goal (LTG) Pt will show improved functional ability by improved score of LEFS to at least 60/ 80 07/19-58 LTG Duration 08/30 strength Short Term Goal (STG) Pt will be indep w/HEP STG Duration achieved advancing as able Solder Technician Goal (LTG) Pt will score at least 4+/5 on BLE MMT w/o inc pain and at least 3/5 on LPM into all planes to shwo improved stability to allow pt to cont active lifestyle w/o inc pain. 2.8-improving 07/19-improved LTG Duration 08/30 balance Impairment SLS 5 sec R; 8 sec L Short Term Goal (STG) Pt will improve SLS to at least 10 sec B 06/10-8 sec R ; 12 sec L - achieved L improving R 06/15/23: 18s R, 10s L STG Duration achieved 06/15 Solder Technician Goal (LTG) Pt will improve SLS to at least 15 sec B 07/19-6 sec B 08/17/23: opp LE foot front: LLE 9, 10 sec, RLE 4, 13 sec LTG Duration 08/31/23 progression 08/17/23 Assessment Summary Assessment Tx focused on LE strengthening with progression into SL to allow safety stepping uneven yard work with reported improvement and no pain accept still wakes her up at night. She tolerated increased resistance L3 TB today with no adverse affects. She feel will be ready to continue on own after last scheduled 2 txs . Physical Therapy Plan Frequency and Duration Frequency of Treatment 1x/Week Duration of treatment (weeks) 6 Plan of Care Start Date 07/20/23 Plan of Care End Date 08/31/23 Therapeutic Interventions Therapeutic Interventions Balance Training,Gait Training ,Home Exercise Program,Joint Mobilizations,Manual Therapy, Neuromuscular Re-education, Orthotic/Prosthetic Management ,Patient/Caregiver Education, Self-Care/Home Management,Soft Tissue Mobilization,Taping, Therapeutic Activities, Therapeutic Exercises Modalities Cold Pack/Ice Massage,Electric Stimulation,Hot Packs, Infrared Therapy,Ultrasound Next Visit Focus/Plan Next Note Type Treatment Note Next Visit Plan Pt ready continue own after 2 tx. Continue SL progression for safety inyard.
--- NOTE | 2023-08-24 13:31 | PT.OTN ---
Current Diagnoses Pain in right hip (08/24/23) Pain in right knee (08/24/23) Muscle weakness (generalized) (08/24/23) Difficulty in walking, not elsewhere classified (08/24/23) Abnormal posture (08/24/23) Physical Therapy Treatment Note PT-OP-A Visit Information Start: 04/27/23 10:59 Freq: Status: Active Protocol: Document 08/24/23 09:44 NB (Rec: 08/24/23 10:36 [facility] [id number]) Out-Patient Physical Therapy Visit Information Visit Information Visit Type Treatment Note Visit Note D/C next visit. Visit Start Time 09:45 Visit Stop Time 10:31 Visit Number 41 Number of POWER SWEEPER OPERATOR Visits 3 PT-OP-B Current Condition Start: 04/27/23 10:59 Freq: Status: Active Protocol: Document 05/11/23 08:20 [facility] (Rec: 05/11/23 09:07 [facility] [id number]) Current Condition History of Current Condition Onset Date 6 months ago Current Complaints R knee pain History of Current Condition Pt had R knee pain that her doctor gave her exercsies for about 10 to 12 years ago and it was better. She lost exercises. Its so painful that it wakes her at night. IT feels ok whens he goes to bed. It gets sore when she sits or stands a lot. She has been trying to go to [employer] but soem of the exercises bother her. She likes to garden on her knees. Pt tries to go for a walk everday [place] thinks that helps. [place]ph[place] is harder than downhill. She is in a hiking group and it feels ok while hiking but she pays for it the next day. Denies swelling. Pt notes she feels like she has to lose weight. She is limiting most things. She takes ibuprofen when she hikes or after or when she needs and it helps. Does have problems in past w/ plantar fascitis and has store bought insoles and is particular w/ shoes. Pt notes buttocks pain that happens when the knee gets pretty back. Once in a while she gets back painb ut notes she tends to lift things that she should not like a wheel [place]. Treatment Goals Patient/Caregiver Goals be able to garden when it is time, be able to do walks w/o pain, be able to do exercises at home and gym w/o pain PT-OP-C Subjective Start: 04/27/23 10:59 Freq: Status: Active Protocol: Document 08/24/23 09:44 [facility] (Rec: 08/24/23 10:36 [facility] [id number]) OP-PT Subjective Patient Comments Patient Comments Ruthann reports she always feels better after Physical Therapy . She's still having balance issues and did 10 seconds on each leg this morning. Last visit they figured out if she sticks the loose leg forward it helps her balance. She went on a hike Wednesday with friends and had no issues as it was mostly flat, but afterwards tripped on friend's steps which were stones because she was tired. She did her ex's this morning. Patient Reported Progress Improving PT-OP-D Balance Start: 04/27/23 10:59 Freq: Status: Active Protocol: Document 05/11/23 08:20 [facility] (Rec: 05/11/23 09:07 [facility] [id number]) Balance Tests Single Limb Standing Single Limb- Right 5 sec Single Limb- Left 8 sec PT-OP-F Manual Assessment Start: 04/27/23 10:59 Freq: Status: Active Protocol: Document 05/11/23 08:20 [facility] (Rec: 05/11/23 09:07 [facility] [id number]) Manual Assessments Joint Mobility Assessment Joint Mobility Assessment IR B femur and IR w/ squat; LLE turned out PT-OP-G Mobility & Gait Start: 04/27/23 10:59 Freq: Status: Active Protocol: Document 05/11/23 08:20 [facility] (Rec: 05/11/23 09:07 [facility] [id number]) OP Gait Assessment Comments Gait Comments comes down hard on RLE and has dec RLE stance time and dec push off PT-OP-J Posture/Palpation/Skin Start: 04/27/23 10:59 Freq: Status: Active Protocol: Document 07/20/23 10:37 [facility] (Rec: 07/20/23 11:22 [facility] [id number]) Posture Evaluation [facility] Postural Classification System Lumbar Protective Mechanism Left AP 2 Lumbar Protective Mechanism Right AP 2 Lumbar Protective Mechanism Left PA 2 Lumbar Protective Mechanism Right PA 2 PT-OP-K Range of Motion Start: 04/27/23 10:59 Freq: Status: Active Protocol: Document 05/11/23 08:20 [facility] (Rec: 05/11/23 09:07 [facility] [id number]) Knee Goniometric Range of Motion Knee Right Flexion Active (degrees) 114 Extension Active (degrees) 4 Comments ant strain w/ext & pull in HS w/flex Left Flexion Active (degrees) 124 Extension Active (degrees) 2 PT-OP-L Special Tests Start: 04/27/23 10:59 Freq: Status: Active Protocol: Document 05/11/23 08:20 [facility] (Rec: 05/11/23 09:07 [facility] [id number]) Special Tests Knee Special Tests Calvin Test Test Results neg but pt guards Thessaly Test 5 Degrees Test Results positive Apley's Compression Test Results neg PT-OP-M Strength Start: 04/27/23 10:59 Freq: Status: Active Protocol: Document 07/20/23 10:37 [facility] (Rec: 07/20/23 11:22 [facility] [id number]) Hip Strength Hip Manual Muscle Testing Right Flexion (L2) 4+ Good+ Extension (S1) 4 Good Abduction 4- Good- Adduction 4+ Good+ External Rotation 5 Normal Internal Rotation 4 Good Comments pain in hip w/abd Left Flexion (L2) 5 Normal Extension (S1) 4+ Good+ Abduction 4 Good Adduction 4+ Good+ External Rotation 4+ Good+ Internal Rotation 5 Normal Knee Strength Knee Manual Muscle Testing Right Flexion (S2) 5 Normal Extension (L3) 5 Normal Left Flexion (S2) 5 Normal Extension (L3) 5 Normal Ankle/Foot Strength Ankle and Foot Manual Muscle Testing Right Dorsiflexion (L4) 5 Normal Plantarflexion (S1) 5 Normal Inversion 5 Normal Eversion (S1) 5 Normal Left Dorsiflexion (L4) 5 Normal Plantarflexion (S1) 5 Normal Inversion 5 Normal Eversion (S1) 5 Normal Comments 20 heel raises B PT-OP-Q Treatments Start: 04/27/23 10:59 Freq: Status: Active Protocol: Document 08/24/23 09:44 [facility] (Rec: 08/24/23 10:36 [facility] [id number]) Cardio Equipment Recumbent Bicycle Duration (Minutes) 6 Resistance 11 Seat Position 3 Other 45 RPMs Gym Equipment Shuttle Balance Red clips Details balancing and wt shifts ea Comments fwd: WBOS, NBOS, Stride stance B (L fwd a/p weightshifts easier) side: WBOS Therapeutic Exercises Sidelying Exercises basking seal Sidelying Exercise Name drop of LEs off edge Side bilateral Reps/Minutes x10 ea Comments good form Standing Exercises SL slider Side bilateral Equipment Used slider, mirror Reps/Minutes 6 reps 3-4 clock position Comments cued tall over stance soft knee positioning, toes fwd hip hikes Standing Exercise Name on step w/rail Side bilateral Equipment Used 6 step, rail support Reps/Minutes x10 ea Comments pt reports feeling in hip calf stretch Standing Exercise Name HEP review- lunge stretch position Side bilateral Reps/Minutes 30 ea Comments pt reports usually stretches prior to ex but in the middle feels better. heel raises Standing Exercise Name SL Side bilateral Equipment Used finger support Reps/Minutes 2x5 ea Comments cue eccentric control w/ fatigue, less a/p weightshifting Neuro Re-Education Treatment Balance Activities SLS Reps/Duration 3 trials ea, 8-10s Comments SLS B improves w/ cue to start w/ finger touch proprioception then progress to handsfree. tandem Surface firm Comments walking 2x15ft Self-Care/Home Management Treatment Education Patient Education Home Exercise Program Other Education Pt has been stretching prior to ex and is edu on stretching after warm-up instead. She reports calf stretch feels better when performed after calf raises this session and is encouraged to continue at home, and can use walk for warmup prior to stretching. PT-OP-T Assessment and Plan Start: 04/27/23 10:59 Freq: Status: Active Protocol: Document 08/24/23 09:44 [facility] (Rec: 08/24/23 10:36 [facility] [id number]) Physical Therapy Assessment Goals activity Short Term Goal (STG) Pt will be able to sleep w/o inc pain in R knee or hip 06/10-reports sleeping better through the night but wakes up to go to the bathroom (normal amt of times)-pain when she wakes but less 06/22/23 - depends on how much activity at home 07/19-sometimes when wake up R hip is sore; knee less often 08/17/23: mostly sleep L and back, when wakes up on R about 1hr and lets her know still bothersome need adjust positioning. STG Duration slow progression 08/17/23 Pastry Chef Goal (LTG) Pt will be able go for walks and hikes w/o pain that day or the next day greater than 2/ 10. 06/10-has been getting in 2-3 walks a day still having pain some after. 06/22/23 - went for 5mi hike with 0/10 pain that day or the next. LTG Duration 08/03/23 - Goal met 06/22/23 LEFS Impairment 48/80 Short Term Goal (STG) Pt will show improved functional ability by improved score of LEFS to at least 53/ 80 06/10-n/t STG Duration achieved ot 58 07/19 Penitentiary Goal (LTG) Pt will show improved functional ability by improved score of LEFS to at least 60/ 80 07/19-58 LTG Duration 08/30 strength Short Term Goal (STG) Pt will be indep w/HEP STG Duration achieved advancing as able Pastry Chef Goal (LTG) Pt will score at least 4+/5 on BLE MMT w/o inc pain and at least 3/5 on LPM into all planes to shwo improved stability to allow pt to cont active lifestyle w/o inc pain. 2.8-improving 07/19-improved LTG Duration 08/30 balance Impairment SLS 5 sec R; 8 sec L Short Term Goal (STG) Pt will improve SLS to at least 10 sec B 06/10-8 sec R ; 12 sec L - achieved L improving R 06/15/23: 18s R, 10s L STG Duration achieved 06/15 Pastry Chef Goal (LTG) Pt will improve SLS to at least 15 sec B 07/19-6 sec B 08/17/23: opp LE foot front: LLE 9, 10 sec, RLE 4, 13 sec LTG Duration 08/31/23 progression 08/17/23 Assessment Summary Assessment End of session Ruthann reports likely ready to discharge at next and last scheduled visit as per previous discussion w/ PT. Treatment focus on balance and HEP review. Pt has been stretching prior to ex and is edu on stretching after warm- up instead. She reports calf stretch feels better when performed after calf raises this session and is encouraged to continue at home, and can use walk for warmup prior to stretching. She requires minimal cues for HEP, and is challenged to hold SLS >10 seconds today after recumbent elliptical warmup. Physical Therapy Plan Frequency and Duration Frequency of Treatment 1x/Week Duration of treatment (weeks) 6 Plan of Care Start Date 07/20/23 Plan of Care End Date 08/31/23 Therapeutic Interventions Therapeutic Interventions Balance Training,Gait Training ,Home Exercise Program,Joint Mobilizations,Manual Therapy, Neuromuscular Re-education, Orthotic/Prosthetic Management ,Patient/Caregiver Education, Self-Care/Home Management,Soft Tissue Mobilization,Taping, Therapeutic Activities, Therapeutic Exercises Modalities Cold Pack/Ice Massage,Electric Stimulation,Hot Packs, Infrared Therapy,Ultrasound Next Visit Focus/Plan Next Note Type Treatment Note Next Visit Plan Pt indicates they may be ready for D/C next visit. Continue SL progression for safety in yard.
--- NOTE | 2023-08-31 10:37 | PT.OTN ---
Current Diagnoses Pain in right hip (08/31/23) Pain in right knee (08/31/23) Muscle weakness (generalized) (08/31/23) Difficulty in walking, not elsewhere classified (08/31/23) Abnormal posture (08/31/23) Physical Therapy Treatment Note PT-OP-A Visit Information Start: 04/27/23 10:59 Freq: Status: Active Protocol: Document 08/31/23 09:52 [facility] (Rec: 08/31/23 10:37 [facility] [id number]) Out-Patient Physical Therapy Visit Information Visit Information Visit Type Discharge Summary Visit Start Time 09:51 Visit Stop Time 10:30 Visit Number 19 Number of HARDWARE INSTALLER Visits 0 PT-OP-B Current Condition Start: 04/27/23 10:59 Freq: Status: Active Protocol: Document 05/11/23 08:20 [facility] (Rec: 05/11/23 09:07 [facility] [id number]) Current Condition History of Current Condition Onset Date 6 months ago Current Complaints R knee pain History of Current Condition Pt had R knee pain that her doctor gave her exercsies for about 10 to 12 years ago and it was better. She lost exercises. Its so painful that it wakes her at night. IT feels ok whens he goes to bed. It gets sore when she sits or stands a lot. She has been trying to go to [facility] but soem of the exercises bother her. She likes to garden on her knees. Pt tries to go for a walk everday [place] seh thinks that helps. [place] is harder than downhill. She is in a hiking group and it feels ok while hiking but she pays for it the next day. Denies swelling. Pt notes she feels like she has to lose weight. She is limiting most things. She takes ibuprofen when she hikes or after or when she needs and it helps. Does have problems in past w/ plantar fascitis and has store bought insoles and is particular w/ shoes. Pt notes buttocks pain that happens when the knee gets pretty back. Once in a while she gets back painb ut notes she tends to lift things that she should not like a wheel [place]. Treatment Goals Patient/Caregiver Goals be able to garden when it is time, be able to do walks w/o pain, be able to do exercises at home and gym w/o pain PT-OP-C Subjective Start: 04/27/23 10:59 Freq: Status: Active Protocol: Document 08/31/23 09:52 [facility] (Rec: 08/31/23 10:37 [facility] [id number]) OP-PT Subjective Patient Comments Patient Comments Pt reports pain at 1-2/10 in R hip but otherwsie does well. Can walk and ice to help it PT-OP-D Balance Start: 04/27/23 10:59 Freq: Status: Active Protocol: Document 05/11/23 08:20 [facility] (Rec: 05/11/23 09:07 [facility] [id number]) Balance Tests Single Limb Standing Single Limb- Right 5 sec Single Limb- Left 8 sec PT-OP-F Manual Assessment Start: 04/27/23 10:59 Freq: Status: Active Protocol: Document 05/11/23 08:20 [facility] (Rec: 05/11/23 09:07 [facility] [id number]) Manual Assessments Joint Mobility Assessment Joint Mobility Assessment IR B femur and IR w/ squat; LLE turned out PT-OP-G Mobility & Gait Start: 04/27/23 10:59 Freq: Status: Active Protocol: Document 05/11/23 08:20 [facility] (Rec: 05/11/23 09:07 [facility] [id number]) OP Gait Assessment Comments Gait Comments comes down hard on RLE and has dec RLE stance time and dec push off PT-OP-J Posture/Palpation/Skin Start: 04/27/23 10:59 Freq: Status: Active Protocol: Document 08/31/23 09:52 [facility] (Rec: 08/31/23 10:37 [facility] [id number]) Posture Evaluation [facility] Postural Classification System Lumbar Protective Mechanism Left AP 2 Lumbar Protective Mechanism Right AP 2 Lumbar Protective Mechanism Left PA 3 Lumbar Protective Mechanism Right PA 2 PT-OP-K Range of Motion Start: 04/27/23 10:59 Freq: Status: Active Protocol: Document 05/11/23 08:20 [facility] (Rec: 05/11/23 09:07 [facility] [id number]) Knee Goniometric Range of Motion Knee Right Flexion Active (degrees) 114 Extension Active (degrees) 4 Comments ant strain w/ext & pull in HS w/flex Left Flexion Active (degrees) 124 Extension Active (degrees) 2 PT-OP-L Special Tests Start: 04/27/23 10:59 Freq: Status: Active Protocol: Document 05/11/23 08:20 [facility] (Rec: 05/11/23 09:07 [facility] [id number]) Special Tests Knee Special Tests Calvin Test Test Results neg but pt guards Thessaly Test 5 Degrees Test Results positive Apley's Compression Test Results neg PT-OP-M Strength Start: 04/27/23 10:59 Freq: Status: Active Protocol: Document 08/31/23 09:52 [facility] (Rec: 08/31/23 10:37 [facility] [id number]) Hip Strength Hip Manual Muscle Testing Right Flexion (L2) 5 Normal Extension (S1) 4 Good Abduction 4- Good- Adduction 5 Normal External Rotation 5 Normal Internal Rotation 4+ Good+ Comments pain in hip w/ir Left Flexion (L2) 5 Normal Extension (S1) 4+ Good+ Abduction 4+ Good+ Adduction 5 Normal External Rotation 5 Normal Internal Rotation 5 Normal Knee Strength Knee Manual Muscle Testing Right Flexion (S2) 5 Normal Extension (L3) 5 Normal Left Flexion (S2) 5 Normal Extension (L3) 5 Normal Ankle/Foot Strength Ankle and Foot Manual Muscle Testing Right Dorsiflexion (L4) 5 Normal Plantarflexion (S1) 5 Normal Inversion 5 Normal Eversion (S1) 5 Normal Left Dorsiflexion (L4) 5 Normal Plantarflexion (S1) 5 Normal Inversion 5 Normal Eversion (S1) 5 Normal Comments 20 heel raises B PT-OP-Q Treatments Start: 04/27/23 10:59 Freq: Status: Active Protocol: Document 08/31/23 09:52 [facility] (Rec: 08/31/23 10:37 [facility] [id number]) Therapeutic Exercises Supine Exercises clamshell Side bilateral Equipment Used teal loop Reps/Minutes 12 Comments cues core Core Supine Exercise Name DL isometric Side bilateral Reps/Minutes 30 sec Standing Exercises SLS Standing Exercise Name trials Side bilateral hip ext Standing Exercise Name hip hinge to wt bear onto forearms Side bilateral Equipment Used teal loop Reps/Minutes 15 Comments cues core sit to stand Side bilateral Equipment Used band at knees Reps/Minutes 12 Comments cues for hip hinge sidesteps Side bilateral Resistance teal loop Reps/Minutes 15ft ea Comments cues slow eccentric control for safety trail LE clearance Other Exercises up/down from ground Reps/Minutes 3 min Comments work on bear stand isometrics Other Exercise Name MMT and LPM testing Side bilateral Manual Therapy Treatment Soft Tissue Mobilization piriformis Body Location R & glute Mobilization Type Sustained Pressure Intensity/Depth Moderate Body Position Sidelying Comments w/hip IR, manual stretch. Joint Mobilizations hip Joint R abd FM PT-OP-T Assessment and Plan Start: 04/27/23 10:59 Freq: Status: Active Protocol: Document 08/31/23 09:52 [facility] (Rec: 08/31/23 10:37 [facility] [id number]) Physical Therapy Assessment Goals activity Short Term Goal (STG) Pt will be able to sleep w/o inc pain in R knee or hip 06/10-reports sleeping better through the night but wakes up to go to the bathroom (normal amt of times)-pain when she wakes but less 06/22/23 - depends on how much activity at home 07/19-sometimes when wake up R hip is sore; knee less often 08/17/23: mostly sleep L and back, when wakes up on R about 1hr and lets her know still bothersome need adjust positioning. STG Duration most of the time good but if sleep on R inc pain but goes away walking arou Correction Goal (LTG) Pt will be able go for walks and hikes w/o pain that day or the next day greater than 2/ 10. 06/10-has been getting in 2-3 walks a day still having pain some after. 06/22/23 - went for 5mi hike with 0/10 pain that day or the next. LTG Duration 08/03/23 - Goal met 06/22/23 LEFS Impairment 48/80 Short Term Goal (STG) Pt will show improved functional ability by improved score of LEFS to at least 53/ 80 06/10-n/t STG Duration achieved ot 58 07/19 Correction Goal (LTG) Pt will show improved functional ability by improved score of LEFS to at least 60/ 80 07/19-58 LTG Duration achieved to 60/80 strength Short Term Goal (STG) Pt will be indep w/HEP STG Duration achieved advancing as able Correction Goal (LTG) Pt will score at least 4+/5 on BLE MMT w/o inc pain and at least 3/5 on LPM into all planes to shwo improved stability to allow pt to cont active lifestyle w/o inc pain. 2.8-improving 07/19-improved LTG Duration improved and will cont HEP balance Impairment SLS 5 sec R; 8 sec L Short Term Goal (STG) Pt will improve SLS to at least 10 sec B 06/10-8 sec R ; 12 sec L - achieved L improving R 06/15/23: 18s R, 10s L STG Duration achieved 06/15 Correction Goal (LTG) Pt will improve SLS to at least 15 sec B 07/19-6 sec B 08/17/23: opp LE foot front: LLE 9, 10 sec, RLE 4, 13 sec 08/30-L 17 sec, R 18 sec LTG Duration achieved 08/30 Assessment Summary Assessment Pt has improved in balance, gait, strength and mobility with PT. She has still some mild pain and weakness but it is overall much improved and pt indep w/HEP. Pt d/c to HEP at this time w/most goals met or excellent progress towards goal. Physical Therapy Plan Discharge Physical Therapy Discharge Reasons Goals Met
== END 2023-08-31 14:03 | disposition home or self-care (01) ==
LOC: PHYS 09:45
PROVIDERS: Family Provider Nurse Practitioner; PCP Nurse Practitioner; Referring Provider Nurse Practitioner; Visit Provider Nurse Practitioner
DX: M25.561 Pain in right knee (principal); M25.551 Pain in right hip; M62.81 Muscle weakness (generalized); R26.2 Difficulty in walking, not elsewhere classified; R29.3 Abnormal posture
CPT/HCPCS: 97110; 97112; 97116; 97140; 97162; 97530

== ENCOUNTER 2023-10-10 09:53 | Emergency (ER) | payer MEDICARE, SELFPAY ==
[2023-10-10 10:02] VITALS: BP 173/73; PULSE 69; RESP 16; TEMP 36.6; O2SAT 100; BMI 31.7
--- NOTE | 2023-10-10 10:02 | DI.RAD.S_ITS ---
PROCEDURE: XR CHEST 1V INDICATIONS: chest pain TECHNIQUE: One view of the chest was acquired. COMPARISON: None. FINDINGS: Surgical changes and devices: Cholecystectomy clips are seen. Lungs and pleura: Lungs are clear. No pleural effusions or pneumothorax. Mediastinum: Mediastinal contours appear normal. Heart size is normal. Atherosclerotic calcification of the aortic arch is noted. Bones and chest wall: No suspicious bony lesions. Age-appropriate bony degenerative changes are seen. Overlying soft tissues appear unremarkable. IMPRESSION: Portable chest within normal limits for age. Postoperative and degenerative changes are seen. Dictated by: Lester ePrea M.D. on 10/10/2023 at 9:34 Approved by: Lester Perea M.D. on 10/10/2023 at 9:35
[2023-10-10] MEDS: ASPIRIN 81 MG CHEW TAB 324 MG PO (10:08)
[2023-10-10 10:09] LABS: Add Manual Diff / Slide Review NO; Basophils Absolute Auto 100 /uL (0-100); Basophils Percent Auto 0.8 % (0-2); Eosinophils Absolute Auto 100 /uL (0-450); Eosinophils Percent Auto 1.2 % (2-4); Hematocrit 40.7 % (36-46); Hemoglobin 13.6 g/dL (12.0-16.0); Lymphocytes Absolute Auto 2800 /uL (1100-4500); Lymphocytes Percent Auto 40.1 % (25-40); Mean Corpuscular HGB Conc 33.5 % (30-36); Mean Corpuscular Hemoglobin 29.2 PG (26-34); Monocytes Absolute Auto 500 /uL (0-900); Monocytes Percent Auto 7.7 % (3-14); Neutrophils Absolute Auto 3500 /uL (1500-7000); Neutrophils Percent Auto 50.2 % (50-75); Platelet Count 304 X10^3/uL (150-400); Red Blood Cell Count 4.68 X10^6/uL (4.0-5.2); Red Cell Distribution Width 12.9 % (11.6-14.8); White Blood Cell Count 6.9 X10^3/uL (4.5-11.0)
[2023-10-10 10:17] LABS: Prothrombin Time 11.5 SECONDS (9.4-12.5)
[2023-10-10 10:20] LABS: PTT Partial Thromboplastin Tim 46 SECONDS (25.1-36.5)
[2023-10-10 10:22] LABS: Alanine Aminotransferase 15 IU/L (<35); Albumin 4.2 g/dL (3.5-5.0); Albumin Globulin Ratio 1.4 (1.0-2.8); Alkaline Phosphatase 60 U/L (38-126); Aspartate Aminotransferase 22 IU/L (14-36); BUN Creatinine Ratio 18.9 (6-22); Bilirubin Total 0.6 mg/dL (0.2-1.3); Blood Urea Nitrogen 18 mg/dL (7-17); Calcium 8.9 mg/dL (8.4-10.2); Carbon Dioxide 29 mmol/L (22-32); Chloride 103 mmol/L (98-107); Creatine Kinase 69 U/L (30-135); Estimated Glomerular Filt Rate > 60 mL/min (>60); Glucose 129 mg/dL (80-110); HEMOLYSIS < 15 (0-50); Lipase 120 U/L (23-300); Magnesium 2.3 mg/dL (1.6-2.3); Sodium 136 mmol/L (137-145); Total Protein 7.2 g/dL (6.3-8.2)
[2023-10-10] MEDS: SODIUM CHLORIDE 0.9% 1,000 ML 1000 ML IV (10:29)
[2023-10-10 10:34] LABS: Troponin I < 0.012 ng/mL (0.01-0.034)
--- NOTE | 2023-10-10 11:01 | ED.CHESTPAIN ---
HPI - Chest Pain General Chief Complaint: Chest Pain Stated Complaint: Syncope Time Seen by Provider: 10/10/23 10:14 Source: patient and EMS Mode of arrival: EMS History of Present Illness HPI narrative: Patient 78-year-old female without significant past medical history presenting today with a syncopal episode. She reports that she was [facility] [employer] she was standing she felt like she might pass out and then she did. Bystanders report that she may have been out for about 4 minutes. Never lost pulses. EMS report that she had positive orthostatics glucose was in the 130s. Patient says that this does happen to her on occasion. She has previously had a Holter monitor over 20 ago. She denies any sort of chest pain or palpitations. No numbness tingling or weakness. She says that she worked out in the garden a lot the last couple of days during the hot weather. She has been trying to drink water. She has feeling a bit better. Related Data Home Medications Medication Instructions Recorded Confirmed No Known Home Medications 10/04/23 10/04/23 Allergies Allergy/AdvReac Type Severity Reaction Status Date / Time meperidine [From Demerol] AdvReac Mild nightmares Verified 10/10/23 10:09 Patient History Medical History History of syncope History of panic attacks History of anxiety Social History Smoking Status: Never smoker Smoking Status: Never smoker alcohol intake frequency: a few times a month Substance Use Type: does not use Exam Initial Vital Signs Initial Vital Signs: Vital Signs Temperature 97.8 F 10/10/23 10:02 Pulse Rate 69 10/10/23 10:02 Respiratory Rate 16 10/10/23 10:02 Blood Pressure 173/73 H 10/10/23 10:02 Pulse Oximetry 100 10/10/23 10:02 Oxygen Delivery Method Room Air 10/10/23 10:02 GENERAL: Alert 78-year-old female and in no acute distress. HEENT: Head atraumatic,EOMI, pupils reactive, face symmetric, moist mucous membranes CARDIOVASCULAR: Regular rate and rhythm without murmurs, rubs or gallops. RESPIRATORY: Breath sounds equal bilaterally, no wheezes rales or rhonchi. ABDOMEN: Soft, nontender. Normoactive bowel sounds all 4 quadrants. No guarding or rebound. EXTREMITIES: Normal range of motion, no clubbing or edema. Neurovascularly intact NEUROLOGICAL: Alert and oriented x4.Normal gait and speech. Cranial nerves II through XII grossly intact. SKIN: Warm, dry, no laceration, no petechiae, no rashes or lesions. Scores NIH Stroke Scale Level of Conciousness: Alert, keenly responsive Ask month/age: Answers both questions correctly. Open/close eyes, close hand: Performs both tasks correctly Best gaze horizontal: Normal Visual cherry: No visual loss Facial palsy: Normal symetrical movement Left arm drift: No drift for full 10 sec Right arm drift: No drift for full 10 sec Left leg drift: No drift for full 5 sec Right leg drift: No drift for full 5 sec Limb ataxia: Absent Sensory on face/arms/legs: Normal, no sensory loss Best language: No aphasia, normal Dysarthria: Normal Extinction or inattention: No abnormality Total NIH Stroke scale score: 0 Course Orders Ordered: ED Orders 10/10/23 09:55 Complete Blood Count AUTO DIFF Stat Comprehensive Metabolic Panel Stat Lipase Stat Magnesium Stat PTT Partial Thromboplastin Atul Stat Prothrombin Time INR Stat Troponin & CK Cardiac Panel Stat 10/10/23 10:02 XR chest 1V Stat EKG-12 Lead Stat 10/10/23 11:58 Urinalysis and Microscopic Stat Discontinued Medications Aspirin (Aspirin 81 Mg Chew Tab) 324 mg PO NOW ONE Stop: 10/10/23 10:02 Last Admin: 10/10/23 10:08 Dose: 324 mg Documented By: Sodium Chloride (Normal Saline 0.9%) 1,000 mls @ 1,000 mls/hr IV BOLUS ONE Stop: 10/10/23 11:13 Last Infusion: 10/10/23 11:59 Dose: Infused Documented By: Admin: 10/10/23 10:29 Dose: 1,000 mls/hr Documented By: Vital Signs Vital signs: Vital Signs - 8 hr 10/10/23 10:02 10/10/23 12:21 Temperature 97.8 F Pulse Rate 69 66 Respiratory Rate 16 18 Blood Pressure 173/73 H 189/86 H Pulse Oximetry 100 99 Oxygen Delivery Method Room Air Room Air MDM - Chest Pain Lab Data 10/10/23 09:55 10/10/23 09:55 Labs: Lab Results 10/10/23 10/10/23 Range/Units 09:55 11:58 WBC 6.9 (4.5-11.0) X10^3/uL RBC 4.68 (4.0-5.2) X10^6/uL Hgb 13.6 (12.0-16.0) g/dL Hct 40.7 (36-46) % MCV 87.0 (80-100) fL MCH 29.2 (26-34) PG MCHC 33.5 (30-36) % RDW 12.9 (11.6-14.8) % Plt Count 304 (150-400) X10^3/uL Neut % (Auto) 50.2 (50-75) % Lymph % (Auto) 40.1 H (25-40) % Creek % (Auto) 7.7 (3-14) % Eos % (Auto) 1.2 L (2-4) % Baso % (Auto) 0.8 (0-2) % Neut # (Auto) 3500 (1864-6056) /uL Lymph # (Auto) 2800 (6486-5812) /uL [place] # (Auto) 500 (0-900) /uL Eos # (Auto) 100 (0-450) /uL Baso # (Auto) 100 (0-100) /uL PT 11.5 (9.4-12.5) SECONDS INR 1.0 (0.9-1.3) APTT 46 H (25.1-36.5) SECONDS Sodium 136 L (137-145) mmol/L Potassium 4.0 (3.4-5.1) mmol/L Chloride 103 (98-107) mmol/L Carbon Dioxide 29 (22-32) mmol/L BUN 18 H (7-17) mg/dL Creatinine 0.95 (0.52-1.04) mg/dL Estimated GFR > 60 (>60) mL/min BUN/Creatinine Ratio 18.9 (6-22) Glucose 129 H (80-110) mg/dL Calcium 8.9 (8.4-10.2) mg/dL Magnesium 2.3 (1.6-2.3) mg/dL Total Bilirubin 0.6 (0.2-1.3) mg/dL AST 22 (14-36) IU/L ALT 15 (<35) IU/L Alkaline Phosphatase 60 (38-126) U/L Total Creatine Kinase 69 (30-135) U/L Troponin I < 0.012 (0.01-0.034) ng/mL Total Protein 7.2 (6.3-8.2) g/dL Albumin 4.2 (3.5-5.0) g/dL Globulin 3.0 (1.7-4.1) g/dL Albumin/Globulin Ratio 1.4 (1.0-2.8) Lipase 120 (23-300) U/L Urine Color Yellow Urine Appearance Clear Urine pH 7.0 (4.5-8.0) Ur Specific [place] 1.010 (1.000-1.035) Urine Protein Negative (Negative) Urine Glucose (UA) Negative (Negative) g/dL Urine Ketones Negative (NEGATIVE) Urine Occult Blood Negative (Negative) Urine Nitrate Negative (Negative) Urine Bilirubin Negative (NEGATIVE) Urine Urobilinogen 0.2 (0.2) E.U./dL Ur Leukocyte Esterase Negative (NEGATIVE) Urine RBC None seen (0-5/HPF) Urine WBC None seen (0-5/HPF) Ur Squamous Epith Cells 0-1 /hpf (0-5/HPF) Urine Bacteria None seen (None) Ur Culture Indicated? Cult not indicated Vol Urine Centrifuged 10ml (spun) Imaging Data Chest x-ray: Radiologist's Impression: PROCEDURE: XR CHEST 1V INDICATIONS: chest pain TECHNIQUE: One view of the chest was acquired. COMPARISON: None. FINDINGS: Surgical changes and devices: Cholecystectomy clips are seen. Lungs and pleura: Lungs are clear. No pleural effusions or pneumothorax. Mediastinum: Mediastinal contours appear normal. Heart size is normal. Atherosclerotic calcification of the aortic arch is noted. Bones and chest wall: No suspicious bony lesions. Age-appropriate bony degenerative changes are seen. Overlying soft tissues appear unremarkable. IMPRESSION: Portable chest within normal limits for age. Postoperative and degenerative changes are seen. Dictated by: Lester Perea M.D. on 10/10/2023 at 9:34 ECG Data Attestation: I personally reviewed and interpreted this ECG as follows: Interpretation: Normal sinus rate 66 VA interval 158 QRS [address] changes MDM Narrative Medical decision making narrative: Patient is a 78-year-old female presenting today with syncopal episode while at [employer]. No focal deficits. Not on anticoagulation. Blood work has been reviewed WBC 6.9, hemoglobin 13.6, hematocrit 40.7, platelets 304 sodium 136, potassium 4.0, chloride 103, carbon dioxide 29, BUN 18, creatinine 0.95, AST 22, ALT 15, alk-phos 60 troponin negative Chest x-ray reviewed no acute cardiopulmonary process EKG reviewed Patient presents after syncopal episode while at [employer]. No obvious cause why. Workup in the emergency department is negative. Mildly dehydrated with a BUN of 18 but creatinine within normal limits. She had a L of fluid overall feeling significantly better. She ambulated in the ED without any problems. Suspected orthostatic vasovagal. Discharge Plan Departure Patient Disposition: Home Clinical Impression: Syncope Instructions: DI for Syncope in Adults (Fainting) Activity Restrictions/Additional Instructions: *You have been diagnosed with fainting *What to do: At this time you may require further monitoring such as Holter monitor. Please stay hydrated take breaks go in the shape *Continue to take medications as directed *Follow up with your primary care provider in 2-3 days or call [phone] *Return to ER if you should have recurrent episode of passing out chest pain shortness of or any new, worsening or concerning symptoms Prescriptions: No Action No Known Home Medications Referrals: Gabrielle Paige ARNP [Primary Care Provider] - Stand Alone Forms: Patient Portal/API
[2023-10-10 12:21] VITALS: BP 189/86; PULSE 66; RESP 18; O2SAT 99
[2023-10-10 12:58] LABS: Appearance Urine UA CLEAR; Bilirubin Urine UA NEGATIVE (NEGATIVE); Color Urine UA YELLOW; Glucose Urine UA NEGATIVE (Negative); Ketones Urine UA NEGATIVE (NEGATIVE); Leukocyte Esterase Urine UA NEGATIVE (NEGATIVE); Nitrite Urine UA NEGATIVE (Negative); Occult Blood Urine UA NEGATIVE (Negative); Protein Urine UA NEGATIVE (Negative); Urobilinogen Urine UA 0.2 E.U./dL (0.2)
[2023-10-10 13:34] LABS: Bacteria Urine None Seen; Culture Indicated Urine Cult Not Indicated; RBC Urine None Seen (0-5/HPF); Squamous Epithelial Cell Urine 0-1 /HPF (0-5/HPF); Urine Volume 10mL (spun); WBC Urine None Seen (0-5/HPF)
== END 2023-10-10 12:22 | disposition home or self-care (01) ==
PROVIDERS: Emergency Provider Emergency Medicine; Family Provider Nurse Practitioner; PCP Nurse Practitioner
DX: R55 Syncope and collapse (principal)
CPT/HCPCS: 36415; 71045; 80053; 81001; 82550; 83690; 83735; 84484; 85025; 85610; 85730; 93005; 93010; 99284

== ENCOUNTER → 2023-10-12 12:52 | Outpatient (CLI) | payer MEDICARE, SELFPAY ==
--- NOTE | 2023-10-12 12:54 | DI.MG.S_ITS ---
BILATERAL DIGITAL SCREENING MAMMOGRAM 3D/2D WITH CAD: 10/12/2023 CLINICAL: Routine screening. Comparison is made to exam dated: 01/09/2012 mammogram - outside location. There are scattered areas of fibroglandular density in both breasts (category b / 25%-50% glandular tissue). Current study was also evaluated with a Computer Aided Detection (CAD) system. No significant masses, calcifications, or other findings are seen in either breast. There has been no significant interval change. IMPRESSION: NEGATIVE There is no mammographic evidence of malignancy. A 1 year screening mammogram is recommended. Based on the Tyrer Cuzick model (a risk assessment model) the patient's lifetime risk is 2.1% and her 10 year risk is 0.0%. According to the ACR, ACS, and NCCN guidelines, an annual breast MRI exam along with mammogram is recommended if the patient's lifetime risk is 20% or greater. This exam was interpreted at Station ID: [id number]. NOTE: For mammograms, a report in lay terms will be sent to the patient. Approximately 15% of breast malignancies will not be visualized mammographically. In the management of a palpable breast mass, a negative mammogram must not discourage biopsy of a clinically suspicious lesion. Electronically Signed By: Dorothea Yee M.D., Ph.D. garland/sarah beth:10/18/2023 16:08:07 letter sent: Normal Exam ACR BI-RADS Category 1: Negative 3341F
--- NOTE | 2023-10-12 12:54 | DI.RAD.S_ITS ---
PROCEDURE: XR HIP W PEL IF DONE RT 2V INDICATIONS: right hip pain TECHNIQUE: 2 views of the hip were acquired. COMPARISON: None. FINDINGS: Bones: No fractures or dislocations. No suspicious bony lesions. The visualized pelvic ring appears intact. Mild nonuniform joint space narrowing with osteophytic lipping of the acetabulum. Soft tissues: No suspicious soft tissue calcifications or masses. IMPRESSION: Mild hip osteoarthritis. Dictated by: Colin Landry M.D. on 10/12/2023 at 15:13 Approved by: Colin Landry M.D. on 10/12/2023 at 15:13
--- NOTE | 2023-10-12 14:30 | DI.RAD.S_ITS ---
PROCEDURE: XR DEXA AXIAL SKELETON INDICATIONS: post menopausal osteoporosis COMPARISON: None. FINDINGS: Lumbar Spine: Bone mineral density is 0.944 g/cm2, T score -9, normal. Left Hip: Bone mineral density 0.843 g/cm2, T score -0.8, normal. Left Femoral Neck: Bone mineral density is 0.719 g/cm2, T score -1.2, osteopenia. Right Hip: Bone mineral density is 0.855 g/cm2, T score -0.7, normal. Right Femoral Neck: Bone mineral density 0.756 g/cm2, T score -0.8, normal. Fracture Risk Calculation (when applicable): 10-year fracture risk of a major osteoporotic fracture 20 and of a hip fracture 9.9. (T score greater or equal to -1.0 to: NORMAL) (T score from -1.1 to -2.4: OSTEOPENIA) (T score less than or equal to -2.5: OSTEOPOROSIS) IMPRESSION: Osteopenia. Follow-up guidelines as follows: Osteoporosis: Consider a repeat DEXA and Vertebral Fracture Assessment (VFA) exam in 2 years or sooner if medically necessary, to reassess this patient's status. Osteopenia: Consider a repeat DEXA in 2-3 years to reassess this patient's status, or if there is a new clinical indication. Normal: Consider a repeat DEXA in 5 years or sooner, or if there is a new clinical indication. All treatment decisions require clinical judgment and consideration of individual patient factors, including patient preferences, comorbidities, previous drug use, risk factors not captured in the FRAX model (e.g., frailty, falls, vitamin D deficiency, increased bone turnover, interval significant decline in bone density ) and possible under- or over-estimation of fracture risk by FRAX. In addition, the NOF Guide recommends that FDA-approved medical therapies be considered in postmenopausal women and men age >= 50 years with a: * Hip or vertebral (clinical or morphometric) fracture * T-score of <=-2.5 at the spine or hip * Ten-year fracture probability by FRAX of >= 3% for hip fracture or >=20% for major osteoporotic fracture. People with diagnosed cases of osteoporosis or at high risk for fracture should have regular bone mineral density tests. For patients eligible for Medicare, routine testing is allowed once every 2 years. The testing frequency can be increased to one year for patients who have rapidly progressing disease, those who are receiving or discontinuing medical therapy to restore bone mass, or have additional risk factors. Dictated by: Colin Landry M.D. on 10/12/2023 at 17:04 Approved by: Colin Landry M.D. on 10/12/2023 at 17:05
[2023-10-12 14:49] LABS: Add Manual Diff / Slide Review NO; Basophils Absolute Auto 100 /uL (0-100); Basophils Percent Auto 1.7 % (0-2); Eosinophils Absolute Auto 100 /uL (0-450); Hematocrit 37.4 % (36-46); Hemoglobin 12.7 g/dL (12.0-16.0); Lymphocytes Absolute Auto 1600 /uL (1100-4500); Mean Corpuscular Hemoglobin 29.3 PG (26-34); Mean Corpuscular Volume 86.1 fL (80-100); Monocytes Absolute Auto 300 /uL (0-900); Monocytes Percent Auto 5.4 % (3-14); Neutrophils Absolute Auto 3800 /uL (1500-7000); Neutrophils Percent Auto 63.9 % (50-75); Platelet Count 299 X10^3/uL (150-400); Red Blood Cell Count 4.35 X10^6/uL (4.0-5.2); Red Cell Distribution Width 12.9 % (11.6-14.8)
[2023-10-12 15:01] LABS: Alanine Aminotransferase 14 IU/L (<35); Albumin 4.1 g/dL (3.5-5.0); Albumin Globulin Ratio 1.5 (1.0-2.8); Alkaline Phosphatase 59 U/L (38-126); Aspartate Aminotransferase 22 IU/L (14-36); BUN Creatinine Ratio 21.6 (6-22); Bilirubin Total 0.5 mg/dL (0.2-1.3); Blood Urea Nitrogen 21 mg/dL (7-17); Calcium 8.8 mg/dL (8.4-10.2); Carbon Dioxide 30 mmol/L (22-32); Chloride 101 mmol/L (98-107); Estimated Glomerular Filt Rate 59 mL/min (>60); Globulin 2.7 g/dL (1.7-4.1); Glucose 99 mg/dL (80-110); HEMOLYSIS < 15 (0-50); Potassium 4.2 mmol/L (3.4-5.1); Sodium 135 mmol/L (137-145); Total Protein 6.8 g/dL (6.3-8.2)
[2023-10-12 15:16] LABS: Free T3, Triiodothyronine Free 3.52 pg/mL (2.77-5.27); Free T4, Direct Thyroxine 1.12 ng/dL (0.78-2.19)
[2023-10-12 15:29] LABS: Thyroid Stimulating Hormone 0.439 uIU/mL (0.47-4.68)
[2023-10-12 17:28] LABS: Hep C Virus Ab w/Reflex Quant NEGATIVE s/c (NEGATIVE)
== END ==
PROVIDERS: Family Provider Nurse Practitioner; PCP Nurse Practitioner; Referring Provider Nurse Practitioner; Visit Provider Nurse Practitioner
DX: Z12.31 Encounter for screening mammogram for malignant neoplasm of breast (principal); R92.323 Mammographic fibroglandular density, bilateral breasts; M25.551 Pain in right hip; R53.83 Other fatigue; M81.0 Age-related osteoporosis without current pathological fracture; Z86.59 Personal history of other mental and behavioral disorders; Z87.898 Personal history of other specified conditions
CPT/HCPCS: 36415; 73502; 77063; 77067; 77080; 80053; 84439; 84443; 84481; 85025; 86803

== ENCOUNTER → 2023-11-17 09:40 | Outpatient (CLI) | payer MEDICARE, SELFPAY | LOC: CAR 09:41 | PROVIDERS: Family Provider Nurse Practitioner; PCP Nurse Practitioner; Referring Provider Nurse Practitioner; Visit Provider Nurse Practitioner | DX: R55 Syncope and collapse (principal); R00.0 Tachycardia, unspecified | CPT/HCPCS: 93246 ==

== ENCOUNTER → 2024-10-19 08:17 | Outpatient (CLI) | payer MEDICARE, SELFPAY ==
[2024-10-19 08:41] LABS: Hematocrit 39.5 % (36-46); Hemoglobin 13.3 g/dL (12.0-16.0); Mean Corpuscular HGB Conc 33.6 % (30-36); Mean Corpuscular Hemoglobin 29.3 PG (26-34); Mean Corpuscular Volume 87.3 fL (80-100); Platelet Count 286 X10^3/uL (150-400); Red Blood Cell Count 4.53 X10^6/uL (4.0-5.2); Red Cell Distribution Width 13.1 % (11.6-14.8); White Blood Cell Count 5.6 X10^3/uL (4.5-11.0)
[2024-10-19 09:30] LABS: BUN Creatinine Ratio 21.3 (6-22); Blood Urea Nitrogen 17 mg/dL (7-17); Calcium 9.2 mg/dL (8.4-10.2); Carbon Dioxide 29 mmol/L (22-32); Chloride 99 mmol/L (98-107); Cholesterol 193 mg/dL (140-199); Estimated Glomerular Filt Rate > 60 mL/min (>60); Glucose 78 mg/dL (70-99); HDL Cholesterol 105 mg/dL (40-60); HEMOLYSIS < 15 (0-50); LDL Cholesterol Calculated 72 mg/dL (<100); Potassium 4.4 mmol/L (3.4-5.1); Sodium 133 mmol/L (137-145); Triglycerides 80 mg/dL (35-150)
[2024-10-19 10:00] LABS: TSH w/ Reflex to FT4 0.75 uIU/mL (0.47-4.68)
== END ==
PROVIDERS: PCP Nurse Practitioner Family; Referring Provider Nurse Practitioner Family; Visit Provider Nurse Practitioner Family
DX: I10 Essential (primary) hypertension (principal); Z13.220 Encounter for screening for lipoid disorders; R79.89 Other specified abnormal findings of blood chemistry
CPT/HCPCS: 36415; 80048; 80061; 84443; 85027

== ENCOUNTER 2025-04-24 09:20 | Emergency (ER) | payer MEDICARE, SELFPAY ==
[2025-04-24] VITALS (40 sets, daily range): BP systolic 97–217; BP diastolic 51–102; PULSE 57–79; RESP 14–33; TEMP 37.4; O2SAT 90–99; BMI 29.2
--- NOTE | 2025-04-24 09:30 | EKG_ITS ---
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
--- NOTE | 2025-04-24 09:36 | DI.RAD.S_ITS ---
PROCEDURE: XR CHEST 1V INDICATIONS: Chest Pain TECHNIQUE: One view of the chest was acquired. COMPARISON: [facility], CR, XR CHEST 1V, 10/10/2023, 10:10. FINDINGS: Surgical changes and devices: None. Lungs and pleura: Lungs are clear. No pleural effusions or pneumothorax. Mediastinum: Mediastinal contours appear normal. Heart size is normal. Bones and chest wall: No suspicious bony lesions. Overlying soft tissues appear unremarkable. IMPRESSION: No acute cardiopulmonary abnormalities or focal consolidation. Dictated by: Huy Maria M.D. on 04/24/2025 at 10:01 Approved by: Huy Maria M.D. on 04/24/2025 at 10:01
[2025-04-24 09:50] LABS: Add Manual Diff / Slide Review NO; Hematocrit 40.5 % (36-46); Hemoglobin 13.7 g/dL (12.0-16.0); Lymphocytes Absolute Auto 1200 /uL (1100-4500); Mean Corpuscular HGB Conc 33.8 % (30-36); Mean Corpuscular Hemoglobin 29.0 PG (26-34); Mean Corpuscular Volume 85.9 fL (80-100); Platelet Count 260 X10^3/uL (150-400)
--- NOTE | 2025-04-24 10:06 | ED.CHESTPAIN ---
HPI - Chest Pain General Chief Complaint: Chest Pain Stated Complaint: chest px lft arm tingling Time Seen by Provider: 04/24/25 09:37 Source: patient Mode of arrival: Ambulatory Limitations: no limitations Limitations: no limitations History of Present Illness HPI narrative: 79-year-old female history of hypertension not currently treated presents with a complaint of chest discomfort that describes as left-sided underneath the left breast radiates up towards the deltoid region of the arm. She describes it as intermittent but very brief for a 2nd or 2 and then resolved. She states nothing seems to make it better or worse. She has noted that a little bit of lower abdominal discomfort that she describes as sort of flank but sometimes in the middle. This started last night has been persisting. She has not had similar symptoms in the past. Denies fevers she did feel chilled last night for about 15 minutes denies any shortness of breath. Has not been changing location. No nausea or vomiting, has chronic constipation no urinary symptoms but has chronic urinary frequency. No new swelling in extremities. Patient did take 324 mg of aspirin last night at 9:45 p.m.. She states she does not take any daily medications only B12 and magnesium. Notes she has been told her blood pressure is chronically elevated in the past but has not ever started medications. She has had prior fibroid surgery, x2, cholecystectomy, hysterectomy, no cardiac or lung surgeries. No tobacco, alcohol or recreational drugs. Primary care is Nathalia Castrejon. Related Data Home Medications ?Medication ?Instructions ?Recorded ?Confirmed No Known Home Medications 10/04/23 10/19/24 Allergies Allergy/AdvReac Type Severity Reaction Status Date / Time nitroglycerin AdvReac Severe Bradycardia Verified 04/24/25 12:00 /Hypotensio n meperidine (From Demerol) AdvReac Mild nightmares Verified 04/24/25 09:34 Review of Systems Review of Systems ROS Unobtainable: All systems reviewed & are unremarkable except as noted in HPI and below Patient History Medical History History of syncope History of panic attacks History of anxiety Smoking Status: Never smoker alcohol intake frequency: a few times a month Exam Narrative Exam Narrative: GENERAL: Alert and oriented x three, female in mild distress HEENT: Head normocephalic, atraumatic, EOMI, pupils reactive, face symmetric, moist mucous membranes NECK: Supple, full range of motion CARDIOVASCULAR: Regular rate and rhythm without murmurs, rubs or gallops. No JVD. No swelling bilateral upper and lower extremities. Chest pain did not reproducible. No skin changes. RESPIRATORY: Breath sounds equal bilaterally, no wheezes rales or rhonchi. No tachypnea. ABDOMEN: Soft, nontender. Normoactive bowel sounds all 4 quadrants. No guarding or rebound, rigidity, no mass, no pulsatile bruit or mass : No CVA tenderness EXTREMITIES: Normal range of motion, no clubbing or edema. Neurovascularly intact NEUROLOGICAL: Cranial nerves II through XII grossly intact. Moving all extremities SKIN: Warm, dry, no petechiae, no rashes or lesions. Initial Vital Signs Initial Vital Signs: Vital Signs Pulse Rate 75 04/24/25 09:27 Respiratory Rate 22 04/24/25 09:27 Scores HEART Score Heart Score history: Moderately Suspicious Heart Score EKG: Normal Heart Score Age: > or = 65 years old Heart Score risk factors: 1-2 risk factors Heart Score troponin: < or = to normal limit Heart Score Total: 4 Course Orders Ordered: Discontinued Medications Aspirin (Aspirin 81 Mg Chew Tab) 324 mg PO NOW ONE Stop: 04/24/25 09:37 Last Admin: 04/24/25 13:20 Dose: Not Given Documented By: AMANDA Nitroglycerin (Nitroglycerin 0.4 Mg Sl Tab) 0.4 mg SL NOW ONE Stop: 04/24/25 11:13 Last Admin: 04/24/25 11:20 Dose: 0.4 mg Documented By: AMANDA Ondansetron HCl (Ondansetron 4 Mg/2 Ml Inj) 4 mg IV NOW ONE Stop: 04/24/25 11:39 Last Admin: 04/24/25 11:44 Dose: 4 mg Documented By: AMANDA Vital Signs Vital signs: Vital Signs - 8 hr 04/24/25 09:27 04/24/25 09:29 04/24/25 09:29 Temperature Pulse Rate 75 76 Respiratory Rate 22 16 Blood Pressure 217/102 H Pulse Oximetry 97 Oxygen Delivery Method 04/24/25 09:30 04/24/25 09:32 04/24/25 09:32 Temperature Pulse Rate 73 70 Respiratory Rate 14 19 Blood Pressure 193/85 H Pulse Oximetry 98 97 Oxygen Delivery Method 04/24/25 09:34 04/24/25 10:00 04/24/25 10:00 Temperature 99.4 F Pulse Rate 79 69 Respiratory Rate 18 23 Blood Pressure 193/85 H 195/91 H Pulse Oximetry 99 97 Oxygen Delivery Method Room Air 04/24/25 10:30 04/24/25 10:30 04/24/25 11:00 Temperature Pulse Rate 70 75 Respiratory Rate 18 24 Blood Pressure 204/101 H Pulse Oximetry 97 93 Oxygen Delivery Method 04/24/25 11:01 04/24/25 11:01 04/24/25 11:20 Temperature Pulse Rate 74 71 Respiratory Rate 28 H Blood Pressure 208/88 H 168/81 H Pulse Oximetry 94 Oxygen Delivery Method 04/24/25 11:23 04/24/25 11:23 04/24/25 11:30 Temperature Pulse Rate 72 71 Respiratory Rate 26 H 25 H Blood Pressure 168/81 H Pulse Oximetry 97 94 Oxygen Delivery Method 04/24/25 11:31 04/24/25 11:31 04/24/25 11:35 Temperature Pulse Rate 62 Respiratory Rate 19 Blood Pressure 102/51 L 132/61 Pulse Oximetry 96 Oxygen Delivery Method 04/24/25 11:35 04/24/25 11:40 04/24/25 11:40 Temperature Pulse Rate 63 59 L Respiratory Rate 31 H 21 Blood Pressure 97/54 L Pulse Oximetry 90 L 94 Oxygen Delivery Method 04/24/25 11:45 04/24/25 11:45 04/24/25 11:50 Temperature Pulse Rate 68 Respiratory Rate 33 H Blood Pressure 103/56 L 119/60 Pulse Oximetry 97 Oxygen Delivery Method 04/24/25 11:50 04/24/25 11:55 04/24/25 11:55 Temperature Pulse Rate 61 62 Respiratory Rate 25 H 28 H Blood Pressure 125/66 Pulse Oximetry 95 96 Oxygen Delivery Method 04/24/25 12:00 04/24/25 12:00 04/24/25 12:05 Temperature Pulse Rate 57 L 62 Respiratory Rate 33 H 25 H Blood Pressure 134/67 Pulse Oximetry 95 98 Oxygen Delivery Method 04/24/25 12:05 04/24/25 12:07 04/24/25 12:07 Temperature Pulse Rate 61 Respiratory Rate 27 H Blood Pressure 129/69 125/61 Pulse Oximetry 98 Oxygen Delivery Method 04/24/25 12:17 04/24/25 12:17 04/24/25 12:20 Temperature Pulse Rate 72 Respiratory Rate 40 H Blood Pressure 135/62 157/70 H Pulse Oximetry 93 Oxygen Delivery Method 04/24/25 12:20 04/24/25 12:25 04/24/25 12:25 Temperature Pulse Rate 72 66 Respiratory Rate Blood Pressure 146/70 H Pulse Oximetry 99 Oxygen Delivery Method 04/24/25 12:30 04/24/25 12:30 04/24/25 12:35 Temperature Pulse Rate 61 63 Respiratory Rate Blood Pressure 142/67 H Pulse Oximetry 99 95 Oxygen Delivery Method 04/24/25 12:35 04/24/25 12:40 04/24/25 12:40 Temperature Pulse Rate 66 Respiratory Rate Blood Pressure 138/72 156/69 H Pulse Oximetry 96 Oxygen Delivery Method 04/24/25 12:45 04/24/25 12:45 04/24/25 12:50 Temperature Pulse Rate 65 61 Respiratory Rate Blood Pressure 148/71 H Pulse Oximetry 96 96 Oxygen Delivery Method 04/24/25 12:50 04/24/25 12:55 04/24/25 12:55 Temperature Pulse Rate 65 Respiratory Rate Blood Pressure 142/69 H 133/67 Pulse Oximetry 97 Oxygen Delivery Method 04/24/25 13:00 04/24/25 13:00 04/24/25 13:05 Temperature Pulse Rate 66 Respiratory Rate Blood Pressure 137/66 137/65 Pulse Oximetry 95 Oxygen Delivery Method 04/24/25 13:05 04/24/25 13:10 04/24/25 13:10 Temperature Pulse Rate 70 63 Respiratory Rate Blood Pressure 135/69 Pulse Oximetry 97 98 Oxygen Delivery Method MDM - Chest Pain Lab Data 04/24/25 09:43 04/24/25 09:43 Labs: Lab Results 04/24/25 04/24/25 Range/Units 09:43 11:39 WBC 5.5 (4.5-11.0) X10^3/uL RBC 4.72 (4.0-5.2) X10^6/uL Hgb 13.7 (12.0-16.0) g/dL Hct 40.5 (36-46) % MCV 85.9 (80-100) fL MCH 29.0 (26-34) PG MCHC 33.8 (30-36) % RDW 12.9 (11.6-14.8) % Plt Count 260 (150-400) X10^3/uL Neut % (Auto) 66.8 (50-75) % Lymph % (Auto) 22.2 L (25-40) % [place] % (Auto) 7.6 (3-14) % Eos % (Auto) 2.0 (2-4) % Baso % (Auto) 1.4 (0-2) % Neut # (Auto) 3700 (1193-0162) /uL Lymph # (Auto) 1200 (8044-1621) /uL [place] # (Auto) 400 (0-900) /uL Eos # (Auto) 100 (0-450) /uL Baso # (Auto) 100 (0-100) /uL PT 11.3 (9.4-12.5) SECONDS INR 1.0 (0.9-1.3) APTT 38 H (25.1-36.5) SECONDS Sodium 132 L (137-145) mmol/L Potassium 4.3 (3.4-5.1) mmol/L Chloride 100 (98-107) mmol/L Carbon Dioxide 26 (22-32) mmol/L BUN 18 H (7-17) mg/dL Creatinine 0.76 (0.52-1.04) mg/dL Estimated GFR > 60 (>60) mL/min BUN/Creatinine Ratio 23.7 H (6-22) Glucose 90 (70-99) mg/dL Calcium 8.7 (8.4-10.2) mg/dL Magnesium 2.0 (1.6-2.3) mg/dL Total Bilirubin 0.4 (0.2-1.3) mg/dL AST 24 (14-36) IU/L ALT 16 (<35) IU/L Alkaline Phosphatase 65 (38-126) U/L Total Creatine Kinase 58 (30-135) U/L Troponin I < 0.012 < 0.012 (0.01-0.034) ng/mL NT-Pro-B Natriuret Pep 90 (<450) pg/mL Total Protein 7.4 (6.3-8.2) g/dL Albumin 4.2 (3.5-5.0) g/dL Globulin 3.2 (1.7-4.1) g/dL Albumin/Globulin Ratio 1.3 (1.0-2.8) Lipase 220 (23-300) U/L MDM Narrative Medical decision making narrative: Sinus rhythm rate of 71 [place] 150 QRS 82 QTC of 415, no acute ST changes appreciated. Does not have a prior for comparison. Repeat EKG has sinus rhythm rate of 65 [place] 154 QRS 82 QTC of 461, no acute ST-elevation or depression. Chest x-ray shows no acute cardiopulmonary abnormality Labs, white count of 5.5 hemoglobin of 13 platelets of 260, INR is 1, PTT is 38. Sodium is 132 electrolytes are otherwise appropriate BUN 18 creatinine 0.76 LFTs are negative troponins less than 0.012 with a BNP of 90. Repeat troponins less than 0.012 CTA chest abdomen pelvis no acute aortic aneurysm no acute aortic syndrome, scattered atherosclerosis 1.4 cm left thyroid nodule heterogeneous thyroid and has not other suspected smaller thyroid nodules. Bibasilar atelectasis. No focal consolidations. Small hiatal hernia. Diffuse hypotension in the liver parenchyma rhythm with a sprain compatible with a hepatic steatosis. CT angiogram chest abdomen pelvis without acute abnormalities no evidence for aneurysmal dilation of thoracic or abdominal aorta. Patient took aspirin 324 mg at 9:45 p.m. Patient has a nitro sublingual here in the department she is quite hypertensive she dropped her blood pressure significantly into the 100 range is full as her heart rate into the 30s has a syncopal episode was placed in reverse Trendelenburg blood pressure was not improving and heart rate improved quite quickly. Patient resumed mentation received some fluids. Her has been states this is what happens when she has a syncopal episode. Patient also received Zofran. Patient has a heart score of 4, discussed observation for chest pain although her symptoms are a little bit atypical although the location is not. Patient and I discussed keeping her for observation she prefers to return home at this time. Patient had ambulation trial which he tolerated well. Discussed thyroid nodule the patient does not need to follow this up. Discharge Plan Departure Patient Disposition: Home Clinical Impression: Atypical chest pain, Left thyroid nodule Instructions: DI for Atypical Chest Pain Activity Restrictions/Additional Instructions: Follow up with your physician for recheck. I do think he would benefit from further evaluation and possibly cardiac stress test. Call your physician today to set up follow up. You are found to have a left thyroid nodule which did have follow up with your physician. Please return if you develop new or concerning changes, worsening or new chest pain, increased shortness of breath, lightheadedness or passing out, vomiting, new swelling of your extremities or any other new or concerning changes. Prescriptions: No Action No Known Home Medications Referrals: Nathalia Castrejon FNP-BC [Primary Care Provider, Family Practice] Stand Alone Forms: Patient Portal/API
[2025-04-24 10:09] LABS: INR 1.0 (0.9-1.3); Prothrombin Time 11.3 SECONDS (9.4-12.5)
[2025-04-24 10:11] LABS: PTT Partial Thromboplastin Tim 38 SECONDS (25.1-36.5)
[2025-04-24 10:25] LABS: Alanine Aminotransferase 16 IU/L (<35); Albumin 4.2 g/dL (3.5-5.0); Albumin Globulin Ratio 1.3 (1.0-2.8); Alkaline Phosphatase 65 U/L (38-126); Blood Urea Nitrogen 18 mg/dL (7-17); Calcium 8.7 mg/dL (8.4-10.2); Carbon Dioxide 26 mmol/L (22-32); Chloride 100 mmol/L (98-107); Creatine Kinase 58 U/L (30-135); Estimated Glomerular Filt Rate > 60 mL/min (>60); Globulin 3.2 g/dL (1.7-4.1); Glucose 90 mg/dL (70-99); HEMOLYSIS < 15 (0-50); Lipase 220 U/L (23-300); Magnesium 2.0 mg/dL (1.6-2.3); Potassium 4.3 mmol/L (3.4-5.1); Sodium 132 mmol/L (137-145); Total Protein 7.4 g/dL (6.3-8.2)
--- NOTE | 2025-04-24 10:30 | PC.NURSE ---
Pt ambulated to restroom, hat placed on toilet for urine collection. Pt missed hat while urinating.
[2025-04-24 10:37] LABS: NT-proBNP (BNP-Adult 18+) 90 pg/mL (<450); Troponin I < 0.012 ng/mL (0.01-0.034)
[2025-04-24] MEDS: NITROGLYCERIN 0.4 MG SL TAB SL (11:20)
--- NOTE | 2025-04-24 11:32 | DI.CT.S_ITS ---
PROCEDURE: CT ANGIO CHEST ABDOMEN PELVIS INDICATIONS: L chest pain, radiates to abdomen, htn TECHNIQUE: Precontrast 5 mm thick sections acquired from the lung apices to the iliac crests. After the administration of intravenous contrast, 2.5 mm thick sections again acquired from the lung apices to the iliac crests. Maximum intensity projection (MIP) oblique sagittal and coronal reformats were then acquired. For radiation dose reduction, the following was used: automated exposure control. COMPARISON: None. FINDINGS: Image quality: Diagnostic. AORTA: No aortic aneurysm. No acute aortic syndrome. Scattered atherosclerosis. CHEST: Lower Neck: No enlarged lymph nodes. Thyroid: There is a 1.4 cm left thyroid lobe nodule. Heterogeneous thyroid enhancement with other suspected smaller thyroid nodules. Axillae: No enlarged lymph nodes. Chest Wall: Unremarkable. Lungs and Pleura: No pneumothorax or pleural effusions. Bibasilar atelectasis. No focal consolidation. No suspicious pulmonary nodules. No septal thickening or nodularity. Visualized airways appear patent. Heart: Heart size is normal. No pericardial effusion. Multivessel atherosclerotic calcifications of the coronary arteries. Thoracic Vessels: Pulmonary arteries demonstrate normal size. Mediastinum and Rachel: No enlarged lymph nodes. Esophagus: No wall thickening. Small hiatal hernia. ABDOMEN: Liver: No solid mass. There is diffuse hypoattenuation of the liver parenchyma relative to the spleen compatible with hepatic steatosis. Gallbladder: Absent Biliary ducts: No biliary dilation. Pancreas: No ductal dilation. Spleen: Size is within normal limits. Adrenal Glands: No adrenal nodules. Kidneys and Ureters: No hydronephrosis. No solid mass. No complex renal cystic lesion which requires follow up. Stomach and Bowel: Normal colonic caliber, without significant wall thickening. Scattered colonic diverticula without acute inflammation. No evidence for small bowel obstruction or associated inflammatory changes. The appendix is not definitively visualized. However, no secondary findings of acute inflammation are noted in the right lower quadrant. Peritoneum: No abnormal intraperitoneal fluid. No free air. Ventral Wall: No hernia. Abdominal Nodes: No retroperitoneal or mesenteric adenopathy by size criteria. Vessels: Inferior vena cava is normal in size. PELVIS: Pelvic Organs: Unremarkable. Bladder: Unremarkable. Pelvic Nodes: No enlarged lymph nodes. Miscellaneous: No inguinal hernias are seen. Bones: Unremarkable. Visualized osseous structures appear intact without acute fracture or focal destructive lesion. No acute compression fractures of the imaged spine. IMPRESSION: CT angiogram of the chest, abdomen, and pelvis without acute abnormalities. Specifically, no evidence for aneurysmal dilatation of the thoracic or abdominal aorta. No findings to suggest acute aortic syndrome. Other chronic/non-acute findings as above. Dictated by: Huy Maria M.D. on 04/24/2025 at 12:34 Approved by: Huy Maria M.D. on 04/24/2025 at 12:43
[2025-04-24] MEDS: ONDANSETRON 4 MG/2 ML INJ IV (11:44)
--- NOTE | 2025-04-24 11:46 | PC.NURSE ---
Patient given 1 nitro sl, patients blood pressure at the time 168 systolic and patient endorsing intermittent sharp chest pain. Patients blood pressure dropped to 100 systolic and patient had syncopal episode, heart rate down to 30's and not responsive. Dr Krause at bedside. 2nd IV started, fluid bolus hung, patient endorsing nausea, zofran ordered. Patient reports seeing zig zag floaties in both eyes
--- NOTE | 2025-04-24 11:48 | EKG_ITS ---
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
[2025-04-24 12:10] LABS: Troponin I < 0.012 ng/mL (0.01-0.034)
== END 2025-04-24 13:54 | disposition home or self-care (01) ==
PROVIDERS: Emergency Provider Emergency Medicine; PCP Nurse Practitioner Family
DX: R07.89 Other chest pain (principal); E04.1 Nontoxic single thyroid nodule; R20.2 Paresthesia of skin; I10 Essential (primary) hypertension; R10.30 Lower abdominal pain, unspecified
CPT/HCPCS: 36415; 71045; 71275; 74174; 80053; 82550; 83690; 83735; 83880; 84484; 85025; 85610; 85730; 93005; 93010; 96374; 99284; J2405; Q9967